=== PATIENT | female | born 1990 | race Caucasian/White ===

== ENCOUNTER 2020-05-31 10:39 | Emergency (ER) | payer MEDICAID, SELFPAY ==
[2020-05-31 11:11] VITALS: BP 113/67; PULSE 70; RESP 16; TEMP 36.9; O2SAT 100; BMI 20.5
--- NOTE | 2020-05-31 11:26 | ED.ABDPAIN ---
HPI - Abdominal Pain General Chief Complaint: Abdominal Pain Stated Complaint: upper abd pain Time Seen by Provider: 05/31/20 11:26 Source: patient Mode of arrival: ambulatory Limitations: no limitations History of Present Illness HPI narrative: one day of upper abdominal pain. Patient thought that she has a history of PE. She was admitted for psychiatric reasons at the time. patient complaining of diarrhea and shortness of breath MD elicited complaint: abdominal pain Onset (ago): day(s) Pain Consistency: constant Related Data Previous Rx's Medication Instructions Recorded pantoprazole [Protonix] 40 mg PO DAILY #20 tab 05/31/20 Allergies Allergy/AdvReac Type Severity Reaction Status Date / Time amoxicillin [Amoxicillin] Allergy Unknown HIVES Unverified 03/03/20 18:12 From Augmentin Allergy Unknown HIVES Uncoded 03/03/20 18:12 Review of Systems Constitutional: Reports no additional constitutional complaints Eyes: Reports no additional eye complaints Denies dizziness Cardiovascular: Reports no additional cardiovascular complaints Respiratory: Reports as per HPI Gastrointestinal: Reports no additional gastrointestinal complaints Genitourinary: Reports no additional female genitourinary complaints Musculoskeletal: Reports no additional musculoskeletal complaints Skin/Breast: Denies rash Reports system reviewed and no additional complaints, except as documented, Denies dizziness and Denies Sensory deficit (Neuro) Psychiatric: Denies anxiety Physical Exam Vital Signs: Vital Signs: Last Vital Signs Temp 98 F 05/31/20 11:38 Pulse 59 05/31/20 13:52 Resp 16 05/31/20 13:52 BP 103/52 L 05/31/20 13:52 Pulse Ox 99 05/31/20 13:52 Body Mass Index 20.5 Const: Other: very anxious General: healthy appearing Nutritional Appearance: average body habitus Orientation/consciousness: oriented to person and patient oriented x3 Limitations: no limitations HENMT: Head: Yes normal to inspection Ears: external ears normal General nose exam: Normal external nose present Mouth: Normal oral and palatal mucosa present and oropharynx normal Throat: Yes posterior oropharynx normal Eyes: General: appearance normal, both eyes and all related structures Neck: Other: supple Neck: Yes normal visual inspection Chest: Chest palpation & inspection: normal inspection of the chest Resp: Auscultation: clear to auscultation bilaterally Cardio: Other: 2/6 TITA Jugular venous distension: no JVD Rate: regular rate Rhythm: regular rhythm Heart sounds: S1 normal heart sound present and S2 normal heart sound present GI: Inspection: Yes normal to inspection Palpation (GI): Soft to palpation, nontender and No hepatosplenomegaly present Auscultation: normal bowel sounds : General: Yes no CVA tenderness Back/Spine/Pelvis: Back: no CVA tenderness Skin: General skin exam: no rashes or lesions noted Neuro: General: oriented to person and patient oriented x3 Cranial nerves: Yes CN's II-XII intact bilaterally Motor exam (neuro): 5/5 motor strength present throughout Sensory Exam: No Sensory deficit (Neuro) Extrem: General: Yes normal to inspection Psych: Appearance: grossly normal MDM - Abdominal Pain MDM Narrative Medical decision making narrative: patient resting comfortably no evidence of acute abdominal pathology Differential Diagnosis Differential diagnosis: Likely abdominal pain, gastroenteritis and gastritis Lab Data Result diagrams: 05/31/20 12:05/31/20 12: Labs: Lab Results 05/31/20 05/31/20 05/31/20 Range/Units 12:28 12: 12:28 WBC 5.4 (4.8-10.8) X10*3/uL RBC 4.89 (4.20-5.50) X10*6/uL Hgb 12.6 (12.0-16.0) g/dl Hct 39.8 (37-47) % MCV 81.4 (80-98) fL MCH 25.8 L (27.0-33.0) pg MCHC 31.7 (31.0-35.0) g/dl RDW 16.6 H (11.0-16.0) % Plt Count 295 (160-400) X10*3/uL MPV 11.8 (9.4-12.3) fL Immature Gran % (Auto) 0.2 (0.0-0.4) % Neut % (Auto) 54.2 (45-73) % Lymph % (Auto) 39.1 (20-40) % [place] % (Auto) 6.1 (2-11) % Eos % (Auto) 0.2 (0-4) % Baso % (Auto) 0.2 (0-2) % Lymph # (Auto) 2.1 (1.2-4.9) X10*3/uL [place] # (Auto) 0.3 (0.1-1.2) X10*3/uL Eos # (Auto) 0.0 (0.0-0.4) X10*3/uL Baso # (Auto) 0.0 (0.0-0.2) X10*3/uL Abs Immat Gran (auto) 0.01 (0.00-0.03) X10*3/uL Absolute Neuts (auto) 2.9 (2.0-8.3) X10*3/uL Absolute Nucleated RBC 0.000 (0.0-0.012) X10*3/uL Nucleated RBC % (auto) 0.0 (0.0-0.2) /100WBC D-Dimer < 200 NG/ML Sodium 140 (135-145) mmol/L Potassium 4.1 (3.3-5.1) mmol/l Chloride 106 (96-108) mmol/L Carbon Dioxide 26 (22-29) mmol/L Anion Gap 12 (12-20) BUN 8 L (9-16) mg/dL Creatinine 0.86 (0.5-1.4) mg/dL Estim Creat Clear Calc 82.1 Estimated GFR > 60 Random Glucose 86 (60-115) mg/dL Calcium 9.8 (8.4-10.2) mg/dL Total Bilirubin 0.5 (0.0-1.0) mg/dL Direct Bilirubin 0.2 (0.0-0.5) mg/dL AST 19 (5-31) U/L ALT 44 H (0-31) U/L Alkaline Phosphatase 59 (39-117) U/L Total Protein 8.5 H (6.5-8.0) g/dL Albumin 5.3 H (3.5-5.0) g/dL Lipase 18 (8-78) U/L Urine Color Urine Appearance Urine pH (5.0-8.0) Ur Specific [place] (1.005-1.025) Urine Protein (NEG-TRACE) MG/DL Urine Glucose (UA) (NEG) MG/DL Urine Ketones (NEG) MG/DL Urine Blood (NEG) Urine Nitrite (NEG) Ur Leukocyte Esterase (NEG) Urine RBC (0) /HPF Urine WBC (0-4) /HPF Ur Squamous Epith Cells /LPF Urine Bacteria /LPF Urine Mucus /LPF Urine Test (NEGATIVE) Coronavirus (PCR) (Negative) SARS-CoV-2 (PCR) Influenza Type A (PCR) (Negative) Influenza Type B (PCR) (Negative) RSV RNA Qual (PCR) (Negative) 05/31/20 05/31/20 05/31/20 Range/Units 12:28 12:28 12:29 WBC (4.8-10.8) X10*3/uL RBC (4.20-5.50) X10*6/uL Hgb (12.0-16.0) g/dl Hct (37-47) % MCV (80-98) fL MCH (27.0-33.0) pg MCHC (31.0-35.0) g/dl RDW (11.0-16.0) % Plt Count (160-400) X10*3/uL MPV (9.4-12.3) fL Immature Gran % (Auto) (0.0-0.4) % Neut % (Auto) (45-73) % Lymph % (Auto) (20-40) % [place] % (Auto) (2-11) % Eos % (Auto) (0-4) % Baso % (Auto) (0-2) % Lymph # (Auto) (1.2-4.9) X10*3/uL [place] # (Auto) (0.1-1.2) X10*3/uL Eos # (Auto) (0.0-0.4) X10*3/uL Baso # (Auto) (0.0-0.2) X10*3/uL Abs Immat Gran (auto) (0.00-0.03) X10*3/uL Absolute Neuts (auto) (2.0-8.3) X10*3/uL Absolute Nucleated RBC (0.0-0.012) X10*3/uL Nucleated RBC % (auto) (0.0-0.2) /100WBC D-Dimer NG/ML Sodium (135-145) mmol/L Potassium (3.3-5.1) mmol/l Chloride (96-108) mmol/L Carbon Dioxide (22-29) mmol/L Anion Gap (12-20) BUN (9-16) mg/dL Creatinine (0.5-1.4) mg/dL Estim Creat Clear Calc Estimated GFR Random Glucose (60-115) mg/dL Calcium (8.4-10.2) mg/dL Total Bilirubin (0.0-1.0) mg/dL Direct Bilirubin (0.0-0.5) mg/dL AST (5-31) U/L ALT (0-31) U/L Alkaline Phosphatase (39-117) U/L Total Protein (6.5-8.0) g/dL Albumin (3.5-5.0) g/dL Lipase (8-78) U/L Urine Color YELLOW Urine Appearance CLEAR Urine pH 6.0 (5.0-8.0) Ur Specific [place] 1.020 (1.005-1.025) Urine Protein NEG (NEG-TRACE) MG/DL Urine Glucose (UA) NEG (NEG) MG/DL Urine Ketones 5 (NEG) MG/DL Urine Blood NEG (NEG) Urine Nitrite NEG (NEG) Ur Leukocyte Esterase TRACE H (NEG) Urine RBC 0 (0) /HPF Urine WBC 1-4 (0-4) /HPF Ur Squamous Epith Cells 2+ /LPF Urine Bacteria NONE /LPF Urine Mucus 1+ /LPF Urine Test NEGATIVE (NEGATIVE) Coronavirus (PCR) NEGATIVE (Negative) SARS-CoV-2 (PCR) Cancelled Influenza Type A (PCR) NEGATIVE (Negative) Influenza Type B (PCR) NEGATIVE (Negative) RSV RNA Qual (PCR) NEGATIVE (Negative) Discharge Plan Discharge Clinical Impression: Gastritis and duodenitis Patient Disposition: Home, Self-Care Instructions: Gastritis (ED) Prescriptions: New pantoprazole [Protonix] 40 mg tablet,delayed release (DR/EC) 40 mg PO DAILY Qty: 20 RF: 0 PMFSH Past Medical History Medical History Interstitial cystitis Pulmonary embolism Social History Social History Advance Directives: No Advance Directives Information Provided: No
--- NOTE | 2020-05-31 11:34 | XR_ITS ---
EXAMINATION: XR CHEST CLINICAL INFORMATION: Chest pain, shortness of breath COMPARISON: None TECHNIQUE: 2 views of the chest were obtained. FINDINGS: There is no pneumothorax, pleural reaction, airspace consolidation, or groundglass opacity. The costophrenic sulci are clear. There is no effusion. The heart is normal in size and the hilar and mediastinal contours are normal. There is mild dextrocurvature thoracolumbar region. There is a fine 6 mm needle or wire overlying right base of neck, presumably outside of the patient. Clinically correlate. XR/XR chest 2V IMPRESSION: 1. Lungs clear. 2. 6 mm needle or wire overlying right base of neck, presumably outside of the patient.
[2020-05-31 11:38] VITALS: BP 127/54; PULSE 90; RESP 15; TEMP 36.6; O2SAT 97; BMI 20.5
[2020-05-31 12:36] LABS: MANUAL DIFF FLAG NO
[2020-05-31 12:42] LABS: Basophils Percent Auto 0.2 % (0-2); Eosinophils Percent Auto 0.2 % (0-4); Hematocrit 39.8 % (37-47); Hemoglobin 12.6 g/dl (12.0-16.0); Imm Gran Abs Auto 0.01 X10*3/uL (0.00-0.03); Imm Gran Pct Auto 0.2 % (0.0-0.4); Lymphocytes Absolute Auto 2.1 X10*3/uL (1.2-4.9); Lymphocytes Percent Auto 39.1 % (20-40); Mean Corpuscular HGB Conc 31.7 g/dl (31.0-35.0); Mean Corpuscular Hemoglobin 25.8 pg (27.0-33.0); Mean Corpuscular Volume 81.4 fL (80-98); Mean Platelet Volume 11.8 fL (9.4-12.3); Monocytes Absolute Auto 0.3 X10*3/uL (0.1-1.2); Monocytes Percent Auto 6.1 % (2-11); Neutrophils Absolute Auto 2.9 X10*3/uL (2.0-8.3); Neutrophils Percent Auto 54.2 % (45-73); Platelet Count 295 X10*3/uL (160-400); Red Blood Count 4.89 X10*6/uL (4.20-5.50); Red Cell Distribution Width 16.6 % (11.0-16.0); White Blood Count 5.4 X10*3/uL (4.8-10.8)
[2020-05-31 12:46] LABS: Glucose Urine UA NEG (NEG); Leukocyte Esterase Urine TRACE (NEG); Nitrite Urine NEG (NEG); Urine Blood NEG (NEG); Urine Ketones 5 MG/DL (NEG); Urine Protein NEG (NEG-TRACE)
[2020-05-31] MEDS: LORazepam 2 MG/ML VIAL 1 MG IVPUSH (12:48)
[2020-05-31 12:49] LABS: UPreg QC Valid YES; Urine Pregnancy NEGATIVE (NEGATIVE)
[2020-05-31 12:50] LABS: Appearance Urine CLEAR; Color Urine YELLOW
[2020-05-31 12:52] LABS: D Dimer < 200 NG/ML
[2020-05-31 13:04] LABS: Mucus Urine 1+ /LPF; RBC Urine 0 /HPF (0); Squamous Epithelial Cell Urine 2+ /LPF
[2020-05-31 13:09] LABS: Alanine Aminotransferase 44 U/L (0-31); Albumin Level 5.3 g/dL (3.5-5.0); Alkaline Phosphatase 59 U/L (39-117); Anion Gap 12 (12-20); Aspartate Amino Transferase 19 U/L (5-31); Bilirubin Direct 0.2 mg/dL (0.0-0.5); Bilirubin Total 0.5 mg/dL (0.0-1.0); Blood Urea Nitrogen 8 mg/dL (9-16); Calcium 9.8 mg/dL (8.4-10.2); Carbon Dioxide 26 mmol/L (22-29); Chloride 106 mmol/L (96-108); Creatinine Clr Calc Pharmacy 82.1; Estimated Glomerular Filt Rate > 60; Glucose Random 86 mg/dL (60-115); Lipase 18 U/L (8-78); Potassium 4.1 mmol/l (3.3-5.1); Sodium 140 mmol/L (135-145); Total Protein 8.5 g/dL (6.5-8.0)
[2020-05-31 13:18] LABS: Influenza A PCR NEGATIVE (Negative); Influenza B PCR NEGATIVE (Negative); Resp Syncy Virus RNA Qual PCR NEGATIVE (Negative); SARS COV2 PCR INHOUSE NEGATIVE (Negative)
[2020-05-31 13:52] VITALS: BP 103/52; PULSE 59; RESP 16; O2SAT 99
== END 2020-05-31 14:22 | disposition home or self-care (01) ==
PROVIDERS: Emergency Provider Emergency Medicine
DX: K29.00 Acute gastritis without bleeding (principal); K29.80 Duodenitis without bleeding; R10.10 Upper abdominal pain, unspecified; Z20.828 Contact with and (suspected) exposure to other viral communicable diseases; Z79.899 Other long term (current) drug therapy
CPT/HCPCS: 0241U; 36415; 71046; 80048; 80076; 81001; 81025; 83690; 85025; 85379; 87086; 96374; 99283; 99284; J2060; U0003

== ENCOUNTER 2020-06-22 18:31 | Inpatient (IN) | payer MEDICAID, OTHER, SELFPAY ==
[2020-06-22 20:00] VITALS: BP 119/73; PULSE 79; RESP 18; TEMP 37.2; O2SAT 99
[2020-06-22 20:19] VITALS: BP 124/58; PULSE 78; RESP 16; TEMP 36.7; O2SAT 99; BMI 19.7
--- NOTE | 2020-06-22 21:12 | MHC.RECOVSUP ---
? Reason for consult seeking detox o Current location: [facility] o Identified substance use concern: Herion Withdrawal - Seeking ATS (detox) - Support ? Intervention: o ATS bed search started 9:15PM/compleated 9:30PM Patient wants to go start MAT. But Doctor Deem patient not eligible o Community resources provided o Harm reduction discussion ? Plan: Follow up tomorrow o Patient awaiting crisis evaluation ? Additional information:
--- NOTE | 2020-06-22 21:33 | ED_ITS ---
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 She states that she has been suicidal for the last week and has a plan to use medications such as her prior overdose with Zyprexa that she states occurred approximately 2 years ago. On review of documentation she was last admitted on [facility] in 2015 and at that time it was for alcohol as well as bipolar disorder. Currently, patient denies any fever, chills, shortness of breath, chest pain/palpitations, nausea/vomiting, abdominal pain, but is having some loose stools but otherwise denies urinary pain/burning/frequency and her LMP was approximately 2 weeks ago. Related Data Home Medications Medication Instructions Recorded Confirmed No Known Home Meds 06/22/20 06/22/20 Allergies Allergy/AdvReac Type Severity Reaction Status Date / Time amoxicillin [Amoxicillin] Allergy Unknown HIVES Verified 06/22/20 20:19 From Augmentin Allergy Unknown HIVES Uncoded 03/03/20 18:12 Review of Systems Review of Systems: Pertinent positives and negatives as stated in HPI 10 point review systems is otherwise negative. PMFSH Past Medical History Medical History (Updated 06/22/20 @ 21:35 by Lela Jeffers MD) Bipolar 1 disorder Interstitial cystitis Pulmonary embolism Social History Social History Advance Directives: No Advance Directives Information Provided: No Physical Exam Vital Signs: Vital Signs: Last Vital Signs Temp 97.9 F 06/22/20 22:00 Pulse 71 06/22/20 22:00 Resp 17 06/22/20 22:00 BP 126/58 L 06/22/20 22:00 Pulse Ox 99 06/22/20 22:00 Body Mass Index 19.7 VITAL SIGNS: Reviewed. GENERAL: Well developed, well nourished, in no acute distress. EARS: Ext canals without abnormality, TMs non-bulging and non-erythematous NOSE: Nares patent bilateral OROPHARYNX: no oral lesions noted, posterior pharynx clear and non-erythematous without noted tonsillar enlargement/erythema/exudates NECK: Supple, no adenopathy LUNGS: Normal breath sounds. No adventitious sounds or accessory muscle use. SpO2<99> CARDIOVASCULAR: Regular rate and rhythm without noted murmurs, no JVD or lower extremity edema. ABDOMEN: Soft, non-tender, non-distended with bowel sounds. No rigidity. No guarding. No palpable masses or hernias noted SKIN: Inspection of the skin reveals no rashes, but areas of ?skin picking? NEUROLOGIC: Alert and oriented x 4. Course Course Course Narrative: This is a 30-year-old female with history and clinical presentation consistent with request for detox from poly substances as well as stated suicidal ideation and vague plan. Will obtain labs, UA, COVID-19 swab and then clear for further evaluation by crisis. Review of all investigations is negative for any acute findings and patient is medically cleared for further evaluation by the crisis team. MDM - Psych Restraints Face to Face Assessment: Face to Face Assessment: Current Situation: After assessment of the patient, a review of the pertinent medical record and a discussion with nursing staff, I feel the patient requires a restrain interven tion. Reaction To: [] Medical Condition: [] Behavioral State: [] Continued Need: [] Lab Data Result diagrams: 06/23/20 05:31 06/23/20 05:31 Labs: Lab Results 06/22/20 06/22/20 06/23/20 Range/Units 22:15 22:15 03:41 WBC (4.8-10.8) X10*3/uL RBC (4.20-5.50) X10*6/uL Hgb (12.0-16.0) g/dl Hct (37-47) % MCV (80-98) fL MCH (27.0-33.0) pg MCHC (31.0-35.0) g/dl RDW (11.0-16.0) % Plt Count (160-400) X10*3/uL MPV (9.4-12.3) fL Immature Gran % (Auto) (0.0-0.4) % Neut % (Auto) (45-73) % Lymph % (Auto) (20-40) % [place] % (Auto) (2-11) % Eos % (Auto) (0-4) % Baso % (Auto) (0-2) % Lymph # (Auto) (1.2-4.9) X10*3/uL [place] # (Auto) (0.1-1.2) X10*3/uL Eos # (Auto) (0.0-0.4) X10*3/uL Baso # (Auto) (0.0-0.2) X10*3/uL Abs Immat Gran (auto) (0.00-0.03) X10*3/uL Absolute Neuts (auto) (2.0-8.3) X10*3/uL Absolute Nucleated RBC (0.0-0.012) X10*3/uL Nucleated RBC % (auto) (0.0-0.2) /100WBC Sodium (135-145) mmol/L Potassium (3.3-5.1) mmol/l Chloride (96-108) mmol/L Carbon Dioxide (22-29) mmol/L Anion Gap (12-20) BUN (9-16) mg/dL Creatinine (0.5-1.4) mg/dL Estim Creat Clear Calc Estimated GFR Random Glucose (60-115) mg/dL Calcium (8.4-10.2) mg/dL Magnesium (1.6-2.6) mg/dL Total Bilirubin (0.0-1.0) mg/dL AST (5-31) U/L ALT (0-31) U/L Alkaline Phosphatase (39-117) U/L Total Protein (6.5-8.0) g/dL Albumin (3.5-5.0) g/dL Urine Color YELLOW Urine Appearance CLEAR Urine pH 7.5 (5.0-8.0) Ur Specific [place] 1.020 (1.005-1.025) Urine Protein NEG (NEG-TRACE) MG/DL Urine Glucose (UA) NEG (NEG) MG/DL Urine Ketones NEG (NEG) MG/DL Urine Blood NEG (NEG) Urine Nitrite NEG (NEG) Ur Leukocyte Esterase NEG (NEG) Urine Test NEGATIVE (NEGATIVE) Urine Opiates Screen POSITIVE H (Not Detect) Ur Barbiturates Screen Not Detected (Not Detect) Ur Phencyclidine Scrn Not Detected (Not Detect) Ur Amphetamines Screen Not Detected (Not Detect) U Benzodiazepines Scrn Not Detected (Not Detect) Urine Cocaine Screen POSITIVE H (Not Detect) U Marijuana (THC) Screen Not Detected (Not Detect) Ethyl Alcohol mg/dL COVID-19 (EFREN) Negative (Negative) COVID-19 Clin Com See Note 06/23/20 06/23/20 06/23/20 Range/Units 05:31 05:31 05:31 WBC 7.8 (4.8-10.8) X10*3/uL RBC 4.56 (4.20-5.50) X10*6/uL Hgb 11.5 L (12.0-16.0) g/dl Hct 36.7 L (37-47) % MCV 80.5 (80-98) fL MCH 25.2 L (27.0-33.0) pg MCHC 31.3 (31.0-35.0) g/dl RDW 15.1 (11.0-16.0) % Plt Count 338 (160-400) X10*3/uL MPV 11.2 (9.4-12.3) fL Immature Gran % (Auto) 0.1 (0.0-0.4) % Neut % (Auto) 57.1 (45-73) % Lymph % (Auto) 31.0 (20-40) % [place] % (Auto) 8.8 (2-11) % Eos % (Auto) 2.7 (0-4) % Baso % (Auto) 0.3 (0-2) % Lymph # (Auto) 2.4 (1.2-4.9) X10*3/uL [place] # (Auto) 0.7 (0.1-1.2) X10*3/uL Eos # (Auto) 0.2 (0.0-0.4) X10*3/uL Baso # (Auto) 0.0 (0.0-0.2) X10*3/uL Abs Immat Gran (auto) 0.01 (0.00-0.03) X10*3/uL Absolute Neuts (auto) 4.5 (2.0-8.3) X10*3/uL Absolute Nucleated RBC 0.000 (0.0-0.012) X10*3/uL Nucleated RBC % (auto) 0.0 (0.0-0.2) /100WBC Sodium 139 (135-145) mmol/L Potassium 4.5 (3.3-5.1) mmol/l Chloride 105 (96-108) mmol/L Carbon Dioxide 26 (22-29) mmol/L Anion Gap 13 (12-20) BUN 10 (9-16) mg/dL Creatinine 0.74 (0.5-1.4) mg/dL Estim Creat Clear Calc 91.5 Estimated GFR > 60 Random Glucose 95 (60-115) mg/dL Calcium 9.2 D (8.4-10.2) mg/dL Magnesium 2.1 (1.6-2.6) mg/dL Total Bilirubin 0.4 (0.0-1.0) mg/dL AST 23 (5-31) U/L ALT 32 H (0-31) U/L Alkaline Phosphatase 54 (39-117) U/L Total Protein 7.1 (6.5-8.0) g/dL Albumin 3.9 D (3.5-5.0) g/dL Urine Color Urine Appearance Urine pH (5.0-8.0) Ur Specific [place] (1.005-1.025) Urine Protein (NEG-TRACE) MG/DL Urine Glucose (UA) (NEG) MG/DL Urine Ketones (NEG) MG/DL Urine Blood (NEG) Urine Nitrite (NEG) Ur Leukocyte Esterase (NEG) Urine Test (NEGATIVE) Urine Opiates Screen (Not Detect) Ur Barbiturates Screen (Not Detect) Ur Phencyclidine Scrn (Not Detect) Ur Amphetamines Screen (Not Detect) U Benzodiazepines Scrn (Not Detect) Urine Cocaine Screen (Not Detect) U Marijuana (THC) Screen (Not Detect) Ethyl Alcohol < 10 mg/dL COVID-19 (EFREN) (Negative) COVID-19 Clin Com Discharge Plan Discharge Prescriptions: No Action No Known Home Meds RF: 0
[2020-06-22 22:00] VITALS: BP 126/58; PULSE 71; RESP 17; TEMP 36.6; O2SAT 99
[2020-06-22 22:31] LABS: Appearance Urine CLEAR; Color Urine YELLOW; Glucose Urine UA NEG (NEG); Leukocyte Esterase Urine NEG (NEG); Nitrite Urine NEG (NEG); PH 7.5 (5.0-8.0); Urine Blood NEG (NEG); Urine Ketones NEG (NEG); Urine Protein NEG (NEG-TRACE)
[2020-06-22 22:32] LABS: UPreg QC Valid YES; Urine Pregnancy NEGATIVE (NEGATIVE)
--- NOTE | 2020-06-22 22:32 | PC.NURSE ---
AWAITING PHELBOTOMY AT THIS TIME FOR BLOOD DRAW.
--- NOTE | 2020-06-22 23:04 | PC.NURSE ---
PER SECURITY, DRUGS TAKEN OFF PATIENT. CRACK PIPE X 2 AND NEEDLES. SECURITY DISPOSED.
--- NOTE | 2020-06-22 23:43 | PC.NURSE ---
Patient in bed appears sleeping, no distress observed/reported, [facility] faxed/called/spoke with Carly/initially told us to refer the patient to care team because is not a crises patient, on further request, agreed to put patient in queue for the morning if not seen in the morning refer to care team, care team notified, will continue to monitor.
[2020-06-22 23:59] LABS: Amphetamine Screen Urine Not Detected (Not Detect); Barbiturates, Urine Not Detected (Not Detect); Benzodiazepines Screen Urine Not Detected (Not Detect); Cannabinoid Screen Urine Not Detected (Not Detect); Cocaine Screen Urine POSITIVE (Not Detect); Opiate Screen Urine POSITIVE (Not Detect); Phencyclidine Screen Urine Not Detected (Not Detect)
[2020-06-23] VITALS (8 sets, daily range): BP systolic 120–138; BP diastolic 70–81; PULSE 71–93; RESP 16–24; TEMP 36.1–36.4; O2SAT 100
[2020-06-23] MEDS: hydrOXYzine HCL 50 MG TABLET PO ×2 (02:07→10:50)
[2020-06-23 04:06] LABS: COVID-19 Test Negative (Negative); IDNOW Serial# 9DD0AD1C
[2020-06-23 05:37] LABS: Basophils Percent Auto 0.3 % (0-2); Eosinophils Absolute Auto 0.2 X10*3/uL (0.0-0.4); Eosinophils Percent Auto 2.7 % (0-4); Hematocrit 36.7 % (37-47); Hemoglobin 11.5 g/dl (12.0-16.0); Imm Gran Abs Auto 0.01 X10*3/uL (0.00-0.03); Imm Gran Pct Auto 0.1 % (0.0-0.4); Lymphocytes Absolute Auto 2.4 X10*3/uL (1.2-4.9); MANUAL DIFF FLAG NO; Mean Corpuscular HGB Conc 31.3 g/dl (31.0-35.0); Mean Corpuscular Hemoglobin 25.2 pg (27.0-33.0); Mean Corpuscular Volume 80.5 fL (80-98); Mean Platelet Volume 11.2 fL (9.4-12.3); Monocytes Absolute Auto 0.7 X10*3/uL (0.1-1.2); Monocytes Percent Auto 8.8 % (2-11); Neutrophils Absolute Auto 4.5 X10*3/uL (2.0-8.3); Neutrophils Percent Auto 57.1 % (45-73); Platelet Count 338 X10*3/uL (160-400); Red Blood Count 4.56 X10*6/uL (4.20-5.50); Red Cell Distribution Width 15.1 % (11.0-16.0); White Blood Count 7.8 X10*3/uL (4.8-10.8)
[2020-06-23 06:06] LABS: Ethanol < 10 mg/dL
[2020-06-23 06:10] LABS: Alanine Aminotransferase 32 U/L (0-31); Albumin Level 3.9 g/dL (3.5-5.0); Alkaline Phosphatase 54 U/L (39-117); Anion Gap 13 (12-20); Aspartate Amino Transferase 23 U/L (5-31); Bilirubin Total 0.4 mg/dL (0.0-1.0); Blood Urea Nitrogen 10 mg/dL (9-16); Calcium 9.2 mg/dL (8.4-10.2); Carbon Dioxide 26 mmol/L (22-29); Chloride 105 mmol/L (96-108); Creatinine Clr Calc Pharmacy 91.5; Estimated Glomerular Filt Rate > 60; Glucose Random 95 mg/dL (60-115); Magnesium 2.1 mg/dL (1.6-2.6); Potassium 4.5 mmol/l (3.3-5.1); Sodium 139 mmol/L (135-145); Total Protein 7.1 g/dL (6.5-8.0)
--- NOTE | 2020-06-23 07:25 | PC.NURSE ---
Report received from SURESH Pham. Pt resting, resp unlabored.
--- NOTE | 2020-06-23 09:02 | ECG_ITS ---
Test Reason : MED CLEAR Blood Pressure : / mmHG Vent. Rate : 076 BPM Atrial Rate : 076 BPM P-R Int : 128 ms QRS Dur : 082 ms QT Int : 402 ms P-R-T Axes : 005 060 037 degrees QTc Int : 452 ms Normal sinus rhythm Minimal voltage criteria for LVH, may be normal variant Septal infarct , age undetermined Abnormal ECG No previous ECGs available Referred By: Generic ED Physician Electronically Signed By:Mario Castellanos
--- NOTE | 2020-06-23 09:22 | PC.NURSE ---
Pt awake, denies any concerns at this time. Pt aware that she has been accepted to [facility]- inpatient process explained though pt reports she has been hospitalized in the past and is familiar w/ inpatient care.
--- NOTE | 2020-06-23 10:17 | MHC.RECOVSUP ---
Recovery Support note: Patient is a 30 year old Palestinian speaking female who [place] [facility] [place]. Patient reported SI and was determined to be in need of an inpatient psychiatric admission. Patient expressed to a Steaming Cabinet Tender that she may be interested in getting restarted on Suboxone. This development writer and the Recovery Support nurse met with patient to discuss MAT. Patient reports she is starting to feel withdrawal symptoms but she would rather wait until she gets on the psychiatric unit to start MAT. Discussed case with patient's RN.
[2020-06-23] MEDS: Buprenorphine/Naloxone 4/1 mg FILM 1 FILM SUBLINGUAL ×2 (10:50→11:47)
--- NOTE | 2020-06-23 10:54 | PC.NURSE ---
Pt requesting suboxone- reviewed cows score w/ prtovider. pt medicated as ordered.
--- NOTE | 2020-06-23 11:44 | PC.NURSE ---
reviewed COWS score w/ provider- pt reporting significant anxiety.
[2020-06-23] MEDS: LORazepam 1 MG TABLET PO (11:46)
--- NOTE | 2020-06-23 12:42 | PC.NURSE ---
Report given to tanya Alexander on [facility].
--- NOTE | 2020-06-23 12:52 | PC.NURSE ---
pt reports she is feeling better, currently eating lunch.
--- NOTE | 2020-06-23 14:22 | PC.NURSE ---
Pt resting, resp unlabored
--- NOTE | 2020-06-23 15:23 | PC.NURSE ---
Care team in- pt transferred to [facility]. No Concerns reported.
--- NOTE | 2020-06-23 16:52 | PC.ADMIT ---
Pt arrived on the unit at 1510. Pt is a 30 year ol single Bulgarian speaking ( White) female who self-presented to [facility] ED seeking detox and expressed suicidal ideation with a plan to overdose on Fentanyl. She said the feeling of wanting to is stronger than ever, is homeless, without resources and stated she is self medicating with cocaine. Evaluation indicated that patient was inpatient at [facility] in [place] in May 2020, she has not taken medications in weeks. Pt states that she is not a smoker or drinkalcohol. Pt reports that she is currently withdrawing. Pt skin a little warm. Pt tired just wants to go back and lay down after completing intake.
[2020-06-23] MEDS: LORazepam 0.5 MG TABLET PO (18:33)
[2020-06-23] MEDS: cloNIDine HCL 0.1 MG TABLET PO (18:34)
[2020-06-23 20:04] LABS: TSH reflex Free T4 0.27 mIU/mL (0.32-4.0)
[2020-06-23 20:11] LABS: Vitamin D 25-OH Total 27.5 ng/mL (>30)
[2020-06-23 20:14] LABS: Folate 10.8 ng/mL (> or = 4.0); Vitamin B12 467 pg/mL (200-900)
[2020-06-23 20:36] LABS: Free T4 (Free Thyroxine) 1.04 ng/dL (0.71-1.85)
[2020-06-24 09:11] VITALS: BP 138/62; PULSE 96
[2020-06-24] MEDS: LORazepam 0.5 MG TABLET PO ×2 (09:11→13:50)
[2020-06-24] MEDS: cloNIDine HCL 0.1 MG TABLET PO (09:11)
[2020-06-24] MEDS: Buprenorphine/Naloxone 8/2 mg FILM 1 FILM SUBLINGUAL (13:50)
--- NOTE | 2020-06-24 14:43 | HO.PSYADMNOT ---
HPI Chief Complaint: SI, Bipolar I, heroin,cocaine ,etoh dep Sources of Information: patient interviewed, chart reviewed and crisis/core team assessment reviewed HPI Narrative: 30 yo female, history of Bipolar I, presents with SI, plan to OD on Fentanyl and sx of depression, anxiety in the context of opiate (heroin IV) and coaine/crack (IV) abuse. Reports last use was ~2 days [employer] and she uses a lot . Reports homelessness, no current supports. SI is the strongest it has ever been. She has stopped Abilify, Gabapentin, Lamictal, Trazodone which she believes were helpful in sx mgt. States she was recently released from [facility] in May. Past Psychiatric History: No current out patient providers Hx of [facility] [place] [facility] [place]: Risperdal-effective, Lamictal-effective, [place]-effective, Olanzapine-hx of OD Medical Evaluation Reviewed: Yes [facility] Medical History (Updated 06/24/20 @ 19:44 by Leny Guardado APRN) Bipolar 1 disorder Cocaine dependence Interstitial cystitis Opioid dependence Pulmonary embolism Narrative: Denies hx of Seizure, TBI Surgical History (Updated 06/24/20 @ 19:39 by Leny Guardado APRN) H/O adenoidectomy Hx of tonsillectomy Family History: Bipolar Disorder Social History: Pt reports she is homeless and unemployed. Substance History: Alcohol, Cocaine-IV, Heroin-IV Hx of [place] [address] Trauma History: acknowledges without specific details. Diagnostics Vital Signs (24Hr): Vital Signs - 24 hr 06/23/20 18:00 06/23/20 18:34 06/24/20 09:11 Temperature 97 F Pulse Rate 71 71 96 Respiratory Rate 16 Blood Pressure 120/70 120/70 138/62 Body Mass Index 19.7 Labs Results: 06/23/20 05:31 06/23/20 05:31 Labs: Laboratory Results - last 48 hr 06/22/20 06/22/20 06/23/20 22:15 22:15 03:41 WBC RBC Hgb Hct MCV MCH MCHC RDW Plt Count MPV Immature Gran % (Auto) Neut % (Auto) Lymph % (Auto) Weber % (Auto) Eos % (Auto) Baso % (Auto) Lymph # (Auto) Weber # (Auto) Eos # (Auto) Baso # (Auto) Abs Immat Gran (auto) Absolute Neuts (auto) Absolute Nucleated RBC Nucleated RBC % (auto) Sodium Potassium Chloride Carbon Dioxide Anion Gap BUN Creatinine Estim Creat Clear Calc Estimated GFR Random Glucose Calcium Magnesium Total Bilirubin AST ALT Alkaline Phosphatase Total Protein Albumin Vitamin B12 25-OH Vitamin D Total Folate TSH Free T4 Urine Color YELLOW Urine Appearance CLEAR Urine pH 7.5 Ur Specific Kill[place] 1.020 Urine Protein NEG Urine Glucose (UA) NEG Urine Ketones NEG Urine Blood NEG Urine Nitrite NEG Ur Leukocyte Esterase NEG Urine Test NEGATIVE Urine Opiates Screen POSITIVE H Ur Barbiturates Screen Not Detected Ur Phencyclidine Scrn Not Detected Ur Amphetamines Screen Not Detected U Benzodiazepines Scrn Not Detected Urine Cocaine Screen POSITIVE H U Marijuana (THC) Screen Not Detected Ethyl Alcohol COVID-19 (EFREN) Negative COVID-19 Clin Com See Note 06/23/20 06/23/20 06/23/20 05:31 05:31 05:31 WBC 7.8 RBC 4.56 Hgb 11.5 L Hct 36.7 L MCV 80.5 MCH 25.2 L MCHC 31.3 RDW 15.1 Plt Count 338 MPV 11.2 Immature Gran % (Auto) 0.1 Neut % (Auto) 57.1 Lymph % (Auto) 31.0 Weber % (Auto) 8.8 Eos % (Auto) 2.7 Baso % (Auto) 0.3 Lymph # (Auto) 2.4 Weber # (Auto) 0.7 Eos # (Auto) 0.2 Baso # (Auto) 0.0 Abs Immat Gran (auto) 0.01 Absolute Neuts (auto) 4.5 Absolute Nucleated RBC 0.000 Nucleated RBC % (auto) 0.0 Sodium 139 Potassium 4.5 Chloride 105 Carbon Dioxide 26 Anion Gap 13 BUN 10 Creatinine 0.74 Estim Creat Clear Calc 91.5 Estimated GFR > 60 Random Glucose 95 Calcium 9.2 D Magnesium 2.1 Total Bilirubin 0.4 AST 23 ALT 32 H Alkaline Phosphatase 54 Total Protein 7.1 Albumin 3.9 D Vitamin B12 25-OH Vitamin D Total Folate TSH Free T4 Urine Color Urine Appearance Urine pH Ur Specific Killen Urine Protein Urine Glucose (UA) Urine Ketones Urine Blood Urine Nitrite Ur Leukocyte Esterase Urine Test Urine Opiates Screen Ur Barbiturates Screen Ur Phencyclidine Scrn Ur Amphetamines Screen U Benzodiazepines Scrn Urine Cocaine Screen U Marijuana (THC) Screen Ethyl Alcohol < 10 COVID-19 (EFREN) COVID-19 Lamsa 06/23/20 06/23/20 18:50 18:50 WBC RBC Hgb Hct MCV MCH MCHC RDW Plt Count MPV Immature Gran % (Auto) Neut % (Auto) Lymph % (Auto) Weber % (Auto) Eos % (Auto) Baso % (Auto) Lymph # (Auto) Weber # (Auto) Eos # (Auto) Baso # (Auto) Abs Immat Gran (auto) Absolute Neuts (auto) Absolute Nucleated RBC Nucleated RBC % (auto) Sodium Potassium Chloride Carbon Dioxide Anion Gap BUN Creatinine Estim Creat Clear Calc Estimated GFR Random Glucose Calcium Magnesium Total Bilirubin AST ALT Alkaline Phosphatase Total Protein Albumin Vitamin B12 467 25-OH Vitamin D Total 27.5 Folate 10.8 TSH 0.27 L Free T4 1.04 Urine Color Urine Appearance Urine pH Ur Specific Killen Urine Protein Urine Glucose (UA) Urine Ketones Urine Blood Urine Nitrite Ur Leukocyte Esterase Urine Test Urine Opiates Screen Ur Barbiturates Screen Ur Phencyclidine Scrn Ur Amphetamines Screen U Benzodiazepines Scrn Urine Cocaine Screen U Marijuana (THC) Screen Ethyl Alcohol COVID-19 (EFREN) COVID-19 [facility] Com Meds/Allergies Meds Home Medications Acetaminophen (Acetaminophen 325 Mg Tablet) 650 mg PO Q6H PRN PRN Reason: Headache/Pain Mild Scale (1-3) Al Hydroxide/Mg Hydroxide (Magnesium Hydrox/Alum Hydrox 30 Ml Oral.Susp) 30 ml PO Q6H PRN PRN Reason: Heartburn/Nausea Aripiprazole (Aripiprazole 10 Mg Tablet) 10 mg PO BEDTIME [facility] Buprenorphine/Naloxone (Buprenorphine/Naloxone 8/2 Mg Film) 1 film SUBLINGUAL DAILY [facility] Last Admin: 06/24/20 13:50 Dose: 1 film Documented by: Clonidine HCl (Clonidine Hcl 0.1 Mg Tablet) 0.1 mg PO BID PRN; Protocol PRN Reason: withdrawal Last Admin: 06/24/20 09:11 Dose: 0.1 mg Documented by: Gabapentin (Gabapentin 100 Mg Capsule) 200 mg PO TID [facility] Last Admin: 06/24/20 14:59 Dose: 200 mg Documented by: Hydroxyzine HCl (Hydroxyzine Hcl 25 Mg Tablet) 25 mg PO BEDTIME PRN PRN Reason: Anxiety Lamotrigine (Lamotrigine 25 Mg Tablet) 25 mg PO BID [facility] Lorazepam (Lorazepam 0.5 Mg Tablet) 0.5 mg PO Q4H PRN PRN Reason: anxiety, Last Admin: 06/24/20 13:50 Dose: 0.5 mg Documented by: Magnesium Hydroxide (Milk Of Magnesia 30 Ml Oral.Susp) 30 ml PO DAILY PRN PRN Reason: Constipation Multivitamins/Minerals (Multivitamin With Minerals Tablet) 1 tab PO DAILY [facility] Last Admin: 06/24/20 09:09 Dose: 1 tab Documented by: Trazodone HCl (Trazodone Hcl 50 Mg Tablet) 50 mg PO BEDTIME PRN PRN Reason: Insomnia Vitamin D (Cholecalciferol (Vitamin D3) 25 Mcg Tablet) 25 mcg PO DAILY [facility] Allergies Allergies Allergy/AdvReac Type Severity Reaction Status Date / Time amoxicillin [Amoxicillin] Allergy Unknown HIVES Verified 06/22/20 20:19 From Augmentin Allergy Unknown HIVES Uncoded 03/03/20 18:12 Mental Status Exam Mental Status Exam Patient Appearance: Fatigued and Disheveled Patient Orientation: Person, Place, Time and Situation Level of Consciousness: Alert Patient Behavior: Guarded, Anxious and Avoidant Mood Description: Constricted, Labile and Angry Affect Description: Constricted, Labile and Angry Patient Cognition Impaired: No Ability to Follow Directions: Fair Speech Pattern: Spontaneous Speech Memory Description: Episodic Impaired Hallucinations: None Delusions: Not Present Thought Process: Distracted Thought Content: positive for [place] and positive for Circumstantial Depressive Symptoms: Increased Anxiety and Increased Irritability Judgement: Fair Assessment & Plan Assessment & Plan (1) Opioid dependence: Status: Acute Code(s): F11.20 - Opioid dependence, uncomplicated Assessment and Plan: -Continue Suboxone -Pt's LTG is Methadone Maintenance (2) Cocaine dependence: Status: Acute Code(s): F14.20 - Cocaine dependence, uncomplicated (3) Bipolar 1 disorder: Status: Acute Code(s): F31.9 - Bipolar disorder, unspecified Assessment and Plan: Re-Start medications Abilify 10 mg HS (hx of 20 mg daily) Lamictal 25 mg bid (hx of 200 mg daily) Gabapentin 200 mg tid (hx of 800 mg tid) Trazodone 50 mg hs prn Patient educated on: diagnosis, medication risk/benefits, substance abuse and therapeutic strategies Informed Consent: further education needed Reason for continued inpatient stay Substantial Risk for: harm to self, inability to function and rapid decompensation
[2020-06-24] MEDS: Gabapentin 100 MG CAPSULE 200 MG PO ×2 (14:59→22:16)
[2020-06-24 19:15] VITALS: BP 120/60; PULSE 73; TEMP 37.1
[2020-06-24] MEDS: traZODone HCL 50 MG TABLET PO (22:20)
[2020-06-25] MEDS: LORazepam 0.5 MG TABLET PO ×3 (05:20→21:26)
[2020-06-25 06:00] VITALS: BP 106/66; PULSE 91; TEMP 36.7
[2020-06-25] MEDS: lamoTRIgine 25 MG TABLET PO (09:19)
[2020-06-25] MEDS: Gabapentin 100 MG CAPSULE 200 MG PO ×3 (09:19→21:18)
[2020-06-25] MEDS: Cholecalciferol (Vitamin D3) 25 MCG TABLET PO (09:19)
[2020-06-25] MEDS: Buprenorphine/Naloxone 8/2 mg FILM 1 FILM SUBLINGUAL (09:48)
[2020-06-25] MEDS: Acetaminophen 325 MG TABLET 650 MG PO (14:33)
--- NOTE | 2020-06-25 15:44 | P.PNPSI_ITS ---
Subjective Subjective Date of Service: 06/25/20 Reason For Visit: SI, Bipolar I, heroin,cocaine ,etoh dep Interim History: Pt Seen; chart reviewed and case discussed with nursing Vitals reviewed: wnl Lab reviewed Pt reports her mood is better since coming to the unit and denies any SI; she remains anxious and uncomfortable due to withdrawal. She is intermittently tearful. Pt is glad to be back on Suboxone saying it's helped in the past, however she thinks she'll likely do better on higher dose, to which customs entry writer agreed. Patient says she only wants her Abilify and Lamictal in the AM; she's not sure why she's on Lamictal BID and only wants it once daily. Medication Compliance: Yes Mental Status Exam Mental Status Exam Patient Appearance: Well Grooomed and Appropriate Patient Orientation: Person, Place, Time and Situation Level of Consciousness: Awake Patient Behavior: Anxious Mood Description: Anxious Affect Description: Labile Ability to Follow Directions: Fair Speech Pattern: Clear Hallucinations: None Delusions: Not Present Thought Content: positive for Intact Judgement: Fair Diagnostics Vital Signs (24Hr): Vital Signs - 24 hr 06/24/20 19:15 06/25/20 06:00 Temperature 98.8 F 98.0 F Pulse Rate 73 91 Blood Pressure 120/60 106/66 Body Mass Index 19.7 Labs Results: 06/23/20 05:31 06/23/20 05:31 Labs: Laboratory Results - last 48 hr 06/23/20 06/23/20 18:50 18:50 Vitamin B12 467 25-OH Vitamin D Total 27.5 Folate 10.8 TSH 0.27 L Free T4 1.04 Medications Medications Current Medications Generic Name Dose Route Start Last Admin Trade Name Freq PRN Reason Stop Dose Admin Acetaminophen 650 mg 06/23/20 15:00 06/25/20 14:33 Acetaminophen 325 Mg Tablet PO 650 mg Q6H PRN Administration Headache/Pain Mild Scale (1-3) Al Hydroxide/Mg Hydroxide 30 ml 06/23/20 15:00 Magnesium Hydrox/Alum Hydrox 30 Ml Oral.Susp PO Q6H PRN Heartburn/Nausea Aripiprazole 10 mg 06/24/20 21:00 06/24/20 22:15 Aripiprazole 10 Mg Tablet PO Not Given BEDTIME [facility] Buprenorphine/Naloxone 1 film 06/24/20 10:30 06/25/20 09:48 Buprenorphine/Naloxone 8/2 Mg Film SUBLINGUAL 1 film DAILY [facility] Administration Clonidine HCl 0.1 mg 06/23/20 16:46 06/24/20 09:11 Clonidine Hcl 0.1 Mg Tablet PO 0.1 mg BID PRN Administration withdrawal Protocol Gabapentin 200 mg 06/24/20 15:00 06/25/20 14:14 Gabapentin 100 Mg Capsule PO 200 mg TID LUCAS Administration Hydroxyzine HCl 25 mg 06/23/20 15:00 Hydroxyzine Hcl 25 Mg Tablet PO BEDTIME PRN Anxiety Lamotrigine 25 mg 06/24/20 21:00 06/25/20 09:19 Lamotrigine 25 Mg Tablet PO 25 mg BID LUCAS Administration Lorazepam 0.5 mg 06/23/20 16:46 06/25/20 13:38 Lorazepam 0.5 Mg Tablet PO 0.5 mg Q4H PRN Administration anxiety, Magnesium Hydroxide 30 ml 06/23/20 15:00 Milk Of Magnesia 30 Ml Oral.Susp PO DAILY PRN Constipation Multivitamins/Minerals 1 tab 06/24/20 09:00 06/25/20 09:19 Multivitamin With Minerals Tablet PO 1 tab DAILY [facility]AS Administration Trazodone HCl 50 mg 06/23/20 15:00 06/24/20 22:20 Trazodone Hcl 50 Mg Tablet PO 50 mg BEDTIME PRN Administration Insomnia Vitamin D 25 mcg 06/25/20 09:00 06/25/20 09:19 Cholecalciferol (Vitamin D3) 25 Mcg Tablet PO 25 mcg DAILY [facility] Administration Allergies Allergies Allergy/AdvReac Type Severity Reaction Status Date / Time amoxicillin [Amoxicillin] Allergy Unknown HIVES Verified 06/22/20 20:19 From Augmentin Allergy Unknown HIVES Uncoded 03/03/20 18:12 Assessment & Plan Impression: Plan: change Abilify to daily' Change Lamitcal to once daily recommended titration for lamictal: Lamictal 25mg for 2 weeks, then 50mg for 2 weeks, then 75mg daily Consider increasing suboxone to 16/4 mg daily (or 8/2mg /bID) Greater than 50% of the session was spent on counseling and/or coordination of care
[2020-06-25 16:20] VITALS: BP 129/68; PULSE 85; TEMP 37.2
[2020-06-25 16:36] VITALS: BP 129/68; PULSE 85
[2020-06-25] MEDS: ARIPiprazole 10 MG TABLET PO (16:36)
[2020-06-25] MEDS: cloNIDine HCL 0.1 MG TABLET PO (16:36)
[2020-06-25] MEDS: Magnesium Hydrox/Alum Hydrox 30 ML ORAL.SUSP PO (17:16)
[2020-06-25] MEDS: traZODone HCL 50 MG TABLET PO (21:19)
[2020-06-26 06:35] VITALS: BP 126/63; PULSE 82; RESP 16; TEMP 36.6; O2SAT 98
[2020-06-26] MEDS: lamoTRIgine 25 MG TABLET PO (08:24)
[2020-06-26] MEDS: ARIPiprazole 10 MG TABLET PO (08:24)
[2020-06-26] MEDS: Gabapentin 100 MG CAPSULE 200 MG PO ×3 (08:24→21:20)
[2020-06-26] MEDS: Cholecalciferol (Vitamin D3) 25 MCG TABLET PO (08:24)
[2020-06-26] MEDS: Buprenorphine/Naloxone 8/2 mg FILM 1 FILM SUBLINGUAL (08:24)
[2020-06-26] MEDS: LORazepam 0.5 MG TABLET PO ×2 (12:15→17:38)
--- NOTE | 2020-06-26 14:32 | HO.PSYCHPN ---
Subjective Subjective Date of Service: 06/26/20 Reason For Visit: SI, Bipolar I, heroin,cocaine ,etoh dep Interim History: Pt Seen; chart reviewed and case discussed with nursing Vitals reviewed: wnl Lab reviewed: no new labs Pt reports her mood is not the best but overall better and that she's not as despondent. She says she's having trouble sleeping and asks for increase in Trazodone to 100mg. Pt denies any SI. Of note, affect noticeable brighter, no lability. Medication Compliance: Yes Mental Status Exam Mental Status Exam Narrative: Patient Appearance: Well Grooomed and Appropriate Patient Orientation: Person, Place, Time and Situation Level of Consciousness: Awake Patient Behavior: cooperative, calm, friendly Mood Description: not as despondent Affect Description: warm, smiled Ability to Follow Directions: Fair Speech Pattern: Clear Hallucinations: None Delusions: Not Present Thought Content: no SI Judgement: Fair Diagnostics Vital Signs (24Hr): Vital Signs - 24 hr 06/25/20 16:20 06/25/20 16:36 06/26/20 06:35 Temperature 98.9 F 98 F Pulse Rate 85 85 82 Respiratory Rate 16 Blood Pressure 129/68 129/68 126/63 Pulse Oximetry 98 Body Mass Index 19.7 Labs Results: 06/23/20 05:31 06/23/20 05:31 Medications Medications Current Medications Generic Name Dose Route Start Last Admin Trade Name Freq PRN Reason Stop Dose Admin Acetaminophen 650 mg 06/23/20 15:00 06/25/20 14:33 Acetaminophen 325 Mg Tablet PO 650 mg Q6H PRN Administration Headache/Pain Mild Scale (1-3) Al Hydroxide/Mg Hydroxide 30 ml 06/23/20 15:00 06/25/20 17:16 Magnesium Hydrox/Alum Hydrox 30 Ml Oral.Susp PO 30 ml Q6H PRN Administration Heartburn/Nausea Aripiprazole 10 mg 06/25/20 15:45 06/26/20 08:24 Aripiprazole 10 Mg Tablet PO 10 mg DAILY [facility] Administration Buprenorphine/Naloxone 1 film 06/24/20 10:30 06/26/20 08:24 Buprenorphine/Naloxone 8/2 Mg Film SUBLINGUAL 1 film DAILY [facility] Administration Clonidine HCl 0.1 mg 06/23/20 16:46 06/25/20 16:36 Clonidine Hcl 0.1 Mg Tablet PO 0.1 mg BID PRN Administration withdrawal Protocol Gabapentin 200 mg 06/24/20 15:00 06/26/20 08:24 Gabapentin 100 Mg Capsule PO 200 mg TID [facility]UCAS Administration Hydroxyzine HCl 25 mg 06/23/20 15:00 Hydroxyzine Hcl 25 Mg Tablet PO BEDTIME PRN Anxiety Lamotrigine 25 mg 06/25/20 15:45 06/26/20 08:24 Lamotrigine 25 Mg Tablet PO 25 mg DAILY [facility] Administration Lorazepam 0.5 mg 06/23/20 16:46 06/26/20 12:15 Lorazepam 0.5 Mg Tablet PO 0.5 mg Q4H PRN Administration anxiety, Magnesium Hydroxide 30 ml 06/23/20 15:00 Milk Of Magnesia 30 Ml Oral.Susp PO DAILY PRN Constipation Multivitamins/Minerals 1 tab 06/24/20 09:00 06/26/20 08:24 Multivitamin With Minerals Tablet PO 1 tab DAILY [facility] Administration Trazodone HCl 50 mg 06/23/20 15:00 06/25/20 21:19 Trazodone Hcl 50 Mg Tablet PO 50 mg BEDTIME PRN Administration Insomnia Vitamin D 25 mcg 06/25/20 09:00 06/26/20 08:24 Cholecalciferol (Vitamin D3) 25 Mcg Tablet PO 25 mcg DAILY [facility] Administration Allergies Allergies Allergy/AdvReac Type Severity Reaction Status Date / Time amoxicillin [Amoxicillin] Allergy Unknown HIVES Verified 06/22/20 20:19 From Augmentin Allergy Unknown HIVES Uncoded 03/03/20 18:12 Assessment & Plan Impression: bipoar disorder, substance abuse pt's mood improving; denies any SI; stable Plan: Increase trazodone to 100mg continue Abilify daily' continue Lamitcal 25mg daily for 2 weeks recommended titration for lamictal: Lamictal 25mg for 2 weeks, then 50mg for 2 weeks, then 75mg daily Consider increasing suboxone to 16/4 mg daily (or 8/2mg /bID) Greater than 50% of the session was spent on counseling and/or coordination of care
[2020-06-26 18:00] VITALS: BP 122/66; PULSE 85; TEMP 36.3
[2020-06-26] MEDS: traZODone HCL 50 MG TABLET 100 MG PO (21:29)
[2020-06-27 06:35] VITALS: BP 126/57; PULSE 80; RESP 18; TEMP 37; O2SAT 99
[2020-06-27] MEDS: Cholecalciferol (Vitamin D3) 25 MCG TABLET PO (09:09)
[2020-06-27] MEDS: Gabapentin 100 MG CAPSULE 200 MG PO ×2 (09:09→14:40)
[2020-06-27] MEDS: lamoTRIgine 25 MG TABLET PO (09:09)
[2020-06-27] MEDS: ARIPiprazole 10 MG TABLET PO (09:09)
[2020-06-27] MEDS: Buprenorphine/Naloxone 8/2 mg FILM 1 FILM SUBLINGUAL (09:10)
[2020-06-27] MEDS: LORazepam 0.5 MG TABLET PO (15:53)
[2020-06-27 15:55] VITALS: BP 122/59; PULSE 81; TEMP 36.4
[2020-06-27] MEDS: Acetaminophen 325 MG TABLET 650 MG PO (16:36)
--- NOTE | 2020-06-27 21:27 | HO.PSYCHPN ---
Subjective Subjective Date of Service: 06/27/20 Reason For Visit: SI, Bipolar I, heroin,cocaine ,etoh dep Subjective Notes: Conditional Voluntary Interim History: I am feeling better. I want to talk with you about getting tested. Reports tolerating re-titration of medications as well as withdrawal regime. Suboxone is helpful. Ready to titrate some of her regime. Medication Compliance: Yes Side effects from medications: No Attending Groups: Intermittent Review of Systems Genitourinary: Reports genital pruritis and Reports vaginal discharge Psychiatric: Reports anxiety, Reports depression, Reports hopelessness and Reports irritability Mental Status Exam Mental Status Exam Patient Appearance: Appropriate Patient Orientation: Person, Place, Time and Situation Level of Consciousness: Appropriate Patient Behavior: Appropriate Mood Description: Depressed Affect Description: Blunted Patient Cognition Impaired: No Ability to Follow Directions: Good Speech Pattern: Spontaneous Speech Memory Description: Intact Hallucinations: None Delusions: Not Present Thought Process: Intact Thought Content: positive for Intact Depressive Symptoms: Increased Anxiety, Increased Irritability, Feelings of Worthlessness, Hopelessness, Unhappiness, Increased Fatigue, Low Self Esteem, Loss of Energy and Difficulty Concentrating Judgement: Fair Diagnostics Vital Signs (24Hr): Vital Signs - 24 hr 06/27/20 06:35 06/27/20 15:55 Temperature 98.6 F 97.6 F Pulse Rate 80 81 Respiratory Rate 18 Blood Pressure 126/57 L 122/59 L Pulse Oximetry 99 Body Mass Index 19.7 Labs Results: 06/23/20 05:31 06/23/20 05:31 Medications Medications Current Medications Generic Name Dose Route Start Last Admin Trade Name Freq PRN Reason Stop Dose Admin Acetaminophen 650 mg 06/23/20 15:00 06/27/20 16:36 Acetaminophen 325 Mg Tablet PO 650 mg Q6H PRN Administration Headache/Pain Mild Scale (1-3) Al Hydroxide/Mg Hydroxide 30 ml 06/23/20 15:00 06/25/20 17:16 Magnesium Hydrox/Alum Hydrox 30 Ml Oral.Susp PO 30 ml Q6H PRN Administration Heartburn/Nausea Aripiprazole 10 mg 06/25/20 15:45 06/27/20 09:09 Aripiprazole 10 Mg Tablet PO 10 mg DAILY [facility] Administration Buprenorphine/Naloxone 1 film 06/24/20 10:30 06/27/20 09:10 Buprenorphine/Naloxone 8/2 Mg Film SUBLINGUAL 1 film DAILY [facility] Administration Clonidine HCl 0.1 mg 06/23/20 16:46 06/25/20 16:36 Clonidine Hcl 0.1 Mg Tablet PO 0.1 mg BID PRN Administration withdrawal Protocol Gabapentin 400 mg 06/27/20 21:00 Gabapentin 400 Mg Capsule PO TID LUCAS Hydroxyzine HCl 25 mg 06/23/20 15:00 Hydroxyzine Hcl 25 Mg Tablet PO BEDTIME PRN Anxiety Ibuprofen 400 mg 06/27/20 19:34 Ibuprofen 400 Mg Tablet PO Q6H PRN Pain, Mild (Pain Scale 1-3) Lamotrigine 25 mg 06/25/20 15:45 06/27/20 09:09 Lamotrigine 25 Mg Tablet PO 25 mg DAILY [facility] Administration Lorazepam 0.5 mg 06/23/20 16:46 06/27/20 15:53 Lorazepam 0.5 Mg Tablet PO 0.5 mg Q4H PRN Administration anxiety, Magnesium Hydroxide 30 ml 06/23/20 15:00 Milk Of Magnesia 30 Ml Oral.Susp PO DAILY PRN Constipation Multivitamins/Minerals 1 tab 06/24/20 09:00 06/27/20 09:09 Multivitamin With Minerals Tablet PO 1 tab DAILY [facility] Administration Trazodone HCl 100 mg 06/26/20 14:39 06/26/20 21:29 Trazodone Hcl 50 Mg Tablet PO 100 mg BEDTIME PRN Administration Insomnia Vitamin D 25 mcg 06/25/20 09:00 06/27/20 09:09 Cholecalciferol (Vitamin D3) 25 Mcg Tablet PO 25 mcg DAILY [facility] Administration Allergies Allergies Allergy/AdvReac Type Severity Reaction Status Date / Time amoxicillin [Amoxicillin] Allergy Unknown HIVES Verified 06/22/20 20:19 From Augmentin Allergy Unknown HIVES Uncoded 03/03/20 18:12 Assessment & Plan Assessment & Plan (1) Bipolar 1 disorder: Status: Acute Code(s): F31.9 - Bipolar disorder, unspecified Assessment and Plan: -Increase Gabapentin to 400 mg tid. -Continue Lamictal, Abilify, Trazodone (2) Opioid dependence: Status: Acute Code(s): F11.20 - Opioid dependence, uncomplicated Assessment and Plan: -Continue Suboxone (3) Cocaine dependence: Status: Acute Code(s): F14.20 - Cocaine dependence, uncomplicated (4) Vaginal discharge: Status: Acute Code(s): N89.8 - Other specified noninflammatory disorders of vagina Assessment and Plan: -HIV, RPR, STD panel via blood, urine, self-culture Greater than 50% of the session was spent on counseling and/or coordination of care Patient educated on: diagnosis, medication risk/benefits, substance abuse and therapeutic strategies Informed Consent: further education needed Reason for contiued inpatient stay Substantial Risk for: harm to self, inability to function and rapid decompensation
[2020-06-27] MEDS: traZODone HCL 50 MG TABLET 100 MG PO (21:55)
[2020-06-27] MEDS: Gabapentin 400 MG CAPSULE PO (21:56)
[2020-06-28 06:25] VITALS: BP 110/57; PULSE 81; RESP 18; TEMP 36.6; O2SAT 98
[2020-06-28] MEDS: ARIPiprazole 10 MG TABLET PO (09:18)
[2020-06-28] MEDS: Gabapentin 400 MG CAPSULE PO ×3 (09:18→20:30)
[2020-06-28] MEDS: lamoTRIgine 25 MG TABLET PO (09:18)
[2020-06-28] MEDS: Cholecalciferol (Vitamin D3) 25 MCG TABLET PO (09:19)
[2020-06-28] MEDS: Buprenorphine/Naloxone 8/2 mg FILM 1 FILM SUBLINGUAL (09:19)
--- NOTE | 2020-06-28 16:02 | P.PNPSI_ITS ---
Subjective Subjective Date of Service: 06/29/20 Reason For Visit: SI, Bipolar I, heroin,cocaine ,etoh dep Subjective Notes: Conditional Voluntary Interim History: Labs pending. Reports feeling improved. Tolerating medication re-titration. Hoping for residential level of care. Reports [facility]. Medication Compliance: Yes Side effects from medications: No Attending Groups: Intermittent Review of Systems Genitourinary: Reports vaginal discharge (cultures pending) Psychiatric: Reports anxiety, Reports depression, Reports hopelessness, Reports irritability and Reports mood swings Mental Status Exam Mental Status Exam Patient Appearance: Appropriate Patient Orientation: Person, Place, Time and Situation Level of Consciousness: Alert Patient Behavior: Appropriate Mood Description: Calm Affect Description: Flat Patient Cognition Impaired: No Ability to Follow Directions: Good Speech Pattern: Spontaneous Speech Memory Description: Intact Hallucinations: None Delusions: Not Present Thought Process: Intact Thought Content: positive for Intact Depressive Symptoms: Increased Anxiety and Increased Irritability Diagnostics Vital Signs (24Hr): Vital Signs - 24 hr 06/28/20 06:25 Temperature 97.9 F Pulse Rate 81 Respiratory Rate 18 Blood Pressure 110/57 L Pulse Oximetry 98 Body Mass Index 19.7 Labs Results: 06/23/20 05:31 06/23/20 05:31 Medications Medications Current Medications Generic Name Dose Route Start Last Admin Trade Name Johnsonq PRN Reason Stop Dose Admin Acetaminophen 650 mg 06/23/20 15:00 06/27/20 16:36 Acetaminophen 325 Mg Tablet PO 650 mg Q6H PRN Administration Headache/Pain Mild Scale (1-3) Al Hydroxide/Mg Hydroxide 30 ml 06/23/20 15:00 06/25/20 17:16 Magnesium Hydrox/Alum Hydrox 30 Ml Oral.Susp PO 30 ml Q6H PRN Administration Heartburn/Nausea Aripiprazole 10 mg 06/25/20 15:45 06/28/20 09:18 Aripiprazole 10 Mg Tablet PO 10 mg DAILY LUCAS Administration Buprenorphine/Naloxone 1 film 06/24/20 10:30 06/28/20 09:19 Buprenorphine/Naloxone 8/2 Mg Film SUBLINGUAL 1 film DAILY LUCAS Administration Clonidine HCl 0.1 mg 06/23/20 16:46 06/25/20 16:36 Clonidine Hcl 0.1 Mg Tablet PO 0.1 mg BID PRN Administration withdrawal Protocol Gabapentin 400 mg 06/27/20 21:00 06/28/20 14:58 Gabapentin 400 Mg Capsule PO 400 mg TID LUCAS Administration Hydroxyzine HCl 25 mg 06/23/20 15:00 Hydroxyzine Hcl 25 Mg Tablet PO BEDTIME PRN Anxiety Ibuprofen 400 mg 06/27/20 19:34 Ibuprofen 400 Mg Tablet PO Q6H PRN Pain, Mild (Pain Scale 1-3) Lamotrigine 25 mg 06/25/20 15:45 06/28/20 09:18 Lamotrigine 25 Mg Tablet PO 25 mg DAILY LUCAS Administration Lorazepam 0.5 mg 06/23/20 16:46 06/27/20 15:53 Lorazepam 0.5 Mg Tablet PO 0.5 mg Q4H PRN Administration anxiety, Magnesium Hydroxide 30 ml 06/23/20 15:00 Milk Of Magnesia 30 Ml Oral.Susp PO DAILY PRN Constipation Multivitamins/Minerals 1 tab 06/24/20 09:00 06/28/20 09:18 Multivitamin With Minerals Tablet PO 1 tab DAILY LUCAS Administration Trazodone HCl 100 mg 06/26/20 14:39 06/27/20 21:55 Trazodone Hcl 50 Mg Tablet PO 100 mg BEDTIME PRN Administration Insomnia Vitamin D 25 mcg 06/25/20 09:00 06/28/20 09:19 Cholecalciferol (Vitamin D3) 25 Mcg Tablet PO 25 mcg DAILY LUCAS Administration Allergies Allergies Allergy/AdvReac Type Severity Reaction Status Date / Time amoxicillin [Amoxicillin] Allergy Unknown HIVES Verified 06/22/20 20:19 From Augmentin Allergy Unknown HIVES Uncoded 03/03/20 18:12 Assessment & Plan Assessment & Plan (1) Bipolar 1 disorder: Status: Acute Code(s): F31.9 - Bipolar disorder, unspecified Assessment and Plan: Tolerating titration. Continue current regime (2) Opioid dependence: Status: Acute Code(s): F11.20 - Opioid dependence, uncomplicated Assessment and Plan: Pt hopes to be admitted to [facility] then to a longer term program (she reports Erin has been helpful in the past.) (3) Cocaine dependence: Status: Acute Code(s): F14.20 - Cocaine dependence, uncomplicated Greater than 50% of the session was spent on counseling and/or coordination of care
[2020-06-28] MEDS: Ibuprofen 400 MG TABLET PO (16:22)
[2020-06-28 16:42] VITALS: BP 130/61; PULSE 76; TEMP 35.7; O2SAT 96
[2020-06-28] MEDS: LORazepam 0.5 MG TABLET PO (17:45)
[2020-06-28 18:00] VITALS: BP 130/61; PULSE 76; TEMP 35.7
[2020-06-28 19:45] VITALS: BP 117/60; PULSE 77
[2020-06-28] MEDS: cloNIDine HCL 0.1 MG TABLET PO (19:45)
[2020-06-28] MEDS: traZODone HCL 50 MG TABLET 100 MG PO (20:42)
[2020-06-29 06:15] VITALS: BP 104/54; PULSE 74; RESP 18; TEMP 36.8; O2SAT 99
[2020-06-29] MEDS: lamoTRIgine 25 MG TABLET PO (09:16)
[2020-06-29] MEDS: Gabapentin 400 MG CAPSULE PO (09:16)
[2020-06-29] MEDS: ARIPiprazole 10 MG TABLET PO (09:17)
[2020-06-29] MEDS: Cholecalciferol (Vitamin D3) 25 MCG TABLET PO (09:17)
[2020-06-29] MEDS: Buprenorphine/Naloxone 8/2 mg FILM 1 FILM SUBLINGUAL (09:17)
[2020-06-29] MEDS: Ibuprofen 400 MG TABLET PO ×2 (10:06→18:00)
[2020-06-29] MEDS: Gabapentin 300 MG CAPSULE 600 MG PO ×2 (14:06→21:01)
--- NOTE | 2020-06-29 15:57 | P.PNPSI_ITS ---
Subjective Subjective Date of Service: 06/29/20 Reason For Visit: SI, Bipolar I, heroin,cocaine ,etoh dep Subjective Notes: Conditional Voluntary Interim History: Pt reports that she feels some harleen today. Review of regime and titration. Discussed adding a conservative dose of [place]if[place]ius to assist in mood stabilization during Lamictal titration. Medication Compliance: Yes Side effects from medications: No Attending Groups: Intermittent Review of Systems Genitourinary: Reports vaginal discharge Psychiatric: Reports irritability and Reports mood swings Mental Status Exam Mental Status Exam Patient Appearance: Appropriate Patient Orientation: Person, Place, Time and Situation Level of Consciousness: Alert Patient Behavior: Appropriate and Anxious Mood Description: Euphoric (mild) Affect Description: Constricted Patient Cognition Impaired: No Ability to Follow Directions: Good Speech Pattern: Spontaneous Speech Memory Description: Intact Hallucinations: None Delusions: Not Present Thought Process: Intact Thought Content: positive for Intact Depressive Symptoms: Increased Anxiety Abnormal Motor Activity Signs and Symptoms: Restlessness Judgement: Fair Diagnostics Vital Signs (24Hr): Vital Signs - 24 hr 06/28/20 16:42 06/28/20 18:00 06/28/20 19:45 Temperature 96.3 F L 96.3 F L Pulse Rate 76 76 77 Respiratory Rate Blood Pressure 130/61 130/61 117/60 Pulse Oximetry 96 06/29/20 06:15 Temperature 98.2 F Pulse Rate 74 Respiratory Rate 18 Blood Pressure 104/54 L Pulse Oximetry 99 Body Mass Index 19.7 Labs Results: 06/23/20 05:31 06/23/20 05:31 Medications Medications Current Medications Generic Name Dose Route Start Last Admin Trade Name Freq PRN Reason Stop Dose Admin Acetaminophen 650 mg 06/23/20 15:00 06/27/20 16:36 Acetaminophen 325 Mg Tablet PO 650 mg Q6H PRN Administration Headache/Pain Mild Scale (1-3) Al Hydroxide/Mg Hydroxide 30 ml 06/23/20 15:00 06/25/20 17:16 Magnesium Hydrox/Alum Hydrox 30 Ml Oral.Susp PO 30 ml Q6H PRN Administration Heartburn/Nausea Aripiprazole 20 mg 06/30/20 09:00 Aripiprazole 20 Mg Tablet PO DAILY LUCAS Buprenorphine/Naloxone 1 film 06/24/20 10:30 06/29/20 09:17 Buprenorphine/Naloxone 8/2 Mg Film SUBLINGUAL 1 film DAILY LUCAS Administration Clonidine HCl 0.1 mg 06/23/20 16:46 06/28/20 19:45 Clonidine Hcl 0.1 Mg Tablet PO 0.1 mg BID PRN Administration withdrawal Protocol Gabapentin 600 mg 06/29/20 15:00 06/29/20 14:06 Gabapentin 300 Mg Capsule PO 600 mg TID LUCAS Administration Hydroxyzine HCl 25 mg 06/23/20 15:00 Hydroxyzine Hcl 25 Mg Tablet PO BEDTIME PRN Anxiety Ibuprofen 400 mg 06/27/20 19:34 06/29/20 10:06 Ibuprofen 400 Mg Tablet PO 400 mg Q6H PRN Administration Pain, Mild (Pain Scale 1-3) Lamotrigine 25 mg 06/25/20 15:45 06/29/20 09:16 Lamotrigine 25 Mg Tablet PO 25 mg DAILY LUCAS Administration [facility] Bonifacius Carbonate 450 mg 06/29/20 21:00 [facility] Bonif[place]ius Carbonate Er 450 Mg Tablet.Er PO BEDTIME LUCAS Lorazepam 0.5 mg 06/28/20 17:07 06/28/20 17:45 Lorazepam 0.5 Mg Tablet PO 0.5 mg BID PRN Administration anxiety Magnesium Hydroxide 30 ml 06/23/20 15:00 Milk Of Magnesia 30 Ml Oral.Susp PO DAILY PRN Constipation Multivitamins/Minerals 1 tab 06/24/20 09:00 06/29/20 09:17 Multivitamin With Minerals Tablet PO 1 tab DAILY LUCAS Administration Trazodone HCl 100 mg 06/26/20 14:39 06/28/20 20:42 Trazodone Hcl 50 Mg Tablet PO 100 mg BEDTIME PRN Administration Insomnia Vitamin D 25 mcg 06/25/20 09:00 06/29/20 09:17 Cholecalciferol (Vitamin D3) 25 Mcg Tablet PO 25 mcg DAILY LUCAS Administration Allergies Allergies Allergy/AdvReac Type Severity Reaction Status Date / Time amoxicillin [Amoxicillin] Allergy Unknown HIVES Verified 06/22/20 20:19 From Augmentin Allergy Unknown HIVES Uncoded 03/03/20 18:12 Assessment & Plan Assessment & Plan (1) Cocaine dependence: Status: Acute Code(s): F14.20 - Cocaine dependence, uncomplicated (2) Opioid dependence: Status: Acute Code(s): F11.20 - Opioid dependence, uncomplicated Assessment and Plan: -Pt looking for CSS and longer term addiction treatment post discharge (3) Bipolar 1 disorder: Status: Acute Code(s): F31.9 - Bipolar disorder, unspecified Assessment and Plan: Reports breakthrough symptoms-will increase Abilify to 20 mg daily, begin [facility] Bonifacius ER 450 mg hs and increase Gabapentin to 600 tid Greater than 50% of the session was spent on counseling and/or coordination of care Patient educated on: medication risk/benefits and therapeutic strategies Informed Consent: understands and further education needed
[2020-06-29 16:59] VITALS: BP 104/53; PULSE 75; TEMP 35.9
[2020-06-29 18:00] VITALS: BP 102/60; PULSE 88
[2020-06-29] MEDS: cloNIDine HCL 0.1 MG TABLET PO (18:00)
[2020-06-29] MEDS: Lithium Carbonate ER 450 MG TABLET.ER PO (21:02)
[2020-06-29] MEDS: traZODone HCL 50 MG TABLET 100 MG PO (21:02)
[2020-06-30 06:35] VITALS: BP 98/53; PULSE 68; RESP 16; TEMP 36.8; O2SAT 98
[2020-06-30] MEDS: Buprenorphine/Naloxone 8/2 mg FILM 1 FILM SUBLINGUAL (09:44)
[2020-06-30] MEDS: Gabapentin 300 MG CAPSULE 600 MG PO (09:44)
[2020-06-30] MEDS: Cholecalciferol (Vitamin D3) 25 MCG TABLET PO (09:44)
[2020-06-30] MEDS: ARIPiprazole 20 MG TABLET PO (09:44)
[2020-06-30] MEDS: Ibuprofen 400 MG TABLET PO (09:44)
[2020-06-30] MEDS: lamoTRIgine 25 MG TABLET PO (09:44)
--- NOTE | 2020-06-30 11:11 | PC.NURSE ---
Pt is being discharged on 06/30/20 at noon. Pt reports no SI/HI. She denies auditory and/or visual hallucinations. Pt is less labile and anxious than when she arrived on the unit. Pt is aware and ready for discharge to her program. She does not currently have a PCP and will need to set one up. Pt denies depression. She says she has not had the urge to use opioids, however, she does have dreams about them.
--- NOTE | 2020-06-30 17:56 | PM.PSYDC ---
DS: Providers Provider Date of Service: 06/30/20 Date of admission: 06/23/20 14:56 Date of discharge: 06/30/20 Primary care physician: Unknown Physician Admitting clinician: Leny Guardado Attending physician on admission: Daniel Medley Consults: 06/27/20 10:26 Addiction Medicine Routine Consulting Provider: Rufina Bernard Reason for consultation: opiate use Has provider been notified: No Attending physician on discharge: Daniel Medley Discharging clinician: Leny Guardado DS: Diagnosis Discharge Diagnosis (1) Cocaine dependence: Status: Acute (2) Opioid dependence: Status: Acute (3) Bipolar 1 disorder: Status: Acute Problem details: Pt presented to [facility] with SI and a plan to overdose, stating this was the most intense the SI had ever been. This is in context of relapse of IV cocaine and heroin. Pt reported being homeless, stopping psychotropic medication regime which had been stabilized at [facility] in May 2020 (Abilify, Gabapentin, Lamictal, Trazodone) DS: Medications Discharge Medications Home Medications: Previous Rx's Medication Instructions Recorded aripiprazole [Abilify] 20 mg PO DAILY #30 tab 06/30/20 buprenorphine-naloxone 1 film BUCCAL DAILY #5 packet 06/30/20 cholecalciferol (vitamin D3) 25 mcg PO DAILY #30 tab 06/30/20 gabapentin 600 mg PO TID #90 cap 06/30/20 lamotrigine 25 mg PO DAILY #30 tab 06/30/20 lithium carbonate 450 mg PO BEDTIME #30 tab 06/30/20 multivitamin,tx-minerals [Vitamins 1 tab PO DAILY #30 tab 06/30/20 and Minerals] Discharge Plan Discharge Anticipated Discharge Date/Time: 06/30/20 01:00 Patient Disposition: Xfer Inpatient Rehab Fac Referrals: Physician,Unknown [Primary Care Provider] - 2 days Discharge Medications: New lithium carbonate 450 mg Tablet Extended Release 450 mg PO BEDTIME Qty: 30 RF: 0 lamotrigine 25 mg Tablet 25 mg PO DAILY Qty: 30 RF: 0 gabapentin 300 mg Capsule 600 mg PO TID Qty: 90 RF: 0 Vitamins and Minerals Tablet 1 tab PO DAILY Qty: 30 RF: 0 aripiprazole [Abilify] 20 mg Tablet 20 mg PO DAILY Qty: 30 RF: 0 cholecalciferol (vitamin D3) 25 mcg (1,000 unit) Tablet 25 mcg PO DAILY Qty: 30 RF: 0 buprenorphine-naloxone 8-2 mg film 1 film buccal DAILY Qty: 5 RF: 0 Discharge Orders: Discharge Order (Routine); Ordered 06/30/20 Ordered By: Leny Guardado Diet: advance to usual diet Activity on Discharge: As tolerated Discharge Date/Time: 06/30/20 12:05 Print Language: Moroccan Visit Report Forms: Patient Portal Discharge page Care Plan Goals: mood stability Health Concerns: Follow up with primary care for symptoms of vaginal discharge. Plan of Treatment: Transfer to [facility] Follow your treatment plan Follow up with therapy and medication appointments Consider longer term residential care when you have completed the [facility] Follow up with labs as we just started the [place]. Mental Status Exam Mental Status Exam Patient Appearance: Appropriate Patient Orientation: Person, Place, Time and Situation Level of Consciousness: Alert Patient Behavior: Appropriate Mood Description: Appropriate and Blunted Affect Description: Appropriate and Blunted Patient Cognition Impaired: No Ability to Follow Directions: Good Speech Pattern: Spontaneous Speech Memory Description: Intact Hallucinations: None Delusions: Not Present Thought Process: Intact Thought Content: positive for Intact Judgement: Good Data Data Completed and Pending Completed studies during hospitalization [Text1]: 06/23/20 06/23/20 18:50 18:50 Vitamin B12 467 25-OH Vitamin D Total 27.5 Folate 10.8 TSH 0.27 L Free T4 1.04 DS: Summary Hospital Course Hospital Course: Pt was admitted on conditional voluntary. She re-established medication regime with the addition of [place] to assist with SI managment and to augment Lamictal titration. She worked with the milieu team to stabilize and with social service to obtain admission to [facility]. Time spent discussing smoking cessation with patient: 3 to 10 minutes Status at Discharge Cognitive/behavioral status at discharge: alert, oriented to person, place, time and situation Functional status at discharge: independent ambulation Overall status at discharge: patient is progressing back to baseline Time Spent with Patient Time attestation: Total time spent providing and/or coordinating discharge services: 30 Time spent: Less than 30 minutes
== END 2020-06-30 12:05 | DRG 753 ==
LOC: HO.ED 22:58 → HO.PM5 06-23 15:05
PROVIDERS: Clinical Nurse Specialist Psychiatric/Mental Health, Adult; Admitting Provider Psychiatry & Neurology Psychiatry; Emergency Provider Student in an Organized Health Care Education/Training Program; Visit Provider Psychiatry & Neurology Psychiatry
DX: F31.9 Bipolar disorder, unspecified (principal); R45.851 Suicidal ideations; F11.20 Opioid dependence, uncomplicated; N89.8 Other specified noninflammatory disorders of vagina; F14.20 Cocaine dependence, uncomplicated; Z20.828 Contact with and (suspected) exposure to other viral communicable diseases; Z88.0 Allergy status to penicillin; Z79.899 Other long term (current) drug therapy
CPT/HCPCS: 36415; 80053; 80307; 80320; 81003; 81025; 82306; 82607; 82746; 83735; 84439; 84443; 85025; 87635; 90792; 93005; 99231; 99232; 99284; J0573; J0574

== ENCOUNTER 2020-07-03 14:53 | Emergency (ER) | payer OTHER, SELFPAY ==
--- NOTE | 2020-07-03 17:35 | PC.NURSE ---
CALLED PATIENT NO RESPONSE.
== END 2020-07-03 18:10 | disposition left against medical advice (07) ==
PROVIDERS: Emergency Provider Emergency Medicine
DX: Z04.9 Encounter for examination and observation for unspecified reason (principal)

== ENCOUNTER 2020-07-20 18:34 | Inpatient (IN) | payer MEDICAID, SELFPAY ==
[2020-07-20 18:38] VITALS: BP 207/168; PULSE 91; RESP 24; TEMP 36.5; O2SAT 99; BMI 19.4
--- NOTE | 2020-07-20 18:58 | ED.GENADULT ---
HPI - General Adult General Chief complaint: Overdose Stated complaint: DRUG USE Time Seen by Provider: 07/20/20 18:54 History of Present Illness HPI narrative: 30-year-old female who was brought to the emergency department by ambulance for evaluation of altered mental status. Report came from EMS. Apparently bystanders called 911. One bystander reported that the patient stepped out of a car and then the car drove away. The patient then lie down in the road. She was wearing a winter jacket. When the paramedics arrived on the scene, she admitted to doing a speedball which included heroin and cocaine. She injected it into her left neck. She states that she uses heroin daily in usually injected into her left neck. On presentation to the emergency department the patient appears to be very agitated. She has uncontrolled movement of her arms and legs and is spitting up saliva. She states that she needs intranasal Narcan to reverse the drugs that she received. Related Data Previous Rx's Medication Instructions Recorded aripiprazole [Abilify] 20 mg PO DAILY #30 tab 06/30/20 buprenorphine-naloxone 1 film BUCCAL DAILY #5 packet 06/30/20 cholecalciferol (vitamin D3) 25 mcg PO DAILY #30 tab 06/30/20 gabapentin 600 mg PO TID #90 cap 06/30/20 lamotrigine 25 mg PO DAILY #30 tab 06/30/20 lithium carbonate 450 mg PO BEDTIME #30 tab 06/30/20 multivitamin,tx-minerals [Vitamins 1 tab PO DAILY #30 tab 06/30/20 and Minerals] Allergies Allergy/AdvReac Type Severity Reaction Status Date / Time amoxicillin [Amoxicillin] Allergy Unknown HIVES Verified 06/22/20 20:19 From Augmentin Allergy Unknown HIVES Uncoded 03/03/20 18:12 [facility] Past Medical History Medical History (Updated 07/20/20 @ 23:28 by Nadeem Mayfield MD) Bipolar 1 disorder Cocaine dependence Interstitial cystitis Opioid dependence Pulmonary embolism Vaginal discharge Surgical History H/O adenoidectomy Hx of tonsillectomy Social History Social History Household Members: None Housing: Homeless Smoking Status: Never smoker Substance Use Type: Crack/Cocaine and Heroin Advance Directives: No Advance Directives Information Provided: Yes service: No Sexual orientation: Straight/Heterosexual Physical Exam Vital Signs: Vital Signs: Last Vital Signs Temp 97.7 F 07/20/20 18:38 Pulse 91 07/20/20 18:38 Resp 24 H 07/20/20 18:38 BP 207/168 H 07/20/20 18:38 Pulse Ox 99 07/20/20 18:38 Body Mass Index 19.4 Course Course Course Narrative: 30-year-old female who was brought to the emergency department by EMS after being found in the street, patient admits to [place] ball in IV cocaine and heroin. On presentation, the patient appeared to be having an adverse reaction to the drugs that she took, she appeared to either have dystonia or akathisia. The patient requested Narcan therefore she was given intranasal Narcan 4 mg with no change in her behavior. She was treated with Benadryl 50 mg IM and Ativan 2 mg IM with improvement of her symptoms. She was observed in the emergency department for least 4 hours, during which time she had no evidence increased somnolence or apnea. The patient was discharged home with verbal and printed instructions. The patient offered crisis counseling for her heroin and cocaine use disorder and she was also offered intranasal Narcan dispense pack but she refused and states that she just wants to be discharged home. Discharge Plan Discharge Clinical Impression: Heroin abuse, Cocaine abuse Adverse drug reaction Qualifiers: Encounter type: initial encounter Qualified Code(s): T50.905A - Adverse effect of unspecified drugs, medicaments and biological substances, initial encounter Patient Disposition: Home, Self-Care Instructions: Cocaine Abuse (ED), Opioid Use Disorder (ED) Additional Instructions: Your presentation is consistent with an adverse drug reaction to the drugs that you injected today. We treated you with Benadryl intramuscularly and Ativan intramuscularly. Follow-up with your doctor in 2 days. Please return to the emergency department if your symptoms get worse or if you develop any symptoms that are concerning to you. Prescriptions: No Action lithium carbonate 450 mg Tablet Extended Release 450 mg PO BEDTIME Qty: 30 RF: 0 lamotrigine 25 mg Tablet 25 mg PO DAILY Qty: 30 RF: 0 gabapentin 300 mg Capsule 600 mg PO TID Qty: 90 RF: 0 Vitamins and Minerals Tablet 1 tab PO DAILY Qty: 30 RF: 0 aripiprazole [Abilify] 20 mg Tablet 20 mg PO DAILY Qty: 30 RF: 0 cholecalciferol (vitamin D3) 25 mcg (1,000 unit) Tablet 25 mcg PO DAILY Qty: 30 RF: 0 buprenorphine-naloxone 8-2 mg film 1 film buccal DAILY Qty: 5 RF: 0
[2020-07-20] MEDS: LORazepam 2 MG/ML VIAL IM (19:10)
[2020-07-20] MEDS: Naloxone HCl Nasal 4 MG SPRAY NOSTRILALT (19:10)
[2020-07-20] MEDS: diphenhydrAMINE HCL 50 MG/ML VIAL IM (19:10)
[2020-07-20 20:00] VITALS: BP 170/74; PULSE 90; RESP 24
--- NOTE | 2020-07-20 20:50 | PC.NURSE ---
PT CALM BUT STILL TWITCHING, THRASHING ABOUT STRETCHER. NOT TO THE EXTREME UPON ARRIVAL BUT STILL PRESENT. PT DOES RESPOND WHEN AROUSED BY VERBAL STIMULI & IS A/O X 2. PER MD NO IV OR BLOOD DRAW AT THIS TIME. WILL CONT' TO MONITOR PT, W/SITTER @ BEDSIDE FOR HER SAFETY.
[2020-07-20 22:00] VITALS: O2SAT 100
[2020-07-21] VITALS (7 sets, daily range): BP systolic 101–144; BP diastolic 56–82; PULSE 66–101; RESP 16–20; TEMP 36.4–36.8; O2SAT 97–100
--- NOTE | 2020-07-21 01:36 | MHC.CARE ---
Attempted to meet with pt, who is asleep and does not respond to verbal prompts. Plan w/ Dr. Mayfield for CARE Team/ recovery team follow up in AM to discuss substance use resources.
--- NOTE | 2020-07-21 07:13 | PC.NURSE ---
PT SLEEPING. BKFST TRAY PROVIDED. AWAITING CARE TEAM
--- NOTE | 2020-07-21 09:30 | PC.NURSE ---
CARE TEAM BRENDA IN TO SEE PT. WANTS [facility] CONSULT NOW
--- NOTE | 2020-07-21 09:37 | MHC.RECOVSUP ---
Recovery Support note: Patient is a 30 year old Citizen Of [place] speaking female who presented to [facility] via EMS after an overdose. When patient initially arrived to the ED, she reported she was not interested in treatment. This typewriter operator automatic met with patient this morning to discuss recovery supports. Patient reported to this typewriter operator automatic that she wants to go inpatient and that she needs dual diagnosis treatment. Patient reports she is suicidal and has been having thoughts to harm herself. Patient reports that the recent overdose was accidental. Patient reports she would like to get psychiatric help and return to . This typewriter operator automatic discussed case with CARE Team and ED provider and recommended a [facility] crisis evaluation. This typewriter operator automatic available as needed.
--- NOTE | 2020-07-21 09:54 | PC.NURSE ---
PT NOW STATES SHE'S SI.
[2020-07-21] MEDS: LORazepam 1 MG TABLET PO (11:12)
--- NOTE | 2020-07-21 11:30 | PC.NURSE ---
UP TO BR. URINE OBTAINED. PT REQUESTING FOOD. CRACKERS/JELLO GIVEN UNTIL LUNCH
[2020-07-21 11:32] LABS: Glucose Urine UA NEG (NEG); Leukocyte Esterase Urine NEG (NEG); Nitrite Urine NEG (NEG); PH 7.5 (5.0-8.0); Specific Gravity - Urine 1.015 (1.005-1.025); Urine Blood NEG (NEG); Urine Ketones NEG (NEG); Urine Protein NEG (NEG-TRACE)
[2020-07-21 11:34] LABS: Appearance Urine HAZY; Color Urine YELLOW; UPreg QC Valid YES; Urine Pregnancy NEGATIVE (NEGATIVE)
[2020-07-21 12:04] LABS: Amphetamine Screen Urine Not Detected (Not Detect); Barbiturates, Urine Not Detected (Not Detect); Benzodiazepines Screen Urine Not Detected (Not Detect); Cannabinoid Screen Urine Not Detected (Not Detect); Cocaine Screen Urine POSITIVE (Not Detect); Opiate Screen Urine POSITIVE (Not Detect); Phencyclidine Screen Urine Not Detected (Not Detect)
--- NOTE | 2020-07-21 12:39 | PC.NURSE ---
PT GIVEN LUNCH. AWAITING BHN'S ANSWER
--- NOTE | 2020-07-21 12:45 | MHC.RECOVSUP ---
? Reason for consult:Continuity of care o Current location: o Identified substance use concern: Heroin - Overdose - Withdrawal - Seeking ATS (detox) - Support ? Intervention: o ATS bed search started/completed/in process o Community resources provided o ? Plan: o Referral to [facility] o Bed search in progress to oo Patient to follow up with HF after discharge ? Additional information: PT was not very cooperative, pt. seeking detox, put pt. on list for [facility]. Waiting for assessment from [facility] to send along with HNP to [facility]. [facility] will have a bed open either late today or tomorrow morning.
--- NOTE | 2020-07-21 14:13 | MHC.RECOVSUP ---
Recovery Support note: Patient was evaluated by [facility] and [facility] is recommending EATS level of care. Patient is agreeable to this at this time. Patient information has been faxed to [facility] ( ) and to [facility] ( ). [facility] reports they do not have any beds at this time and no planned discharges. This technical publications writer will follow up with [facility] facilities to get an estimate on when a bed will be available.
[2020-07-21 15:12] LABS: COVID-19 Test Negative (Negative)
--- NOTE | 2020-07-21 16:14 | MHC.RECOVSUP ---
Recovery Support note: Patient is on wait list for an EATS bed at [facility] ([phone]) and [facility] ([phone]). Both facilities are awaiting [facility] evaluation that N will fax when completed. [facility] reports that they do not have any beds or discharges planned. [facility] reports that they do have a bed at this time. [facility] will reach out to CARE Team with additional information regarding bed.
[2020-07-21] MEDS: traZODone HCL 100 MG TABLET PO (23:10)
[2020-07-21] MEDS: LORazepam 1 MG TABLET 2 MG PO (23:56)
[2020-07-22] VITALS: BP 135/90; PULSE 100; RESP 16; O2SAT 98
--- NOTE | 2020-07-22 00:05 | PC.NURSE ---
Patient was restless, twitchy lower extremity, sneezing, COW assessed scored 10, provider notified ordered ativan 2 mg administered as ordered. Will continue to monitor.
--- NOTE | 2020-07-22 10:42 | MHC.RECOVSUP ---
Recovery Support note: Patient is a 30 year old Barbadian speaking female who presented to [facility] on 07/20/20 after an accidental overdose. Patient initially declined treatment upon arrival, however the following morning she expressed that she is interested in getting help. Patient initially reported vague SI with an interest in going to a dual diagnosis program. Patient was evaluated by [facility] on 07/21 and [facility] recommended that patient would benefit from an EATS placement and that she could remain in the emergency department on a voluntary basis as there was no safety concerns at that time. Patient was referred to EATS facilities however no bed has become available. This typewriter aligner spoke with patient on 07/22 to see if patient would be willing to go to an ATS facility. Patient reports she is feeling better now that she has had time to rest in the emergency department and she denies SI or safety concerns at this time. Patient reports withdrawal symptoms and is still interested in getting help with her substance use disorder. Patient is agreeable to going to an ATS facility and is understanding that with ATS she will not have access to psychiatry. Patient is interested in pursuing dual diagnosis treatment later on after detox, possibly on an outpatient basis. This typewriter aligner will make referrals for patient to ATS facilities. Patient has been calm and cooperative while in the emergency department.
[2020-07-22 11:13] VITALS: BP 116/65; PULSE 92; TEMP 37.3; O2SAT 98
--- NOTE | 2020-07-22 15:52 | PC.NURSE ---
Report received. Pt sleeping at current. No signs of distress, respirations even and unlabored.
--- NOTE | 2020-07-22 16:02 | MHC.RECOVSUP ---
Recovery Support note: Patient was declined from [facility] due to previous SI statements that patient has made. This loan underwriter met with patient to update her on this and patient acknowledged and is reporting SI and that she is interested in getting psychiatric treatment. This loan underwriter discussed case with CARE Team, patient's ED provider and RN. Plan is for N to re-evaluate patient during [facility] with recommendations to change patient's disposition to inpatient psych.
[2020-07-22] MEDS: LORazepam 1 MG TABLET PO (16:22)
--- NOTE | 2020-07-22 18:19 | ECG_ITS ---
Test Reason : COCAINE USE Blood Pressure : / mmHG Vent. Rate : 079 BPM Atrial Rate : 079 BPM P-R Int : 124 ms QRS Dur : 080 ms QT Int : 386 ms P-R-T Axes : 006 070 033 degrees QTc Int : 442 ms Normal sinus rhythm Normal ECG When compared with ECG of 23-JUN-2020 09:31, T wave inversion no longer evident in Anterior leads Referred By: Lizzeth Siddiqi Electronically Signed By:ALEXI GASPAR
[2020-07-22 21:12] VITALS: BP 130/74; PULSE 89; TEMP 36.3; O2SAT 100
--- NOTE | 2020-07-22 21:58 | PC.ADMIT ---
patient was recently discharged 06/30/20. patient was a referral by radha from the [facility], initially was an EATS/detox bed search but was unsuccessful in finding placement. Pt then reporting continued thoughts of hopelessness and feelings of suicide in the context of homelessness and continued drug use. denies any significant alcohol use and reports use of heroin/cocaine ''I shoot up in my neck'' pt exhibiting w/d s/s of rhinitis and goose flesh but declined hs suboxone identifying that it causes sleep disturbance. will accept clonidine. VS wnl. medications ordered per discharge medications from previous admission although at lower doses as patient did not continue medications after [facility] admission. is eating and drinking well since admission. hx interstitial cystitis and has raw area on r thumb due to picking at it area is brown and hand appears swollen. is homeless, reports she does not have providers and did not follow after discharge but willing for program after hospitalization. oriented to unit. legal cv.
[2020-07-22] MEDS: Gabapentin 300 MG CAPSULE PO (22:04)
[2020-07-22] MEDS: hydrOXYzine HCL 25 MG TABLET PO (22:04)
[2020-07-22] MEDS: Lithium Carbonate ER 450 MG TABLET.ER PO (22:05)
[2020-07-22] MEDS: traZODone HCL 50 MG TABLET PO (22:05)
[2020-07-23 06:00] VITALS: BP 126/60; PULSE 82; RESP 16; TEMP 36.7; O2SAT 100
[2020-07-23] MEDS: lamoTRIgine 25 MG TABLET PO (08:47)
[2020-07-23] MEDS: Cholecalciferol (Vitamin D3) 25 MCG TABLET PO (08:47)
[2020-07-23] MEDS: Buprenorphine/Naloxone 4/1 mg FILM 1 FILM SUBLINGUAL (08:47)
[2020-07-23] MEDS: ARIPiprazole 10 MG TABLET PO (08:47)
[2020-07-23] MEDS: Gabapentin 300 MG CAPSULE PO ×3 (08:51→21:30)
--- NOTE | 2020-07-23 17:59 | P.HPPS_ITS ---
HPI Chief Complaint: Overdose, bipolar do Sources of Information: patient interviewed, chart reviewed and crisis/core team assessment reviewed HPI Narrative: pt readmitted to [facility] after relapse and injecting cocaine and heroin into her neck and having a severe adverse reaction in ED. pt is depressed and suicidal. She is withdrawn and isolative o unit Past Psychiatric History: [facility] admission recently with d/c on 07/13/20 ON the folowing meds: lithium carbonate 450 mg Tablet Extended Release 450 mg PO BEDTIME Qty: 30 RF: 0 lamotrigine 25 mg Tablet 25 mg PO DAILY Qty: 30 RF: 0 gabapentin 300 mg Capsule 600 mg PO TID Qty: 90 RF: 0 Vitamins and Minerals Tablet 1 tab PO DAILY Qty: 30 RF: 0 aripiprazole [Abilify] 20 mg Tablet 20 mg PO DAILY Qty: 30 RF: 0 cholecalciferol (vitamin D3) 25 mcg (1,000 unit) Tablet 25 mcg PO DAILY Qty: 30 RF: 0 buprenorphine-naloxone 8-2 mg film 1 film buccal DAILY Qty: 5 RF: 0 and plan to f/u with [facility] and out pt providers. Hx of Gatitoood admission May 2020 [facility] 2015 Trials: Risperdal-effective, Lamictal-effective, Madeline-effective, Olanzapine- hx of OD Medical Evaluation Reviewed: Yes [facility] Medical History (Updated 07/20/20 @ 23:28 by Nadeem Mayfield MD) Bipolar 1 disorder Cocaine dependence Interstitial cystitis Opioid dependence Pulmonary embolism Vaginal discharge Surgical History H/O adenoidectomy Hx of tonsillectomy Family History: Bipolar Disorder Social History: Pt reports she is homeless and unemployed. Trauma History: acknowledges without specific details. Diagnostics Vital Signs (24Hr): Vital Signs - 24 hr 07/22/20 21:12 07/23/20 06:00 Temperature 97.4 F 98.1 F Pulse Rate 89 82 Respiratory Rate 16 Blood Pressure 130/74 126/60 Pulse Oximetry 100 100 Body Mass Index 19.4 Meds/Allergies Meds Home Medications Acetaminophen (Acetaminophen 325 Mg Tablet) 650 mg PO Q6H PRN PRN Reason: Headache/Pain Mild Scale (1-3) Al Hydroxide/Mg Hydroxide (Magnesium Hydrox/Alum Hydrox 30 Ml Oral.Susp) 30 ml PO Q6H PRN PRN Reason: Heartburn/Nausea Aripiprazole (Aripiprazole 10 Mg Tablet) 10 mg PO DAILY [facility] Last Admin: 07/23/20 08:47 Dose: 10 mg Documented by: Buprenorphine/Naloxone (Buprenorphine/Naloxone 4/1 Mg Film) 1 film SUBLINGUAL DAILY [facility] Last Admin: 07/23/20 08:47 Dose: 1 film Documented by: Clonidine HCl (Clonidine Hcl 0.1 Mg Tablet) 0.1 mg PO BID PRN; Protocol PRN Reason: Opiate Withdrawal Diphenhydramine HCl (Diphenhydramine Hcl 25 Mg Tablet) 50 mg PO Q6H PRN PRN Reason: Muscle Spasm/dystonia Gabapentin (Gabapentin 300 Mg Capsule) 300 mg PO TID [facility] Last Admin: 07/23/20 14:17 Dose: 300 mg Documented by: Hydroxyzine HCl (Hydroxyzine Hcl 25 Mg Tablet) 25 mg PO BEDTIME PRN PRN Reason: Anxiety Last Admin: 07/22/20 22:04 Dose: 25 mg Documented by: Lamotrigine (Lamotrigine 25 Mg Tablet) 25 mg PO DAILY [facility] Last Admin: 07/23/20 08:47 Dose: 25 mg Documented by: Madeline Carbonate ([place] Carbonate Er 450 Mg Tablet.Er) 450 mg PO BEDTIME [facility] Last Admin: 07/22/20 22:05 Dose: 450 mg Documented by: Lorazepam (Lorazepam 1 Mg Tablet) 1 mg PO Q4H PRN PRN Reason: anxiety/restlessness Magnesium Hydroxide (Milk Of Magnesia 30 Ml Oral.Susp) 30 ml PO DAILY PRN PRN Reason: Constipation Multivitamins/Minerals (Multivitamin With Minerals Tablet) 1 tab PO DAILY [facility] Last Admin: 07/23/20 08:47 Dose: 1 tab Documented by: Nicotine (Nicotine 21 Mg Patch.Td24) 21 mg TRANSDERMA DAILY [facility] Last Admin: 07/23/20 12:58 Dose: Not Given Documented by: Nicotine Polacrilex (Nicotine Polacrilex 2 Mg Gum) 4 mg BUCCAL Q2H PRN PRN Reason: Nicotine Cravings Trazodone HCl (Trazodone Hcl 50 Mg Tablet) 50 mg PO BEDTIME PRN PRN Reason: Insomnia Last Admin: 07/22/20 22:05 Dose: 50 mg Documented by: Vitamin D (Cholecalciferol (Vitamin D3) 25 Mcg Tablet) 25 mcg PO DAILY [facility] Last Admin: 07/23/20 08:47 Dose: 25 mcg Documented by: Allergies Allergies Allergy/AdvReac Type Severity Reaction Status Date / Time amoxicillin [Amoxicillin] Allergy Unknown HIVES Verified 06/22/20 20:19 From Augmentin Allergy Unknown HIVES Uncoded 03/03/20 18:12 Mental Status Exam Mental Status Exam Patient Appearance: Disheveled and Unkempt Patient Orientation: Place, Time and Situation Level of Consciousness: Drowsy and Restless Patient Behavior: Asleep, Restless, Resistive to Care, Avoidant, Distractible and Isolative Behavior Comments: irritable but attempted to be cooperative Mood Description: Withdrawn, Hostile, Labile and Sad Affect Description: Withdrawn, Anxious, Labile, Flat and Sad Patient Cognition Impaired: No Ability to Follow Directions: Fair Speech Pattern: Impoverished, Monotone, Mumbled and Long Pauses Hallucinations: None (denies) Thought Process: Distracted and Slowed Thinking Thought Content: positive for Poverty of Content Depressive Symptoms: Sleeping More Than Usual, Feelings of Worthlessness and Thoughts of /Suicide Judgement: Poor Assessment & Plan Assessment & Plan (1) Bipolar 1 disorder: Status: Acute Code(s): F31.9 - Bipolar disorder, unspecified (2) Opioid dependence: Status: Acute Code(s): F11.20 - Opioid dependence, uncomplicated (3) Cocaine dependence: Status: Acute Code(s): F14.20 - Cocaine dependence, uncomplicated (4) Adverse drug reaction: Status: Acute Qualifiers: Encounter type: initial encounter Qualified Code(s): T50.905A - Adverse effect of unspecified drugs, medicaments and biological substances, initial encounter Code(s): T50.905A - Adverse effect of unspecified drugs, medicaments and biological substances, initial encounter Assessment and Plan: CV restart medications including suboxone monitor for withdrawal 5 minute checks for safety Patient educated on: diagnosis, medication risk/benefits and therapeutic strategies Informed Consent: further education needed Reason for continued inpatient stay Substantial Risk for: harm to self and med/psych decompensation
[2020-07-23] MEDS: Lithium Carbonate ER 450 MG TABLET.ER PO (21:30)
[2020-07-23] MEDS: hydrOXYzine HCL 25 MG TABLET PO (21:35)
[2020-07-23] MEDS: traZODone HCL 50 MG TABLET PO ×2 (21:35→22:44)
[2020-07-23 21:42] VITALS: BP 114/62; PULSE 81; TEMP 36.8
[2020-07-24 06:10] VITALS: BP 125/74; PULSE 81; RESP 18; TEMP 36.9; O2SAT 99
--- NOTE | 2020-07-24 07:29 | PM.EVENT ---
Event Note Date of Service: 07/24/20 Event Note: Patient refused to be evaluated.
[2020-07-24] MEDS: Gabapentin 300 MG CAPSULE PO ×3 (08:37→20:36)
[2020-07-24] MEDS: Cholecalciferol (Vitamin D3) 25 MCG TABLET PO (08:37)
[2020-07-24] MEDS: Buprenorphine/Naloxone 4/1 mg FILM 1 FILM SUBLINGUAL ×2 (08:37→10:30)
[2020-07-24] MEDS: ARIPiprazole 10 MG TABLET PO (08:37)
[2020-07-24] MEDS: lamoTRIgine 25 MG TABLET PO (08:37)
--- NOTE | 2020-07-24 15:40 | P.PNPSI_ITS ---
Subjective Subjective Date of Service: 07/24/20 Reason For Visit: Overdose, bipolar do Subjective Notes: Conditional Voluntary Interim History: pt refused hospitalist consult for thumb infection right thumb inflamed, red, with purulent drainage irritable, with drawn, medication compliant Medication Compliance: Yes Side effects from medications: No Attending Groups: Intermittent Review of Systems Review of Systems right thumb infection Mental Status Exam Mental Status Exam Patient Appearance: Disheveled and Unkempt Patient Orientation: Place, Time and Situation Level of Consciousness: Drowsy and Restless Patient Behavior: Asleep, Restless, Resistive to Care, Avoidant, Distractible and Isolative Behavior Comments: irritable but attempted to be cooperative Mood Description: Withdrawn, Hostile, Labile and Sad Affect Description: Withdrawn, Anxious, Labile, Flat and Sad Patient Cognition Impaired: No Ability to Follow Directions: Fair Speech Pattern: Impoverished, Monotone, Mumbled and Long Pauses Thought Process: Distracted Thought Content: positive for [place] and positive for Suicidal Ideation Depressive Symptoms: Loss of Int. in Activity and Difficulty Concentrating Abnormal Motor Activity Signs and Symptoms: Restlessness Judgement: Fair Diagnostics Vital Signs (24Hr): Vital Signs - 24 hr 07/23/20 21:42 07/24/20 06:10 Temperature 98.2 F 98.5 F Pulse Rate 81 81 Respiratory Rate 18 Blood Pressure 114/62 125/74 Pulse Oximetry 99 Body Mass Index 19.4 Medications Medications Current Medications Generic Name Dose Route Start Last Admin Trade Name Freq PRN Reason Stop Dose Admin Acetaminophen 650 mg 07/22/20 20:32 Acetaminophen 325 Mg Tablet PO Q6H PRN Headache/Pain Mild Scale (1-3) Al Hydroxide/Mg Hydroxide 30 ml 07/22/20 20:32 Magnesium Hydrox/Alum Hydrox 30 Ml Oral.Susp PO Q6H PRN Heartburn/Nausea Aripiprazole 15 mg 07/25/20 09:00 Aripiprazole 15 Mg Tablet PO DAILY [facility] Buprenorphine/Naloxone 1 tab 07/25/20 09:00 Buprenorphine/Naloxone 8/2 Mg Tab.Subl SUBLINGUAL DAILY [facility] Clonidine HCl 0.1 mg 07/24/20 10:17 Clonidine Hcl 0.1 Mg Tablet PO TID PRN Opiate Withdrawal Protocol Diphenhydramine HCl 50 mg 07/22/20 21:39 Diphenhydramine Hcl 25 Mg Tablet PO Q6H PRN Muscle Spasm/dystonia Doxycycline Hyclate 100 mg 07/24/20 14:00 07/24/20 14:00 Doxycycline Hyclate 100 Mg Tablet PO 100 mg Q12H [facility] Administration Gabapentin 300 mg 07/23/20 09:00 07/24/20 14:00 Gabapentin 300 Mg Capsule PO 300 mg TID [facility] Administration Hydroxyzine HCl 25 mg 07/22/20 20:32 07/23/20 21:35 Hydroxyzine Hcl 25 Mg Tablet PO 25 mg BEDTIME PRN Administration Anxiety Lamotrigine 25 mg 07/23/20 09:00 07/24/20 08:37 Lamotrigine 25 Mg Tablet PO 25 mg DAILY [facility] Administration [place] Carbonate 450 mg 07/22/20 21:09 07/23/20 21:30 [place] Carbonate Er 450 Mg Tablet.Er PO 450 mg BEDTIME [facility] Administration Lorazepam 1 mg 07/22/20 21:39 Lorazepam 1 Mg Tablet PO Q4H PRN anxiety/restlessness Magnesium Hydroxide 30 ml 07/22/20 20:32 Milk Of Magnesia 30 Ml Oral.Susp PO DAILY PRN Constipation Multivitamins/Minerals 1 tab 07/23/20 09:00 07/24/20 08:37 Multivitamin With Minerals Tablet PO 1 tab DAILY [facility] Administration Nicotine 21 mg 07/23/20 09:00 07/24/20 10:30 Nicotine 21 Mg Patch.Td24 TRANSDERMA Not Given DAILY [facility] Nicotine Polacrilex 4 mg 07/22/20 20:32 Nicotine Polacrilex 2 Mg Gum BUCCAL Q2H PRN Nicotine Cravings Trazodone HCl 50 mg 07/22/20 20:32 07/23/20 22:44 Trazodone Hcl 50 Mg Tablet PO 50 mg BEDTIME PRN Administration Insomnia Vitamin D 25 mcg 07/23/20 09:00 07/24/20 08:37 Cholecalciferol (Vitamin D3) 25 Mcg Tablet PO 25 mcg DAILY [facility] Administration Allergies Allergies Allergy/AdvReac Type Severity Reaction Status Date / Time amoxicillin [Amoxicillin] Allergy Unknown HIVES Verified 06/22/20 20:19 From Augmentin Allergy Unknown HIVES Uncoded 03/03/20 18:12 Assessment & Plan Assessment & Plan (1) Bipolar 1 disorder: Status: Acute Code(s): F31.9 - Bipolar disorder, unspecified (2) Opioid dependence: Status: Acute Code(s): F11.20 - Opioid dependence, uncomplicated (3) Cocaine dependence: Status: Acute Code(s): F14.20 - Cocaine dependence, uncomplicated (4) Adverse drug reaction: Qualifiers: Encounter type: initial encounter Qualified Code(s): T50.905A - Adverse effect of unspecified drugs, medicaments and biological substances, initial encounter Status: Acute Code(s): T50.905A - Adverse effect of unspecified drugs, medicaments and biological substances, initial encounter (5) Infection of thumb: Status: Acute Code(s): L08.9 - Local infection of the skin and subcutaneous tissue, unspecified Assessment and Plan: CV increase suboxone to 8mg/2mg SL increase abilify monitor for withdrawal 5 minute checks for safety tiger text consultation with Dr Orona and Dr Tran regarding probable MRSA infection of right thumb started on doxycycline 100mg BID x 10 days monitor response to antibiotic and consider re-order consult when pt more amenable Greater than 50% of the session was spent on counseling and/or coordination of care Patient educated on: diagnosis, medication risk/benefits, therapeutic strategies and medical condition Informed Consent: understands and further education needed Reason for contiued inpatient stay Substantial Risk for: harm to self, inability to function and med/psych decompensation
[2020-07-24 18:00] VITALS: BP 122/59; PULSE 82; TEMP 37.1
[2020-07-24 18:04] VITALS: BP 128/62; PULSE 98
[2020-07-24] MEDS: cloNIDine HCL 0.1 MG TABLET PO (18:04)
[2020-07-24] MEDS: traZODone HCL 50 MG TABLET PO (20:36)
[2020-07-24] MEDS: hydrOXYzine HCL 25 MG TABLET PO (20:36)
[2020-07-24] MEDS: Lithium Carbonate ER 450 MG TABLET.ER PO (20:36)
[2020-07-25 01:15] VITALS: BP 124/58; PULSE 99; RESP 18; TEMP 37.1; O2SAT 98
[2020-07-25 01:18] VITALS: BP 124/58; PULSE 99
[2020-07-25] MEDS: traZODone HCL 50 MG TABLET PO ×2 (01:18→21:19)
[2020-07-25] MEDS: LORazepam 1 MG TABLET PO ×2 (01:18→20:54)
[2020-07-25] MEDS: cloNIDine HCL 0.1 MG TABLET PO (01:18)
[2020-07-25 06:05] VITALS: BP 100/59; PULSE 65; RESP 16; TEMP 36.8; O2SAT 98
[2020-07-25] MEDS: Gabapentin 300 MG CAPSULE PO ×3 (08:22→21:18)
[2020-07-25] MEDS: Buprenorphine/Naloxone 8/2 mg TAB.SUBL 1 TAB SUBLINGUAL (08:22)
[2020-07-25] MEDS: Cholecalciferol (Vitamin D3) 25 MCG TABLET PO (08:22)
[2020-07-25] MEDS: lamoTRIgine 25 MG TABLET PO (08:23)
[2020-07-25] MEDS: ARIPiprazole 15 MG TABLET PO (08:23)
--- NOTE | 2020-07-25 17:46 | P.PNPSI_ITS ---
Subjective Subjective Date of Service: 07/26/20 Reason For Visit: Overdose, bipolar do Subjective Notes: Conditional Voluntary Interim History: I was going to go to the ER to have my neck evaluated. The counselor said to me, if you use, I want you to be careful . That triggered me. 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 Discussed almost losing her life. Discussed skilled nursing residential programming which she agrees is best. Believes her mood is still not as stable as it could be, identifies current impulsive act CLERK OPERATOR. Discussed titration of regime. Reports compliance with regime CLERK OPERATOR. Medication Compliance: Yes Side effects from medications: No Attending Groups: No Review of Systems Skin/Breast: Reports swelling (R thumb) Psychiatric: Reports irritability, Reports mood swings and Reports other (lability of mood) Mental Status Exam Mental Status Exam Patient Appearance: Appropriate Patient Orientation: Person, Place, Time and Situation Level of Consciousness: Awake and Alert Patient Behavior: Cooperative Mood Description: Labile Affect Description: Labile Patient Cognition Impaired: No Ability to Follow Directions: Good Speech Pattern: Spontaneous Speech and Rambling Memory Description: Intact Hallucinations: None Delusions: Not Present Thought Process: Racing and Distracted Thought Content: positive for [place] and positive for Circumstantial Depressive Symptoms: Increased Anxiety, Diff. Making Decisions and Difficulty Concentrating Abnormal Motor Activity Signs and Symptoms: Hyperactivity Judgement: Fair Diagnostics Vital Signs (24Hr): Vital Signs - 24 hr 07/24/20 18:00 07/24/20 18:04 07/25/20 01:15 Temperature 98.8 F 98.7 F Pulse Rate 82 98 99 Respiratory Rate 18 Blood Pressure 122/59 L 128/62 124/58 L Pulse Oximetry 98 07/25/20 01:18 07/25/20 06:05 Temperature 98.2 F Pulse Rate 99 65 Respiratory Rate 16 Blood Pressure 124/58 L 100/59 L Pulse Oximetry 98 Body Mass Index 19.4 Medications Medications Current Medications Generic Name Dose Route Start Last Admin Trade Name Freq PRN Reason Stop Dose Admin Acetaminophen 650 mg 07/22/20 20:32 Acetaminophen 325 Mg Tablet PO Q6H PRN Headache/Pain Mild Scale (1-3) Al Hydroxide/Mg Hydroxide 30 ml 07/22/20 20:32 Magnesium Hydrox/Alum Hydrox 30 Ml Oral.Susp PO Q6H PRN Heartburn/Nausea Aripiprazole 15 mg 07/25/20 09:00 07/25/20 08:23 Aripiprazole 15 Mg Tablet PO 15 mg DAILY [facility] Administration Buprenorphine/Naloxone 1 tab 07/25/20 09:00 07/25/20 08:22 Buprenorphine/Naloxone 8/2 Mg Tab.Subl SUBLINGUAL 1 tab DAILY [facility] Administration Clonidine HCl 0.1 mg 07/24/20 10:17 07/25/20 01:18 Clonidine Hcl 0.1 Mg Tablet PO 0.1 mg TID PRN Administration Opiate Withdrawal Protocol Diphenhydramine HCl 50 mg 07/22/20 21:39 Diphenhydramine Hcl 25 Mg Tablet PO Q6H PRN Muscle Spasm/dystonia Doxycycline Hyclate 100 mg 07/25/20 06:00 07/25/20 06:12 Doxycycline Hyclate 100 Mg Tablet PO 100 mg Q12H [facility] Administration Gabapentin 300 mg 07/23/20 09:00 07/25/20 14:47 Gabapentin 300 Mg Capsule PO 300 mg TID [facility] Administration Hydroxyzine HCl 25 mg 07/22/20 20:32 07/24/20 20:36 Hydroxyzine Hcl 25 Mg Tablet PO 25 mg BEDTIME PRN Administration Anxiety Lamotrigine 25 mg 07/23/20 09:00 07/25/20 08:23 Lamotrigine 25 Mg Tablet PO 25 mg DAILY [facility] Administration [place] Carbonate 450 mg 07/22/20 21:09 07/24/20 20:36 [place] Carbonate Er 450 Mg Tablet.Er PO 450 mg BEDTIME [facility] Administration Lorazepam 1 mg 07/22/20 21:39 07/25/20 01:18 Lorazepam 1 Mg Tablet PO 1 mg Q4H PRN Administration anxiety/restlessness Magnesium Hydroxide 30 ml 07/22/20 20:32 Milk Of Magnesia 30 Ml Oral.Susp PO DAILY PRN Constipation Multivitamins/Minerals 1 tab 07/23/20 09:00 07/25/20 08:22 Multivitamin With Minerals Tablet PO 1 tab DAILY [facility] Administration Nicotine 21 mg 07/23/20 09:00 07/25/20 09:32 Nicotine 21 Mg Patch.Td24 TRANSDERMA Not Given DAILY [facility] Nicotine Polacrilex 4 mg 07/22/20 20:32 Nicotine Polacrilex 2 Mg Gum BUCCAL Q2H PRN Nicotine Cravings Trazodone HCl 50 mg 07/22/20 20:32 02/08/21 01:18 Trazodone Hcl 50 Mg Tablet PO 50 mg BEDTIME PRN Administration Insomnia Vitamin D 25 mcg 07/23/20 09:00 07/25/20 08:22 Cholecalciferol (Vitamin D3) 25 Mcg Tablet PO 25 mcg DAILY [facility] Administration Allergies Allergies Allergy/AdvReac Type Severity Reaction Status Date / Time amoxicillin [Amoxicillin] Allergy Unknown HIVES Verified 06/22/20 20:19 From Augmentin Allergy Unknown HIVES Uncoded 03/03/20 18:12 Assessment & Plan Assessment & Plan (1) Bipolar 1 disorder: Status: Acute Code(s): F31.9 - Bipolar disorder, unspecified Assessment and Plan: -Increase [place] to 300 mg bid -Increase Abilify to 20 mg daily (2) Opioid dependence: Status: Acute Code(s): F11.20 - Opioid dependence, uncomplicated (3) Cocaine dependence: Status: Acute Code(s): F14.20 - Cocaine dependence, uncomplicated (4) Infection of thumb: Status: Acute Code(s): L08.9 - Local infection of the skin and subcutaneous tissue, unspecified Assessment and Plan: -Hospitalist consult. Pt reports pain, pressure. Will agree to treatment. Greater than 50% of the session was spent on counseling and/or coordination of care Reason for contiued inpatient stay Substantial Risk for: harm to self, inability to function, rapid decompensation and med/psych decompensation
[2020-07-25 18:00] VITALS: BP 160/72; PULSE 113; TEMP 37.1
[2020-07-25] MEDS: Magnesium Hydrox/Alum Hydrox 30 ML ORAL.SUSP PO (18:12)
[2020-07-25] MEDS: hydrOXYzine HCL 25 MG TABLET PO (21:19)
[2020-07-25] MEDS: Lithium Carbonate 300 MG CAPSULE PO (21:19)
[2020-07-26 06:20] VITALS: BP 103/61; PULSE 74; RESP 16; TEMP 36.8; O2SAT 98
[2020-07-26] MEDS: Gabapentin 300 MG CAPSULE PO ×2 (08:40→20:36)
[2020-07-26] MEDS: Lithium Carbonate 300 MG CAPSULE PO ×2 (08:40→20:35)
[2020-07-26] MEDS: lamoTRIgine 25 MG TABLET PO (08:41)
[2020-07-26] MEDS: Cholecalciferol (Vitamin D3) 25 MCG TABLET PO (08:41)
[2020-07-26] MEDS: Buprenorphine/Naloxone 8/2 mg TAB.SUBL 1 TAB SUBLINGUAL (08:41)
[2020-07-26] MEDS: ARIPiprazole 20 MG TABLET PO (08:41)
--- NOTE | 2020-07-26 10:50 | HO.PSYCHPN ---
Subjective Subjective Date of Service: 07/26/20 Reason For Visit: Overdose, bipolar do Subjective Notes: Conditional Voluntary Interim History: Discussed return to [facility] and longer term dual diagnoses needs. Medication Compliance: Yes Side effects from medications: No Attending Groups: Intermittent (discussed with pt.) Review of Systems Review of Systems Yes all other systems are reviewed and are negative (denies current sx.) Psychiatric: Reports mood swings Mental Status Exam Mental Status Exam Patient Appearance: Appropriate Patient Orientation: Person, Place, Time and Situation Level of Consciousness: Awake and Alert Patient Behavior: Appropriate, Talkative, Hyperactive, Anxious, Distractible and Good Eye Contact Mood Description: Labile and Expansive Affect Description: Labile Patient Cognition Impaired: No Ability to Follow Directions: Good Speech Pattern: Spontaneous Speech, Soft-Spoken and Rapid Memory Description: Episodic Impaired Hallucinations: None Delusions: Not Present Thought Process: Intact and Distracted Thought Content: positive for [place] and positive for Circumstantial Depressive Symptoms: Increased Anxiety Judgement: Fair Diagnostics Vital Signs (24Hr): Vital Signs - 24 hr 07/25/20 18:00 07/26/20 06:20 Temperature 98.8 F 98.3 F Pulse Rate 113 H 74 Respiratory Rate 16 Blood Pressure 160/72 H 103/61 Pulse Oximetry 98 Body Mass Index 19.4 Medications Medications Current Medications Generic Name Dose Route Start Last Admin Trade Name Freq PRN Reason Stop Dose Admin Acetaminophen 650 mg 07/22/20 20:32 Acetaminophen 325 Mg Tablet PO Q6H PRN Headache/Pain Mild Scale (1-3) Al Hydroxide/Mg Hydroxide 30 ml 07/22/20 20:32 07/25/20 18:12 Magnesium Hydrox/Alum Hydrox 30 Ml Oral.Susp PO 30 ml Q6H PRN Administration Heartburn/Nausea Aripiprazole 20 mg 07/26/20 09:00 07/26/20 08:41 Aripiprazole 20 Mg Tablet PO 20 mg DAILY [facility] Administration Buprenorphine/Naloxone 1 tab 07/25/20 09:00 07/26/20 08:41 Buprenorphine/Naloxone 8/2 Mg Tab.Subl SUBLINGUAL 1 tab DAILY [facility] Administration Clonidine HCl 0.1 mg 07/24/20 10:17 07/25/20 01:18 Clonidine Hcl 0.1 Mg Tablet PO 0.1 mg TID PRN Administration Opiate Withdrawal Protocol Diphenhydramine HCl 50 mg 07/22/20 21:39 Diphenhydramine Hcl 25 Mg Tablet PO Q6H PRN Muscle Spasm/dystonia Doxycycline Hyclate 100 mg 07/26/20 08:00 07/26/20 08:41 Doxycycline Hyclate 100 Mg Tablet PO 100 mg Q12H [facility] Administration Gabapentin 300 mg 07/23/20 09:00 07/26/20 08:40 Gabapentin 300 Mg Capsule PO 300 mg TID [facility] Administration Hydroxyzine HCl 25 mg 07/22/20 20:32 07/25/20 21:19 Hydroxyzine Hcl 25 Mg Tablet PO 25 mg BEDTIME PRN Administration Anxiety Lamotrigine 25 mg 07/23/20 09:00 07/26/20 08:41 Lamotrigine 25 Mg Tablet PO 25 mg DAILY [facility] Administration [place] Carbonate 300 mg 07/25/20 21:00 07/26/20 08:40 [place] Carbonate 300 Mg Capsule PO 300 mg BID [facility] Administration Lorazepam 1 mg 07/22/20 21:39 07/25/20 20:54 Lorazepam 1 Mg Tablet PO 1 mg Q4H PRN Administration anxiety/restlessness Magnesium Hydroxide 30 ml 07/22/20 20:32 Milk Of Magnesia 30 Ml Oral.Susp PO DAILY PRN Constipation Multivitamins/Minerals 1 tab 07/23/20 09:00 07/26/20 08:41 Multivitamin With Minerals Tablet PO 1 tab DAILY [facility] Administration Nicotine 21 mg 07/23/20 09:00 07/26/20 08:55 Nicotine 21 Mg Patch.Td24 TRANSDERMA Not Given DAILY [facility] Nicotine Polacrilex 4 mg 07/22/20 20:32 Nicotine Polacrilex 2 Mg Gum BUCCAL Q2H PRN Nicotine Cravings Trazodone HCl 50 mg 07/22/20 20:32 07/25/20 21:19 Trazodone Hcl 50 Mg Tablet PO 50 mg BEDTIME PRN Administration Insomnia Vitamin D 25 mcg 07/23/20 09:00 07/26/20 08:41 Cholecalciferol (Vitamin D3) 25 Mcg Tablet PO 25 mcg DAILY [facility] Administration Allergies Allergies Allergy/AdvReac Type Severity Reaction Status Date / Time amoxicillin [Amoxicillin] Allergy Unknown HIVES Verified 06/22/20 20:19 From Augmentin Allergy Unknown HIVES Uncoded 03/03/20 18:12 Assessment & Plan Assessment & Plan (1) Cellulitis of thumb, right: Status: Acute Code(s): L03.011 - Cellulitis of right finger Assessment and Plan: -Hospitalist consult much appreciated -Continue Doxycycline (2) Bipolar 1 disorder: Status: Acute Code(s): F31.9 - Bipolar disorder, unspecified Assessment and Plan: -Continue current regime. (3) Opioid dependence: Status: Acute Code(s): F11.20 - Opioid dependence, uncomplicated (4) Cocaine dependence: Status: Acute Code(s): F14.20 - Cocaine dependence, uncomplicated Greater than 50% of the session was spent on counseling and/or coordination of care Reason for contiued inpatient stay Substantial Risk for: harm to self, inability to function and rapid decompensation
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
[2020-07-26] MEDS: Acetaminophen 325 MG TABLET 650 MG PO (14:52)
--- NOTE | 2020-07-26 18:52 | P.PNPSI_ITS ---
Subjective Subjective Date of Service: 07/26/20 Reason For Visit: Overdose, bipolar do Diagnostics Vital Signs (24Hr): Vital Signs - 24 hr 07/26/20 06:20 Temperature 98.3 F Pulse Rate 74 Respiratory Rate 16 Blood Pressure 103/61 Pulse Oximetry 98 Body Mass Index 19.4 Medications Medications Current Medications Generic Name Dose Route Start Last Admin Trade Name Freq PRN Reason Stop Dose Admin Acetaminophen 650 mg 07/22/20 20:32 07/26/20 14:52 Acetaminophen 325 Mg Tablet PO 650 mg Q6H PRN Administration Headache/Pain Mild Scale (1-3) Al Hydroxide/Mg Hydroxide 30 ml 07/22/20 20:32 07/25/20 18:12 Magnesium Hydrox/Alum Hydrox 30 Ml Oral.Susp PO 30 ml Q6H PRN Administration Heartburn/Nausea Aripiprazole 20 mg 07/26/20 09:00 07/26/20 08:41 Aripiprazole 20 Mg Tablet PO 20 mg DAILY LUCAS Administration Buprenorphine/Naloxone 1 tab 07/25/20 09:00 07/26/20 08:41 Buprenorphine/Naloxone 8/2 Mg Tab.Subl SUBLINGUAL 1 tab DAILY LUCAS Administration Clonidine HCl 0.1 mg 07/24/20 10:17 07/25/20 01:18 Clonidine Hcl 0.1 Mg Tablet PO 0.1 mg TID PRN Administration Opiate Withdrawal Protocol Diphenhydramine HCl 50 mg 07/22/20 21:39 Diphenhydramine Hcl 25 Mg Tablet PO Q6H PRN Muscle Spasm/dystonia Doxycycline Hyclate 100 mg 07/26/20 08:00 07/26/20 08:41 Doxycycline Hyclate 100 Mg Tablet PO 100 mg Q12H LUCAS Administration Gabapentin 300 mg 07/23/20 09:00 07/26/20 14:49 Gabapentin 300 Mg Capsule PO Not Given TID LUCAS Hydroxyzine HCl 25 mg 07/22/20 20:32 07/25/20 21:19 Hydroxyzine Hcl 25 Mg Tablet PO 25 mg BEDTIME PRN Administration Anxiety Lamotrigine 25 mg 07/23/20 09:00 07/26/20 08:41 Lamotrigine 25 Mg Tablet PO 25 mg DAILY LUCAS Administration [place] Carbonate 300 mg 07/25/20 21:00 07/26/20 08:40 [place] Carbonate 300 Mg Capsule PO 300 mg BID LUCAS Administration Lorazepam 1 mg 07/22/20 21:39 07/25/20 20:54 Lorazepam 1 Mg Tablet PO 1 mg Q4H PRN Administration anxiety/restlessness Magnesium Hydroxide 30 ml 07/22/20 20:32 Milk Of Magnesia 30 Ml Oral.Susp PO DAILY PRN Constipation Multivitamins/Minerals 1 tab 07/23/20 09:00 07/26/20 08:41 Multivitamin With Minerals Tablet PO 1 tab DAILY LUCAS Administration Trazodone HCl 50 mg 07/22/20 20:32 07/25/20 21:19 Trazodone Hcl 50 Mg Tablet PO 50 mg BEDTIME PRN Administration Insomnia Vitamin D 25 mcg 07/23/20 09:00 07/26/20 08:41 Cholecalciferol (Vitamin D3) 25 Mcg Tablet PO 25 mcg DAILY LUCAS Administration Allergies Allergies Allergy/AdvReac Type Severity Reaction Status Date / Time amoxicillin [Amoxicillin] Allergy Unknown HIVES Verified 06/22/20 20:19 From Augmentin Allergy Unknown HIVES Uncoded 03/03/20 18:12 Assessment & Plan Greater than 50% of the session was spent on counseling and/or coordination of care
[2020-07-26] MEDS: traZODone HCL 100 MG TABLET PO (20:35)
[2020-07-26 20:43] VITALS: BP 114/57; PULSE 77; TEMP 36
[2020-07-27 06:25] VITALS: BP 124/58; PULSE 74; RESP 18; TEMP 37; O2SAT 98
[2020-07-27] MEDS: lamoTRIgine 25 MG TABLET PO (09:01)
[2020-07-27] MEDS: Lithium Carbonate 300 MG CAPSULE PO ×2 (09:01→20:10)
[2020-07-27] MEDS: ARIPiprazole 20 MG TABLET PO (09:01)
[2020-07-27] MEDS: Cholecalciferol (Vitamin D3) 25 MCG TABLET PO (09:01)
[2020-07-27] MEDS: Buprenorphine/Naloxone 8/2 mg TAB.SUBL 1 TAB SUBLINGUAL (09:01)
[2020-07-27] MEDS: Gabapentin 300 MG CAPSULE PO ×2 (09:01→15:15)
[2020-07-27 15:40] LABS: Influenza A PCR NEGATIVE (Negative); Influenza B PCR NEGATIVE (Negative); Resp Syncy Virus RNA Qual PCR NEGATIVE (Negative); SARS COV2 PCR INHOUSE NEGATIVE (Negative)
--- NOTE | 2020-07-27 16:53 | P.PNPSI_ITS ---
Subjective Subjective Date of Service: 07/27/20 Reason For Visit: Overdose, bipolar do Subjective Notes: Conditional Voluntary Interim History: Reports tolerating medications. Discussed previous regime given at [facility] and pt reports this was effective, however, when at [facility] they did not continue titration so we will proceed with a return to that regime at previous dosages. Pt reports rash-BLE, chest. Initially question of doxycycline reaction, however, pt reports rash was present long before antibiotic rx. Discussed having lab work which pt agrees to however recent labs cancelled due to inability of team to obtain a sample. Will reach out to the lab to plan. Pt reports she is pleased to return to [facility] level of care. Thinking and talking about what she needs to do differently to care for herself so she does not continue cycle of hospitalizations. Review of Systems Skin/Breast: Reports nail changes (thumb infection-doxycycline rx.) and Reports rash (reports alf, prior to antibiotic use) Psychiatric: Reports anxiety, Reports irritability and Reports mood swings Mental Status Exam Mental Status Exam Patient Appearance: Appropriate Patient Orientation: Person, Place and Time Level of Consciousness: Alert Patient Behavior: Anxious Mood Description: Angry Patient Cognition Impaired: No Ability to Follow Directions: Fair Speech Pattern: Spontaneous Speech Memory Description: Episodic Impaired Hallucinations: None Delusions: Not Present Thought Process: Intact Thought Content: positive for [place] and positive for Circumstantial Depressive Symptoms: Increased Irritability and Increased Fatigue Abnormal Motor Activity Signs and Symptoms: Agitation and Restlessness Judgement: Fair Diagnostics Vital Signs (24Hr): Vital Signs - 24 hr 07/26/20 20:43 07/27/20 06:25 Temperature 96.8 F 98.6 F Pulse Rate 77 74 Respiratory Rate 18 Blood Pressure 114/57 L 124/58 L Pulse Oximetry 98 Body Mass Index 19.4 Labs Labs: Laboratory Results - last 48 hr 07/27/20 14:36 Coronavirus (PCR) NEGATIVE Influenza Type A (PCR) NEGATIVE Influenza Type B (PCR) NEGATIVE RSV RNA Qual (PCR) NEGATIVE Medications Medications Current Medications Generic Name Dose Route Start Last Admin Trade Name Freq PRN Reason Stop Dose Admin Acetaminophen 650 mg 07/22/20 20:32 07/26/20 14:52 Acetaminophen 325 Mg Tablet PO 650 mg Q6H PRN Administration Headache/Pain Mild Scale (1-3) Al Hydroxide/Mg Hydroxide 30 ml 07/22/20 20:32 07/25/20 18:12 Magnesium Hydrox/Alum Hydrox 30 Ml Oral.Susp PO 30 ml Q6H PRN Administration Heartburn/Nausea Aripiprazole 20 mg 07/26/20 09:00 07/27/20 09:01 Aripiprazole 20 Mg Tablet PO 20 mg DAILY LUCAS Administration Buprenorphine/Naloxone 1 tab 07/25/20 09:00 07/27/20 09:01 Buprenorphine/Naloxone 8/2 Mg Tab.Subl SUBLINGUAL 1 tab DAILY LUCAS Administration Clonidine HCl 0.1 mg 07/24/20 10:17 07/25/20 01:18 Clonidine Hcl 0.1 Mg Tablet PO 0.1 mg TID PRN Administration Opiate Withdrawal Protocol Diphenhydramine HCl 50 mg 07/22/20 21:39 Diphenhydramine Hcl 25 Mg Tablet PO Q6H PRN Muscle Spasm/dystonia Doxycycline Hyclate 100 mg 07/26/20 08:00 07/27/20 09:01 Doxycycline Hyclate 100 Mg Tablet PO 100 mg Q12H LUCAS Administration Gabapentin 600 mg 07/27/20 21:00 Gabapentin 600 Mg Tablet PO TID LUCAS Hydroxyzine HCl 25 mg 07/22/20 20:32 07/25/20 21:19 Hydroxyzine Hcl 25 Mg Tablet PO 25 mg BEDTIME PRN Administration Anxiety Lamotrigine 25 mg 07/23/20 09:00 07/27/20 09:01 Lamotrigine 25 Mg Tablet PO 25 mg DAILY LUCAS Administration [place] Carbonate 300 mg 07/25/20 21:00 07/27/20 09:01 [place] Carbonate 300 Mg Capsule PO 300 mg BID LUCAS Administration Lorazepam 1 mg 07/22/20 21:39 07/25/20 20:54 Lorazepam 1 Mg Tablet PO 1 mg Q4H PRN Administration anxiety/restlessness Magnesium Hydroxide 30 ml 07/22/20 20:32 Milk Of Magnesia 30 Ml Oral.Susp PO DAILY PRN Constipation Multivitamins/Minerals 1 tab 07/23/20 09:00 07/27/20 09:01 Multivitamin With Minerals Tablet PO 1 tab DAILY LUCAS Administration Trazodone HCl 100 mg 07/26/20 21:00 07/26/20 20:35 Trazodone Hcl 100 Mg Tablet PO 100 mg BEDTIME LUCAS Administration Vitamin D 25 mcg 07/23/20 09:00 07/27/20 09:01 Cholecalciferol (Vitamin D3) 25 Mcg Tablet PO 25 mcg DAILY LUCAS Administration Allergies Allergies Allergy/AdvReac Type Severity Reaction Status Date / Time amoxicillin [Amoxicillin] Allergy Unknown HIVES Verified 06/22/20 20:19 From Augmentin Allergy Unknown HIVES Uncoded 03/03/20 18:12 Assessment & Plan Assessment & Plan (1) Bipolar 1 disorder: Status: Acute Code(s): F31.9 - Bipolar disorder, unspecified Assessment and Plan: - Titrate Gabapentin to 600 mg tid Greater than 50% of the session was spent on counseling and/or coordination of care Reason for contiued inpatient stay Substantial Risk for: harm to self, inability to function and rapid decompensation
[2020-07-27 18:00] VITALS: BP 122/54; PULSE 74; TEMP 36.8
[2020-07-27] MEDS: LORazepam 1 MG TABLET PO (19:04)
[2020-07-27] MEDS: traZODone HCL 100 MG TABLET PO (20:09)
[2020-07-27] MEDS: Gabapentin 600 MG TABLET PO (20:10)
[2020-07-28 06:05] VITALS: BP 104/57; PULSE 67; RESP 14; TEMP 36.6; O2SAT 97
[2020-07-28 07:00] VITALS: BMI 20.3
[2020-07-28] MEDS: Lithium Carbonate 300 MG CAPSULE PO ×2 (09:35→20:29)
[2020-07-28] MEDS: Cholecalciferol (Vitamin D3) 25 MCG TABLET PO (09:35)
[2020-07-28] MEDS: Gabapentin 600 MG TABLET PO ×3 (09:35→20:28)
[2020-07-28] MEDS: Buprenorphine/Naloxone 8/2 mg TAB.SUBL 1 TAB SUBLINGUAL (09:35)
[2020-07-28] MEDS: lamoTRIgine 25 MG TABLET PO (09:35)
[2020-07-28] MEDS: ARIPiprazole 20 MG TABLET PO (09:35)
--- NOTE | 2020-07-28 16:51 | P.PNPSI_ITS ---
Subjective Subjective Date of Service: 07/28/20 Reason For Visit: Overdose, bipolar do Subjective Notes: Conditional Voluntary Interim History: Prepared to transfer to [facility]. Agrees to lab draw. Labile, discussed lamictal titration. Will hold on [place] to see a level on 07/29. Denies SI, HI plan, intent. Sleep and appetite she reports are stabilizing. Medication Compliance: Yes Side effects from medications: No Attending Groups: Yes Review of Systems Reports behavioral changes and Reports numbness (fingers) Psychiatric: Reports behavioral changes, Reports irritability and Reports mood swings Mental Status Exam Mental Status Exam Patient Appearance: Disheveled Patient Orientation: Person, Place, Time and Situation Level of Consciousness: Awake and Alert Patient Behavior: Talkative and Distractible Mood Description: Labile Affect Description: Labile Patient Cognition Impaired: No Ability to Follow Directions: Good Speech Pattern: Spontaneous Speech and Soft-Spoken Memory Description: Episodic Impaired Hallucinations: None Delusions: Not Present Thought Process: Distracted Thought Content: positive for [place] and positive for Circumstantial Depressive Symptoms: Increased Irritability Judgement: Fair Diagnostics Vital Signs (24Hr): Vital Signs - 24 hr 07/27/20 18:00 07/28/20 06:05 Temperature 98.2 F 97.9 F Pulse Rate 74 67 Respiratory Rate 14 Blood Pressure 122/54 L 104/57 L Pulse Oximetry 97 Body Mass Index 19.4 Labs Labs: Laboratory Results - last 48 hr 07/27/20 14:36 Coronavirus (PCR) NEGATIVE Influenza Type A (PCR) NEGATIVE Influenza Type B (PCR) NEGATIVE RSV RNA Qual (PCR) NEGATIVE -Agrees to lab draw on 07/29/20. Medications Medications Current Medications Generic Name Dose Route Start Last Admin Trade Name Freq PRN Reason Stop Dose Admin Acetaminophen 650 mg 07/22/20 20:32 07/26/20 14:52 Acetaminophen 325 Mg Tablet PO 650 mg Q6H PRN Administration Headache/Pain Mild Scale (1-3) Al Hydroxide/Mg Hydroxide 30 ml 07/22/20 20:32 07/25/20 18:12 Magnesium Hydrox/Alum Hydrox 30 Ml Oral.Susp PO 30 ml Q6H PRN Administration Heartburn/Nausea Aripiprazole 20 mg 07/26/20 09:00 07/28/20 09:35 Aripiprazole 20 Mg Tablet PO 20 mg DAILY LUCAS Administration Buprenorphine/Naloxone 1 tab 07/25/20 09:00 07/28/20 09:35 Buprenorphine/Naloxone 8/2 Mg Tab.Subl SUBLINGUAL 1 tab DAILY LUCAS Administration Clonidine HCl 0.1 mg 07/24/20 10:17 07/25/20 01:18 Clonidine Hcl 0.1 Mg Tablet PO 0.1 mg TID PRN Administration Opiate Withdrawal Protocol Diphenhydramine HCl 50 mg 07/22/20 21:39 Diphenhydramine Hcl 25 Mg Tablet PO Q6H PRN Muscle Spasm/dystonia Doxycycline Hyclate 100 mg 07/26/20 08:00 07/28/20 09:35 Doxycycline Hyclate 100 Mg Tablet PO 100 mg Q12H LUCAS Administration Gabapentin 600 mg 07/27/20 21:00 07/28/20 14:54 Gabapentin 600 Mg Tablet PO 600 mg TID LUCAS Administration Hydroxyzine HCl 25 mg 07/22/20 20:32 07/25/20 21:19 Hydroxyzine Hcl 25 Mg Tablet PO 25 mg BEDTIME PRN Administration Anxiety Lamotrigine 25 mg 07/23/20 09:00 07/28/20 09:35 Lamotrigine 25 Mg Tablet PO 25 mg DAILY LUCAS Administration [place] Carbonate 300 mg 07/25/20 21:00 07/28/20 09:35 [place] Carbonate 300 Mg Capsule PO 300 mg BID LUCAS Administration Magnesium Hydroxide 30 ml 07/22/20 20:32 Milk Of Magnesia 30 Ml Oral.Susp PO DAILY PRN Constipation Multivitamins/Minerals 1 tab 07/23/20 09:00 07/28/20 09:35 Multivitamin With Minerals Tablet PO 1 tab DAILY LUCAS Administration Trazodone HCl 100 mg 07/26/20 21:00 07/27/20 20:09 Trazodone Hcl 100 Mg Tablet PO 100 mg BEDTIME LUCAS Administration Vitamin D 25 mcg 07/23/20 09:00 07/28/20 09:35 Cholecalciferol (Vitamin D3) 25 Mcg Tablet PO 25 mcg DAILY LUCAS Administration Allergies Allergies Allergy/AdvReac Type Severity Reaction Status Date / Time amoxicillin [Amoxicillin] Allergy Unknown HIVES Verified 06/22/20 20:19 From Augmentin Allergy Unknown HIVES Uncoded 03/03/20 18:12 Assessment & Plan Assessment & Plan (1) Bipolar 1 disorder: Status: Acute Code(s): F31.9 - Bipolar disorder, unspecified Assessment and Plan: -Lab draw 07/29/20 -Continue current regime -Increase Lamictal to 50 mg. (2) Opioid dependence: Status: Acute Code(s): F11.20 - Opioid dependence, uncomplicated Assessment and Plan: -Planning [facility] admission. [employer] has sent applications (3) Cocaine dependence: Status: Acute Code(s): F14.20 - Cocaine dependence, uncomplicated (4) Cellulitis of thumb, right: Status: Acute Code(s): L03.011 - Cellulitis of right finger Assessment and Plan: Reports numbness in fingers of right hand. Will monitor. Greater than 50% of the session was spent on counseling and/or coordination of care Reason for contiued inpatient stay Substantial Risk for: harm to self and rapid decompensation
[2020-07-28 17:48] VITALS: BP 143/65; PULSE 82
[2020-07-28] MEDS: cloNIDine HCL 0.1 MG TABLET PO (17:48)
[2020-07-28 18:00] VITALS: BP 122/63; PULSE 84; TEMP 36.6
[2020-07-28] MEDS: traZODone HCL 100 MG TABLET PO (20:28)
[2020-07-28] MEDS: hydrOXYzine HCL 25 MG TABLET PO (21:05)
[2020-07-29 06:10] VITALS: BP 95/53; PULSE 64; RESP 18; TEMP 36.8; O2SAT 99
[2020-07-29] MEDS: Gabapentin 600 MG TABLET PO ×3 (09:08→20:09)
[2020-07-29] MEDS: Cholecalciferol (Vitamin D3) 25 MCG TABLET PO (09:08)
[2020-07-29] MEDS: ARIPiprazole 20 MG TABLET PO (09:08)
[2020-07-29] MEDS: Lithium Carbonate 300 MG CAPSULE PO ×2 (09:08→20:09)
[2020-07-29] MEDS: Buprenorphine/Naloxone 8/2 mg TAB.SUBL 1 TAB SUBLINGUAL (10:10)
[2020-07-29] MEDS: lamoTRIgine 25 MG TABLET 50 MG PO (13:16)
[2020-07-29 18:00] VITALS: BP 124/60; PULSE 72; TEMP 37.1
--- NOTE | 2020-07-29 18:36 | P.PNPSI_ITS ---
Subjective Subjective Date of Service: 07/30/20 Reason For Visit: Overdose, bipolar do Subjective Notes: Conditional Voluntary Interim History: Refused labs today-several refusals-discussed with pt. She wants to continue to try to get labs-has fear of lab draw-encouraged her to reach out to team who can be a support. Ready to transition to TSS. Reports depressive sx. Medication Compliance: Yes Side effects from medications: No Attending Groups: Yes Review of Systems Psychiatric: Reports depression, Reports difficulty concentrating, Reports irritability and Reports mood swings Mental Status Exam Mental Status Exam Patient Appearance: Disheveled Patient Orientation: Person, Place, Time and Situation Level of Consciousness: Awake and Alert Patient Behavior: Talkative, Anxious, Distractible and Impulsive Mood Description: Depressed, Anxious and Labile Affect Description: Depressed and Labile Patient Cognition Impaired: No Ability to Follow Directions: Good Speech Pattern: Spontaneous Speech Memory Description: Episodic Impaired Hallucinations: None Delusions: Not Present Thought Process: Rumination Thought Content: positive for [place], positive for Circumstantial and positive for [place] Depressive Symptoms: Increased Irritability, Unhappiness, Loss of Energy and Difficulty Concentrating Judgement: Fair Diagnostics Vital Signs (24Hr): Vital Signs - 24 hr 07/29/20 06:10 Temperature 98.2 F Pulse Rate 64 Respiratory Rate 18 Blood Pressure 95/53 L Pulse Oximetry 99 Body Mass Index 20.3 Labs Results: 07/30/20 08:11 07/30/20 08:11 Medications Medications Current Medications Generic Name Dose Route Start Last Admin Trade Name Freq PRN Reason Stop Dose Admin Acetaminophen 650 mg 07/22/20 20:32 07/26/20 14:52 Acetaminophen 325 Mg Tablet PO 650 mg Q6H PRN Administration Headache/Pain Mild Scale (1-3) Al Hydroxide/Mg Hydroxide 30 ml 07/22/20 20:32 07/25/20 18:12 Magnesium Hydrox/Alum Hydrox 30 Ml Oral.Susp PO 30 ml Q6H PRN Administration Heartburn/Nausea Aripiprazole 20 mg 07/26/20 09:00 07/29/20 09:08 Aripiprazole 20 Mg Tablet PO 20 mg DAILY LUCAS Administration Buprenorphine/Naloxone 1 tab 07/25/20 09:00 07/29/20 10:10 Buprenorphine/Naloxone 8/2 Mg Tab.Subl SUBLINGUAL 1 tab DAILY LUCAS Administration Bupropion HCl 75 mg 07/30/20 09:00 Bupropion Hcl 75 Mg Tablet PO DAILY LUCAS Clonidine HCl 0.1 mg 07/24/20 10:17 07/28/20 17:48 Clonidine Hcl 0.1 Mg Tablet PO 0.1 mg TID PRN Administration Opiate Withdrawal Protocol Diphenhydramine HCl 50 mg 07/22/20 21:39 Diphenhydramine Hcl 25 Mg Tablet PO Q6H PRN Muscle Spasm/dystonia Doxycycline Hyclate 100 mg 07/26/20 08:00 07/29/20 09:08 Doxycycline Hyclate 100 Mg Tablet PO 100 mg Q12H LUCAS Administration Gabapentin 600 mg 07/27/20 21:00 07/29/20 15:23 Gabapentin 600 Mg Tablet PO 600 mg TID LUCAS Administration Hydroxyzine HCl 25 mg 07/22/20 20:32 07/28/20 21:05 Hydroxyzine Hcl 25 Mg Tablet PO 25 mg BEDTIME PRN Administration Anxiety Lamotrigine 50 mg 07/29/20 12:30 07/29/20 13:16 Lamotrigine 25 Mg Tablet PO 50 mg DAILY LUCAS Administration [place] Carbonate 300 mg 07/25/20 21:00 07/29/20 09:08 [place] Carbonate 300 Mg Capsule PO 300 mg BID LUCAS Administration Magnesium Hydroxide 30 ml 07/22/20 20:32 Milk Of Magnesia 30 Ml Oral.Susp PO DAILY PRN Constipation Multivitamins/Minerals 1 tab 07/23/20 09:00 07/29/20 09:08 Multivitamin With Minerals Tablet PO 1 tab DAILY LUCAS Administration Trazodone HCl 100 mg 07/26/20 21:00 07/28/20 20:28 Trazodone Hcl 100 Mg Tablet PO 100 mg BEDTIME LUCAS Administration Vitamin D 25 mcg 07/23/20 09:00 07/29/20 09:08 Cholecalciferol (Vitamin D3) 25 Mcg Tablet PO 25 mcg DAILY LUCAS Administration Allergies Allergies Allergy/AdvReac Type Severity Reaction Status Date / Time amoxicillin [Amoxicillin] Allergy Unknown HIVES Verified 06/22/20 20:19 From Augmentin Allergy Unknown HIVES Uncoded 03/03/20 18:12 Assessment & Plan Assessment & Plan (1) Bipolar 1 disorder: Status: Acute Code(s): F31.9 - Bipolar disorder, unspecified Assessment and Plan: -Wellbutrin 75 mg a.m. (2) Opioid dependence: Status: Acute Code(s): F11.20 - Opioid dependence, uncomplicated Assessment and Plan: -CSS admission pending (3) Cocaine dependence: Status: Acute Code(s): F14.20 - Cocaine dependence, uncomplicated Assessment and Plan: -CSS admission pending Greater than 50% of the session was spent on counseling and/or coordination of care Reason for contiued inpatient stay Substantial Risk for: harm to self, rapid decompensation and other (relapse)
[2020-07-29] MEDS: hydrOXYzine HCL 25 MG TABLET PO (20:09)
[2020-07-29] MEDS: traZODone HCL 100 MG TABLET PO (21:16)
[2020-07-30 06:42] VITALS: BP 96/49; PULSE 64; RESP 14; TEMP 36.3; O2SAT 99
[2020-07-30 08:18] LABS: MANUAL DIFF FLAG NO
[2020-07-30] MEDS: Gabapentin 600 MG TABLET PO ×3 (08:20→20:23)
[2020-07-30] MEDS: Cholecalciferol (Vitamin D3) 25 MCG TABLET PO (08:20)
[2020-07-30] MEDS: ARIPiprazole 20 MG TABLET PO (08:20)
[2020-07-30] MEDS: lamoTRIgine 25 MG TABLET 50 MG PO (08:22)
[2020-07-30] MEDS: Lithium Carbonate 300 MG CAPSULE PO ×2 (08:22→20:23)
[2020-07-30] MEDS: buPROPion HCL 75 MG TABLET PO (08:22)
[2020-07-30 08:23] LABS: Basophils Percent Auto 0.2 % (0-2); Eosinophils Absolute Auto 0.3 X10*3/uL (0.0-0.4); Eosinophils Percent Auto 3.8 % (0-4); Hematocrit 36.2 % (37-47); Hemoglobin 11.3 g/dl (12.0-16.0); Imm Gran Abs Auto 0.02 X10*3/uL (0.00-0.03); Imm Gran Pct Auto 0.3 % (0.0-0.4); Lymphocytes Absolute Auto 2.7 X10*3/uL (1.2-4.9); Mean Corpuscular HGB Conc 31.2 g/dl (31.0-35.0); Mean Corpuscular Hemoglobin 24.5 pg (27.0-33.0); Mean Corpuscular Volume 78.5 fL (80-98); Monocytes Absolute Auto 0.6 X10*3/uL (0.1-1.2); Monocytes Percent Auto 8.8 % (2-11); Neutrophils Percent Auto 45.9 % (45-73); Platelet Count 269 X10*3/uL (160-400); Red Blood Count 4.61 X10*6/uL (4.20-5.50); Red Cell Distribution Width 16.4 % (11.0-16.0); White Blood Count 6.6 X10*3/uL (4.8-10.8)
[2020-07-30 08:37] LABS: Lithium 0.33 mmol/L (0.60-1.20)
[2020-07-30 08:43] LABS: Alanine Aminotransferase 71 U/L (0-31); Albumin Level 3.6 g/dL (3.5-5.0); Alkaline Phosphatase 58 U/L (39-117); Anion Gap 13 (12-20); Aspartate Amino Transferase 41 U/L (5-31); Bilirubin Total 0.5 mg/dL (0.0-1.0); Blood Urea Nitrogen 23 mg/dL (9-16); Calcium 9.2 mg/dL (8.4-10.2); Carbon Dioxide 27 mmol/L (22-29); Chloride 105 mmol/L (96-108); Cholesterol 206 mg/dL; Estimated Glomerular Filt Rate > 60; Glucose Random 91 mg/dL (60-115); HDL Cholesterol 62 mg/dL; LDL Cholesterol Calculated 124 mg/dl; Potassium 4.2 mmol/L (3.3-5.1); Sodium 141 mmol/L (135-145); Total Protein 6.8 g/dL (6.5-8.0); Triglycerides 101 mg/dL
[2020-07-30 08:46] LABS: Estimated Average Glucose 111 mg/dL; Hemoglobin A1c % 5.5 %
[2020-07-30] MEDS: Buprenorphine/Naloxone 8/2 mg TAB.SUBL 1 TAB SUBLINGUAL (08:59)
[2020-07-30 09:04] LABS: Thyroid Stimulating Hormone 1.74 uIU/mL (0.32-4.0)
[2020-07-30 17:06] VITALS: BP 109/58; PULSE 70; TEMP 37
[2020-07-30] MEDS: traZODone HCL 100 MG TABLET PO (20:23)
[2020-07-30] MEDS: hydrOXYzine HCL 25 MG TABLET PO (20:26)
--- NOTE | 2020-07-30 22:13 | HO.PSYCHPN ---
Subjective Subjective Date of Service: 07/30/20 Reason For Visit: Overdose, bipolar do Interim History: pt seen, chart reviewed vitals reviewed: mild hypotension Pt reports she's good and denies any SI/HI/AVH. She says mood is better and that she's sleeping well. She says she was just started on Wellbutrin which she says seems like it's working already; she denies any side-effects. Nursing reported pt refused Suboxone in AM but took it later on in day Medication Compliance: Yes Side effects from medications: No Attending Groups: Yes Mental Status Exam Mental Status Exam Narrative: Patient Appearance: Appropriate Patient Orientation: Person, Place, Time and Situation Level of Consciousness: Awake and Appropriate Patient Behavior: Appropriate and Good Eye Contact Mood Description: Calm and Relaxed Affect Description: Calm and Appropriate Patient Cognition Impaired: No Ability to Follow Directions: Good Speech Pattern: Clear Memory Description: Intact Hallucinations: None Delusions: Not Present Thought Process: Intact Thought Content: positive for Intact Judgement and Insight: appear intact Diagnostics Vital Signs (24Hr): Vital Signs - 24 hr 07/30/20 06:42 07/30/20 17:06 Temperature 97.4 F 98.6 F Pulse Rate 64 70 Respiratory Rate 14 Blood Pressure 96/49 L 109/58 L Pulse Oximetry 99 Body Mass Index 20.3 Labs Results: 07/30/20 08:11 07/30/20 08:11 Labs: Laboratory Results - last 48 hr 07/30/20 07/30/20 07/30/20 08:11 08:11 08:11 WBC 6.6 RBC 4.61 Hgb 11.3 L Hct 36.2 L MCV 78.5 L MCH 24.5 L MCHC 31.2 RDW 16.4 H Plt Count 269 MPV 12.0 Immature Gran % (Auto) 0.3 Neut % (Auto) 45.9 Lymph % (Auto) 41.0 H [place] % (Auto) 8.8 Eos % (Auto) 3.8 Baso % (Auto) 0.2 Lymph # (Auto) 2.7 [place] # (Auto) 0.6 Eos # (Auto) 0.3 Baso # (Auto) 0.0 Abs Immat Gran (auto) 0.02 Absolute Neuts (auto) 3.0 Absolute Nucleated RBC 0.000 Nucleated RBC % (auto) 0.0 Sodium 141 Potassium 4.2 Chloride 105 Carbon Dioxide 27 Anion Gap 13 BUN 23 H D Creatinine 0.79 Estim Creat Clear Calc 94.0 Estimated GFR > 60 Random Glucose 91 Estimat Average Glucose 111 Hemoglobin A1c % 5.5 Calcium 9.2 Total Bilirubin 0.5 AST 41 H D ALT 71 H Alkaline Phosphatase 58 Total Protein 6.8 Albumin 3.6 Triglycerides 101 Cholesterol 206 LDL Cholesterol, Calc 124 HDL Cholesterol 62 TSH 1.74 [place] 07/30/20 08:11 WBC RBC Hgb Hct MCV MCH MCHC RDW Plt Count MPV Immature Gran % (Auto) Neut % (Auto) Lymph % (Auto) [place] % (Auto) Eos % (Auto) Baso % (Auto) Lymph # (Auto) [place] # (Auto) Eos # (Auto) Baso # (Auto) Abs Immat Gran (auto) Absolute Neuts (auto) Absolute Nucleated RBC Nucleated RBC % (auto) Sodium Potassium Chloride Carbon Dioxide Anion Gap BUN Creatinine Estim Creat Clear Calc Estimated GFR Random Glucose Estimat Average Glucose Hemoglobin A1c % Calcium Total Bilirubin AST ALT Alkaline Phosphatase Total Protein Albumin Triglycerides Cholesterol LDL Cholesterol, Calc HDL Cholesterol TSH [place] 0.33 L Medications Medications Current Medications Generic Name Dose Route Start Last Admin Trade Name Freq PRN Reason Stop Dose Admin Acetaminophen 650 mg 07/22/20 20:32 07/26/20 14:52 Acetaminophen 325 Mg Tablet PO 650 mg Q6H PRN Administration Headache/Pain Mild Scale (1-3) Al Hydroxide/Mg Hydroxide 30 ml 07/22/20 20:32 07/25/20 18:12 Magnesium Hydrox/Alum Hydrox 30 Ml Oral.Susp PO 30 ml Q6H PRN Administration Heartburn/Nausea Aripiprazole 20 mg 07/26/20 09:00 07/30/20 08:20 Aripiprazole 20 Mg Tablet PO 20 mg DAILY LUCAS Administration Buprenorphine/Naloxone 1 tab 07/25/20 09:00 07/30/20 08:59 Buprenorphine/Naloxone 8/2 Mg Tab.Subl SUBLINGUAL 1 tab DAILY LUCAS Administration Bupropion HCl 75 mg 07/30/20 09:00 07/30/20 08:22 Bupropion Hcl 75 Mg Tablet PO 75 mg DAILY LUCAS Administration Clonidine HCl 0.1 mg 07/24/20 10:17 07/28/20 17:48 Clonidine Hcl 0.1 Mg Tablet PO 0.1 mg TID PRN Administration Opiate Withdrawal Protocol Diphenhydramine HCl 50 mg 07/22/20 21:39 Diphenhydramine Hcl 25 Mg Tablet PO Q6H PRN Muscle Spasm/dystonia Doxycycline Hyclate 100 mg 07/26/20 08:00 07/30/20 20:23 Doxycycline Hyclate 100 Mg Tablet PO 100 mg Q12H LUCAS Administration Gabapentin 600 mg 07/27/20 21:00 07/30/20 20:23 Gabapentin 600 Mg Tablet PO 600 mg TID LUCAS Administration Hydroxyzine HCl 25 mg 07/22/20 20:32 07/30/20 20:26 Hydroxyzine Hcl 25 Mg Tablet PO 25 mg BEDTIME PRN Administration Anxiety Lamotrigine 50 mg 07/29/20 12:30 07/30/20 08:22 Lamotrigine 25 Mg Tablet PO 50 mg DAILY LUCAS Administration [place] Carbonate 300 mg 07/25/20 21:00 07/30/20 20:23 [place] Carbonate 300 Mg Capsule PO 300 mg BID LUCAS Administration Magnesium Hydroxide 30 ml 07/22/20 20:32 Milk Of Magnesia 30 Ml Oral.Susp PO DAILY PRN Constipation Multivitamins/Minerals 1 tab 07/23/20 09:00 07/30/20 08:22 Multivitamin With Minerals Tablet PO 1 tab DAILY LUCAS Administration Trazodone HCl 100 mg 07/26/20 21:00 07/30/20 20:23 Trazodone Hcl 100 Mg Tablet PO 100 mg BEDTIME LUCAS Administration Vitamin D 25 mcg 07/23/20 09:00 07/30/20 08:20 Cholecalciferol (Vitamin D3) 25 Mcg Tablet PO 25 mcg DAILY LUCAS Administration Allergies Allergies Allergy/AdvReac Type Severity Reaction Status Date / Time amoxicillin [Amoxicillin] Allergy Unknown HIVES Verified 06/22/20 20:19 From Augmentin Allergy Unknown HIVES Uncoded 03/03/20 18:12 Assessment & Plan Impression: pt stable; reports in good mood; appropriate behaviors on unit and adhering with treatment. DX: bipolar opioid use disorder on maintenance therapy plan: no changes to current treatment plan at this time [place] level low, however, pt appears stable, sleeping and w/out manic symptoms so will leave dose as is for now Greater than 50% of the session was spent on counseling and/or coordination of care Reason for contiued inpatient stay Substantial Risk for: med/psych decompensation
[2020-07-31 06:00] VITALS: BP 100/50; PULSE 58; RESP 16; TEMP 36.9; O2SAT 98
[2020-07-31] MEDS: ARIPiprazole 20 MG TABLET PO (09:05)
[2020-07-31] MEDS: buPROPion HCL 75 MG TABLET PO (09:05)
[2020-07-31] MEDS: Cholecalciferol (Vitamin D3) 25 MCG TABLET PO (09:05)
[2020-07-31] MEDS: Lithium Carbonate 300 MG CAPSULE PO ×2 (09:06→21:09)
[2020-07-31] MEDS: lamoTRIgine 25 MG TABLET 50 MG PO (09:06)
--- NOTE | 2020-07-31 10:49 | P.PNPSI_ITS ---
Subjective Subjective Date of Service: 07/31/20 Reason For Visit: Overdose, bipolar do Interim History: pt seen, chart reviewed vitals reviewed: mild hypotension Pt reports she's in good mood and will likely discharge next week. She reports sleeping well. [employer] Install[employer] inquired why she did not take Suboxone today and pt reports it makes her too sedated. She says she does not want to be on it anymore, thinks that her opioid use is minimal and thus, will stay abstinent without it. [employer]ic discussed withdrawal and pt said that at current dose, she will not go into withdrawal and does not want a taper. On further discussion of maintenance medication, pt says she'd like to get on Vivitrol if possible. Pt also wants Gabapentin PRN since it too can make her feel sedated. She agreed to leave as is and will just refuse if wants to. Medication Compliance: Intermittent Side effects from medications: No Attending Groups: Yes Mental Status Exam Mental Status Exam Narrative: Patient Appearance: Well Grooomed today in dress, hair done Patient Orientation: Person, Place, Time and Situation Level of Consciousness: Awake and Appropriate Patient Behavior: Appropriate and Good Eye Contact Mood Description: Calm and Relaxed Affect Description: Calm and Appropriate Patient Cognition Impaired: No Ability to Follow Directions: Good Speech Pattern: Clear Memory Description: Intact Hallucinations: None Delusions: Not Present Thought Process: Intact Thought Content: positive for Intact Judgement and Insight: appear intact, though some minimizing of relapse risk Diagnostics Vital Signs (24Hr): Vital Signs - 24 hr 07/30/20 17:06 07/31/20 06:00 Temperature 98.6 F 98.4 F Pulse Rate 70 58 Respiratory Rate 16 Blood Pressure 109/58 L 100/50 L Pulse Oximetry 98 Body Mass Index 20.3 Labs Results: 07/30/20 08:11 07/30/20 08:11 Labs: Laboratory Results - last 48 hr 07/30/20 07/30/20 07/30/20 08:11 08:11 08:11 WBC 6.6 RBC 4.61 Hgb 11.3 L Hct 36.2 L MCV 78.5 L MCH 24.5 L MCHC 31.2 RDW 16.4 H Plt Count 269 MPV 12.0 Immature Gran % (Auto) 0.3 Neut % (Auto) 45.9 Lymph % (Auto) 41.0 H [place] % (Auto) 8.8 Eos % (Auto) 3.8 Baso % (Auto) 0.2 Lymph # (Auto) 2.7 [place] # (Auto) 0.6 Eos # (Auto) 0.3 Baso # (Auto) 0.0 Abs Immat Gran (auto) 0.02 Absolute Neuts (auto) 3.0 Absolute Nucleated RBC 0.000 Nucleated RBC % (auto) 0.0 Sodium 141 Potassium 4.2 Chloride 105 Carbon Dioxide 27 Anion Gap 13 BUN 23 H D Creatinine 0.79 Estim Creat Clear Calc 94.0 Estimated GFR > 60 Random Glucose 91 Estimat Average Glucose 111 Hemoglobin A1c % 5.5 Calcium 9.2 Total Bilirubin 0.5 AST 41 H D ALT 71 H Alkaline Phosphatase 58 Total Protein 6.8 Albumin 3.6 Triglycerides 101 Cholesterol 206 LDL Cholesterol, Calc 124 HDL Cholesterol 62 TSH 1.74 [place] 07/30/20 08:11 WBC RBC Hgb Hct MCV MCH MCHC RDW Plt Count MPV Immature Gran % (Auto) Neut % (Auto) Lymph % (Auto) [place] % (Auto) Eos % (Auto) Baso % (Auto) Lymph # (Auto) [place] # (Auto) Eos # (Auto) Baso # (Auto) Abs Immat Gran (auto) Absolute Neuts (auto) Absolute Nucleated RBC Nucleated RBC % (auto) Sodium Potassium Chloride Carbon Dioxide Anion Gap BUN Creatinine Estim Creat Clear Calc Estimated GFR Random Glucose Estimat Average Glucose Hemoglobin A1c % Calcium Total Bilirubin AST ALT Alkaline Phosphatase Total Protein Albumin Triglycerides Cholesterol LDL Cholesterol, Calc HDL Cholesterol TSH [place] 0.33 L Medications Medications Current Medications Generic Name Dose Route Start Last Admin Trade Name Freq PRN Reason Stop Dose Admin Acetaminophen 650 mg 07/22/20 20:32 07/26/20 14:52 Acetaminophen 325 Mg Tablet PO 650 mg Q6H PRN Administration Headache/Pain Mild Scale (1-3) Al Hydroxide/Mg Hydroxide 30 ml 07/22/20 20:32 07/25/20 18:12 Magnesium Hydrox/Alum Hydrox 30 Ml Oral.Susp PO 30 ml Q6H PRN Administration Heartburn/Nausea Aripiprazole 20 mg 07/26/20 09:00 07/31/20 09:05 Aripiprazole 20 Mg Tablet PO 20 mg DAILY LUCAS Administration Buprenorphine/Naloxone 1 tab 07/25/20 09:00 07/31/20 09:09 Buprenorphine/Naloxone 8/2 Mg Tab.Subl SUBLINGUAL Not Given DAILY LUCAS Bupropion HCl 75 mg 07/30/20 09:00 07/31/20 09:05 Bupropion Hcl 75 Mg Tablet PO 75 mg DAILY LUCAS Administration Clonidine HCl 0.1 mg 07/24/20 10:17 07/28/20 17:48 Clonidine Hcl 0.1 Mg Tablet PO 0.1 mg TID PRN Administration Opiate Withdrawal Protocol Diphenhydramine HCl 50 mg 07/22/20 21:39 Diphenhydramine Hcl 25 Mg Tablet PO Q6H PRN Muscle Spasm/dystonia Doxycycline Hyclate 100 mg 07/26/20 08:00 07/31/20 09:06 Doxycycline Hyclate 100 Mg Tablet PO 100 mg Q12H LUCAS Administration Gabapentin 600 mg 07/27/20 21:00 07/31/20 09:09 Gabapentin 600 Mg Tablet PO Not Given TID LUCAS Hydroxyzine HCl 25 mg 07/22/20 20:32 07/30/20 20:26 Hydroxyzine Hcl 25 Mg Tablet PO 25 mg BEDTIME PRN Administration Anxiety Lamotrigine 50 mg 07/29/20 12:30 07/31/20 09:06 Lamotrigine 25 Mg Tablet PO 50 mg DAILY LUCAS Administration [place] Carbonate 300 mg 07/25/20 21:00 07/31/20 09:06 [place] Carbonate 300 Mg Capsule PO 300 mg BID LUCAS Administration Magnesium Hydroxide 30 ml 07/22/20 20:32 Milk Of Magnesia 30 Ml Oral.Susp PO DAILY PRN Constipation Multivitamins/Minerals 1 tab 07/23/20 09:00 07/31/20 09:05 Multivitamin With Minerals Tablet PO 1 tab DAILY LUCAS Administration Trazodone HCl 100 mg 07/26/20 21:00 07/30/20 20:23 Trazodone Hcl 100 Mg Tablet PO 100 mg BEDTIME LUCAS Administration Vitamin D 25 mcg 07/23/20 09:00 07/31/20 09:05 Cholecalciferol (Vitamin D3) 25 Mcg Tablet PO 25 mcg DAILY LUCAS Administration Allergies Allergies Allergy/AdvReac Type Severity Reaction Status Date / Time amoxicillin [Amoxicillin] Allergy Unknown HIVES Verified 06/22/20 20:19 From Augmentin Allergy Unknown HIVES Uncoded 03/03/20 18:12 Assessment & Plan Impression: pt stable; remains in good mood; appropriate behaviors on unit and adhering with treatment. wants off Suboxone but curious about Vivitrol DX: bipolar opioid use disorder on maintenance therapy plan: Will DC Suboxone since pt does not want anymore (does not want taper) Primary team to discuss Vivitrol, which pt would like [place] level low, however, pt appears stable, sleeping and w/out manic symptoms so will leave dose as is for now Greater than 50% of the session was spent on counseling and/or coordination of care Patient educated on: medication risk/benefits and substance abuse Reason for contiued inpatient stay Substantial Risk for: med/psych decompensation
[2020-07-31] MEDS: Gabapentin 600 MG TABLET 300 MG PO (13:49)
[2020-07-31] MEDS: Acetaminophen 325 MG TABLET 650 MG PO (16:06)
[2020-07-31] MEDS: Gabapentin 300 MG CAPSULE PO (16:46)
[2020-07-31 16:47] VITALS: BP 110/58; PULSE 72; TEMP 37.1
[2020-07-31] MEDS: Gabapentin 600 MG TABLET PO (21:09)
[2020-07-31] MEDS: traZODone HCL 100 MG TABLET PO (21:09)
[2020-07-31] MEDS: hydrOXYzine HCL 25 MG TABLET PO (21:18)
[2020-08-01 06:20] VITALS: BP 97/52; PULSE 56; RESP 16; TEMP 36.5; O2SAT 98
[2020-08-01] MEDS: ARIPiprazole 20 MG TABLET PO (09:22)
[2020-08-01] MEDS: lamoTRIgine 25 MG TABLET 50 MG PO (09:22)
[2020-08-01] MEDS: Cholecalciferol (Vitamin D3) 25 MCG TABLET PO (09:22)
[2020-08-01] MEDS: Lithium Carbonate 300 MG CAPSULE PO ×2 (09:22→20:16)
[2020-08-01] MEDS: buPROPion HCL 75 MG TABLET PO (09:23)
--- NOTE | 2020-08-01 10:51 | P.PNPSI_ITS ---
Subjective Subjective Date of Service: 08/01/20 Reason For Visit: Overdose, bipolar do Interim History: pt seen, chart reviewed vitals reviewed: hypotension Pt sitting on bed, reading book; she's friendly and calm. Pt reports she's in good mood and says she's quite well; she reports good sleep and says no complaints. Pt says neurotin continues to make her tired; she is ambivalent a bout lowering dose vs just not taking it but will discuss w/ primary team. Pt denies withdrawal since still not taking Suboxone. She remains interested in getting on Vivitrol. Medication Compliance: Intermittent Side effects from medications: No Attending Groups: Yes Medication Compliance: Yes Side effects from medications: Yes (gabapentin: sedation) Attending Groups: Yes Mental Status Exam Mental Status Exam Narrative: Patient Appearance: Well Groomed, lipstick Patient Orientation: Person, Place, Time and Situation Level of Consciousness: Awake and Appropriate Patient Behavior: Appropriate and Good Eye Contact Mood Description: Calm and Relaxed Affect Description: Calm and Appropriate Patient Cognition Impaired: No Ability to Follow Directions: Good Speech Pattern: Clear Memory Description: Intact Hallucinations: None Delusions: Not Present Thought Process: Intact Thought Content: positive for Intact Judgement and Insight: appear intact Diagnostics Vital Signs (24Hr): Vital Signs - 24 hr 07/31/20 16:47 08/01/20 06:20 Temperature 98.8 F 97.7 F Pulse Rate 72 56 Respiratory Rate 16 Blood Pressure 110/58 L 97/52 L Pulse Oximetry 98 Body Mass Index 20.3 Labs Results: 07/30/20 08:11 07/30/20 08:11 Medications Medications Current Medications Generic Name Dose Route Start Last Admin Trade Name Johnsonq PRN Reason Stop Dose Admin Acetaminophen 650 mg 07/22/20 20:32 07/31/20 16:06 Acetaminophen 325 Mg Tablet PO 650 mg Q6H PRN Administration Headache/Pain Mild Scale (1-3) Al Hydroxide/Mg Hydroxide 30 ml 07/22/20 20:32 07/25/20 18:12 Magnesium Hydrox/Alum Hydrox 30 Ml Oral.Susp PO 30 ml Q6H PRN Administration Heartburn/Nausea Aripiprazole 20 mg 07/26/20 09:00 08/01/20 09:22 Aripiprazole 20 Mg Tablet PO 20 mg DAILY LUCAS Administration Buprenorphine/Naloxone 1 tab 07/25/20 09:00 07/31/20 09:09 Buprenorphine/Naloxone 8/2 Mg Tab.Subl SUBLINGUAL Not Given DAILY LUCAS Bupropion HCl 75 mg 07/30/20 09:00 08/01/20 09:23 Bupropion Hcl 75 Mg Tablet PO 75 mg DAILY LUCAS Administration Clonidine HCl 0.1 mg 07/24/20 10:17 07/28/20 17:48 Clonidine Hcl 0.1 Mg Tablet PO 0.1 mg TID PRN Administration Opiate Withdrawal Protocol Diphenhydramine HCl 50 mg 07/22/20 21:39 Diphenhydramine Hcl 25 Mg Tablet PO Q6H PRN Muscle Spasm/dystonia Doxycycline Hyclate 100 mg 07/26/20 08:00 08/01/20 09:22 Doxycycline Hyclate 100 Mg Tablet PO 100 mg Q12H LUCAS Administration Gabapentin 600 mg 07/31/20 21:00 08/01/20 09:23 Gabapentin 600 Mg Tablet PO Not Given TID LUCAS Hydroxyzine HCl 25 mg 07/22/20 20:32 07/31/20 21:18 Hydroxyzine Hcl 25 Mg Tablet PO 25 mg BEDTIME PRN Administration Anxiety Lamotrigine 50 mg 07/29/20 12:30 08/01/20 09:22 Lamotrigine 25 Mg Tablet PO 50 mg DAILY LUCAS Administration [place] Carbonate 300 mg 07/25/20 21:00 08/01/20 09:22 [place] Carbonate 300 Mg Capsule PO 300 mg BID LUCAS Administration Magnesium Hydroxide 30 ml 07/22/20 20:32 Milk Of Magnesia 30 Ml Oral.Susp PO DAILY PRN Constipation Multivitamins/Minerals 1 tab 07/23/20 09:00 08/01/20 09:22 Multivitamin With Minerals Tablet PO 1 tab DAILY LUCAS Administration Trazodone HCl 100 mg 07/26/20 21:00 07/31/20 21:09 Trazodone Hcl 100 Mg Tablet PO 100 mg BEDTIME LUCAS Administration Vitamin D 25 mcg 07/23/20 09:00 08/01/20 09:22 Cholecalciferol (Vitamin D3) 25 Mcg Tablet PO 25 mcg DAILY LUCAS Administration Allergies Allergies Allergy/AdvReac Type Severity Reaction Status Date / Time amoxicillin [Amoxicillin] Allergy Unknown HIVES Verified 06/22/20 20:19 From Augmentin Allergy Unknown HIVES Uncoded 03/03/20 18:12 Assessment & Plan Impression: pt remains stable, good mood, sleeping, eating well and waiting for discharge. Has decided to stop Suboxone and would like to get on Vivitrol. Ambivalent about Gabapentin, saying it makes her drowsy. DX: (1) Bipolar 1 disorder: (2) Opioid dependence: stopping suboxone; maybe vivitrol (3) Cocaine dependence: -[facility] admission pending plan: DC suboxone leaving Gabapentin at 600mg TID; pt will refuse if wants to and discuss more w/ primary team Discuss Vivitrol w/ primary team no other changes Greater than 50% of the session was spent on counseling and/or coordination of care Reason for contiued inpatient stay Substantial Risk for: med/psych decompensation
[2020-08-01] MEDS: Gabapentin 600 MG TABLET PO ×2 (14:40→20:15)
[2020-08-01] MEDS: Acetaminophen 325 MG TABLET 650 MG PO ×2 (15:26→20:15)
[2020-08-01 16:58] VITALS: BP 103/56; PULSE 74; TEMP 37.1
[2020-08-01 18:40] VITALS: BP 117/68; PULSE 83
[2020-08-01] MEDS: cloNIDine HCL 0.1 MG TABLET PO (18:40)
[2020-08-01] MEDS: traZODone HCL 100 MG TABLET PO (20:16)
[2020-08-01] MEDS: hydrOXYzine HCL 25 MG TABLET PO (20:26)
[2020-08-01] MEDS: diphenhydrAMINE HCL 25 MG TABLET 50 MG PO (22:17)
[2020-08-02 06:00] VITALS: BP 107/53; PULSE 58; RESP 14; TEMP 36.3; O2SAT 100
[2020-08-02] MEDS: buPROPion HCL 75 MG TABLET PO (09:00)
[2020-08-02] MEDS: ARIPiprazole 20 MG TABLET PO (09:00)
[2020-08-02] MEDS: Lithium Carbonate 300 MG CAPSULE PO (09:00)
[2020-08-02] MEDS: Cholecalciferol (Vitamin D3) 25 MCG TABLET PO (09:01)
[2020-08-02] MEDS: lamoTRIgine 25 MG TABLET 50 MG PO (09:01)
[2020-08-02] MEDS: Gabapentin 600 MG TABLET PO ×3 (09:45→21:23)
[2020-08-02] MEDS: Acetaminophen 325 MG TABLET 650 MG PO ×3 (11:44→20:05)
[2020-08-02] MEDS: Buprenorphine/Naloxone 8/2 mg TAB.SUBL 1 TAB SUBLINGUAL (16:34)
--- NOTE | 2020-08-02 17:01 | HO.PSYCHPN ---
Subjective Subjective Date of Service: 08/02/20 Reason For Visit: Overdose, bipolar do Subjective Notes: Conditional Voluntary Interim History: Suboxone held over the weekend as pt is reconsidering Lissyitrol. Today, she asks for Suboxone to be [id number] plan to continue. Preparing for discharge-feeling overmedicated with Gabapentin-dosage decreased, [place] increased as level is subtherapeutic and Wellbutrin titrated. Pt feeling prepared to leave. Feeling some improvement with medications. Medication Compliance: Yes Side effects from medications: Yes (sedation) Attending Groups: No Review of Systems Review of Systems Yes all other systems are reviewed and are negative Skin/Breast: Reports other (thumb is healing.) Mental Status Exam Mental Status Exam Patient Appearance: Appropriate Patient Orientation: Person, Place, Time and Situation Level of Consciousness: Alert Patient Behavior: Talkative and Anxious Mood Description: Anxious and Apprehensive Affect Description: Anxious Patient Cognition Impaired: No Ability to Follow Directions: Good Speech Pattern: Spontaneous Speech Memory Description: Intact Hallucinations: None Delusions: Not Present Thought Process: Intact Thought Content: positive for [place] Depressive Symptoms: Increased Anxiety Judgement: Good Diagnostics Vital Signs (24Hr): Vital Signs - 24 hr 08/01/20 18:40 08/02/20 06:00 Temperature 97.4 F Pulse Rate 83 58 Respiratory Rate 14 Blood Pressure 117/68 107/53 L Pulse Oximetry 100 Body Mass Index 20.3 Labs Results: 07/30/20 08:11 07/30/20 08:11 Medications Medications Current Medications Generic Name Dose Route Start Last Admin Trade Name Freq PRN Reason Stop Dose Admin Acetaminophen 650 mg 08/01/20 19:50 08/02/20 15:58 Acetaminophen 325 Mg Tablet PO 650 mg Q4H PRN Administration Headache/Pain Mild Scale (1-3) Al Hydroxide/Mg Hydroxide 30 ml 07/22/20 20:32 07/25/20 18:12 Magnesium Hydrox/Alum Hydrox 30 Ml Oral.Susp PO 30 ml Q6H PRN Administration Heartburn/Nausea Aripiprazole 20 mg 07/26/20 09:00 08/02/20 09:00 Aripiprazole 20 Mg Tablet PO 20 mg DAILY LUCAS Administration Buprenorphine/Naloxone 1 tab 08/02/20 16:30 08/02/20 16:34 Buprenorphine/Naloxone 8/2 Mg Tab.Subl SUBLINGUAL 1 tab DAILY LUCAS Administration Bupropion HCl 100 mg 08/03/20 09:00 Bupropion Hcl 100 Mg Tablet PO DAILY [facility] Clonidine HCl 0.1 mg 07/24/20 10:17 08/01/20 18:40 Clonidine Hcl 0.1 Mg Tablet PO 0.1 mg TID PRN Administration Opiate Withdrawal Protocol Diphenhydramine HCl 50 mg 07/22/20 21:39 08/01/20 22:17 Diphenhydramine Hcl 25 Mg Tablet PO 50 mg Q6H PRN Administration Muscle Spasm/dystonia Gabapentin 300 mg 08/03/20 09:00 Gabapentin 300 Mg Capsule PO DAILY [facility] Hydroxyzine HCl 25 mg 07/22/20 20:32 08/01/20 20:26 Hydroxyzine Hcl 25 Mg Tablet PO 25 mg BEDTIME PRN Administration Anxiety Lamotrigine 50 mg 07/29/20 12:30 08/02/20 09:01 Lamotrigine 25 Mg Tablet PO 50 mg DAILY LUCAS Administration [place] Carbonate 300 mg 08/03/20 09:00 [place] Carbonate 300 Mg Tablet PO DAILY [facility] [place] Carbonate 600 mg 08/02/20 21:00 [place] Carbonate 300 Mg Capsule PO BEDTIME LUCAS Magnesium Hydroxide 30 ml 07/22/20 20:32 Milk Of Magnesia 30 Ml Oral.Susp PO DAILY PRN Constipation Multivitamins/Minerals 1 tab 07/23/20 09:00 08/02/20 09:00 Multivitamin With Minerals Tablet PO 1 tab DAILY LUCAS Administration Trazodone HCl 100 mg 07/26/20 21:00 08/01/20 20:16 Trazodone Hcl 100 Mg Tablet PO 100 mg BEDTIME LUCAS Administration Vitamin D 25 mcg 07/23/20 09:00 08/02/20 09:01 Cholecalciferol (Vitamin D3) 25 Mcg Tablet PO 25 mcg DAILY LUCAS Administration Allergies Allergies Allergy/AdvReac Type Severity Reaction Status Date / Time amoxicillin [Amoxicillin] Allergy Unknown HIVES Verified 06/22/20 20:19 From Augmentin Allergy Unknown HIVES Uncoded 03/03/20 18:12 Assessment & Plan Assessment & Plan (1) Bipolar 1 disorder: Status: Acute Code(s): F31.9 - Bipolar disorder, unspecified Assessment and Plan: -Increase Wellbutrin to 100 mg a.m. -Increase [place] to 300 mg a.m. 600 mg p.m. -Decrease Gabapentin to 300 mg a.m. 600 mg 1300 and 2100. (2) Opioid dependence: Status: Acute Code(s): F11.20 - Opioid dependence, uncomplicated Assessment and Plan: -Pt asks to re-start Suboxone. -Considering Vivitrol, but not currently (3) Cocaine dependence: Status: Acute Code(s): F14.20 - Cocaine dependence, uncomplicated Assessment and Plan: -[facility] transfer this week. Greater than 50% of the session was spent on counseling and/or coordination of care Reason for contiued inpatient stay Substantial Risk for: harm to self, inability to function and rapid decompensation
[2020-08-02 17:20] VITALS: BP 105/64; PULSE 86; TEMP 37.1
[2020-08-02] MEDS: Lithium Carbonate 300 MG CAPSULE 600 MG PO (22:26)
[2020-08-02] MEDS: traZODone HCL 100 MG TABLET PO (22:27)
[2020-08-02] MEDS: hydrOXYzine HCL 25 MG TABLET PO (22:34)
[2020-08-03 00:04] VITALS: BP 129/70; PULSE 68
[2020-08-03] MEDS: cloNIDine HCL 0.1 MG TABLET PO (00:04)
[2020-08-03] MEDS: Acetaminophen 325 MG TABLET 650 MG PO ×3 (00:05→15:57)
[2020-08-03] MEDS: diphenhydrAMINE HCL 25 MG TABLET 50 MG PO (00:05)
[2020-08-03 06:10] VITALS: BP 104/51; PULSE 61; RESP 16; TEMP 36.4; O2SAT 98
[2020-08-03] MEDS: Cholecalciferol (Vitamin D3) 25 MCG TABLET PO (08:28)
[2020-08-03] MEDS: ARIPiprazole 20 MG TABLET PO (08:28)
[2020-08-03] MEDS: Lithium Carbonate 300 MG TABLET PO (08:28)
[2020-08-03] MEDS: Buprenorphine/Naloxone 8/2 mg TAB.SUBL 1 TAB SUBLINGUAL (08:28)
[2020-08-03] MEDS: lamoTRIgine 25 MG TABLET 50 MG PO (08:28)
[2020-08-03] MEDS: buPROPion HCL 100 MG TABLET PO (08:28)
[2020-08-03] MEDS: Gabapentin 600 MG TABLET PO ×2 (13:14→20:31)
[2020-08-03] MEDS: OLANZapine 5 MG TABLET PO ×2 (13:21→20:26)
[2020-08-03 17:20] LABS: MANUAL DIFF FLAG NO
[2020-08-03 17:31] LABS: Basophils Percent Auto 0.3 % (0-2); Eosinophils Absolute Auto 0.2 X10*3/uL (0.0-0.4); Eosinophils Percent Auto 2.9 % (0-4); Hematocrit 35.7 % (37-47); Hemoglobin 11.6 g/dl (12.0-16.0); Imm Gran Abs Auto 0.08 X10*3/uL (0.00-0.03); Imm Gran Pct Auto 1.1 % (0.0-0.4); Lymphocytes Absolute Auto 2.5 X10*3/uL (1.2-4.9); Lymphocytes Percent Auto 35.2 % (20-40); Mean Corpuscular HGB Conc 32.5 g/dl (31.0-35.0); Mean Corpuscular Hemoglobin 24.8 pg (27.0-33.0); Mean Corpuscular Volume 76.4 fL (80-98); Mean Platelet Volume 12.2 fL (9.4-12.3); Monocytes Absolute Auto 0.8 X10*3/uL (0.1-1.2); Monocytes Percent Auto 10.4 % (2-11); Neutrophils Absolute Auto 3.6 X10*3/uL (2.0-8.3); Neutrophils Percent Auto 50.1 % (45-73); Platelet Count 266 X10*3/uL (160-400); Red Blood Count 4.67 X10*6/uL (4.20-5.50); Red Cell Distribution Width 16.8 % (11.0-16.0); White Blood Count 7.2 X10*3/uL (4.8-10.8)
--- NOTE | 2020-08-03 17:51 | P.PNPSI_ITS ---
Subjective Subjective Date of Service: 08/03/20 Reason For Visit: Overdose, bipolar do Subjective Notes: Conditional Voluntary Interim History: Asking for outright discharge to father's home. She was told after requesting she could not live with father as he is disabled, living with pt's grandmother and extended family. Reports craving. Discussed a return to Suboxone for a solid period of time which she agrees will help. Labile, struggling with current situation Review of regime and function of each agent. PRN Olanzapine added for breakthrough lability. Continues to wait for [place] CSS. Medication Compliance: Yes Side effects from medications: No Attending Groups: Yes Review of Systems Comments: Reports dental pain. Hospitalist consult requested. Reports behavioral changes Psychiatric: Reports anxiety, Reports behavioral changes, Reports depression, Reports difficulty concentrating, Reports irritability and Reports mood swings Mental Status Exam Mental Status Exam Patient Appearance: Appropriate Patient Orientation: Person, Place, Time and Situation Level of Consciousness: Awake and Alert Patient Behavior: Talkative, Passive, Aggressive, Restless, Anxious, Distractible, Good Eye Contact and Impulsive Mood Description: Labile Affect Description: Labile Patient Cognition Impaired: No Ability to Follow Directions: Good Speech Pattern: Spontaneous Speech Memory Description: Intact Hallucinations: None Delusions: Not Present Thought Process: Distracted and Rumination Thought Content: positive for Circumstantial and positive for Perseveration Depressive Symptoms: Increased Anxiety Judgement: Fair Diagnostics Vital Signs (24Hr): Vital Signs - 24 hr 08/03/20 00:04 08/03/20 06:10 Temperature 97.5 F Pulse Rate 68 61 Respiratory Rate 16 Blood Pressure 129/70 104/51 L Pulse Oximetry 98 Body Mass Index 20.3 Labs Results: 08/03/20 17:15 07/30/20 08:11 Labs: Laboratory Results - last 48 hr 08/03/20 17:15 WBC 7.2 RBC 4.67 Hgb 11.6 L Hct 35.7 L MCV 76.4 L MCH 24.8 L MCHC 32.5 RDW 16.8 H Plt Count 266 MPV 12.2 Immature Gran % (Auto) 1.1 H Neut % (Auto) 50.1 Lymph % (Auto) 35.2 [place] % (Auto) 10.4 Eos % (Auto) 2.9 Baso % (Auto) 0.3 Lymph # (Auto) 2.5 [place] # (Auto) 0.8 Eos # (Auto) 0.2 Baso # (Auto) 0.0 Abs Immat Gran (auto) 0.08 H Absolute Neuts (auto) 3.6 Absolute Nucleated RBC 0.000 Nucleated RBC % (auto) 0.0 Medications Medications Current Medications Generic Name Dose Route Start Last Admin Trade Name Freq PRN Reason Stop Dose Admin Acetaminophen 650 mg 08/01/20 19:50 08/03/20 15:57 Acetaminophen 325 Mg Tablet PO 650 mg Q4H PRN Administration Headache/Pain Mild Scale (1-3) Al Hydroxide/Mg Hydroxide 30 ml 07/22/20 20:32 07/25/20 18:12 Magnesium Hydrox/Alum Hydrox 30 Ml Oral.Susp PO 30 ml Q6H PRN Administration Heartburn/Nausea Aripiprazole 20 mg 07/26/20 09:00 08/03/20 08:28 Aripiprazole 20 Mg Tablet PO 20 mg DAILY LUCAS Administration Benzocaine 1 appl 08/02/20 20:13 08/03/20 16:40 Benzocaine 10 % Oral Gel 9 Gm Tube MUCOUS MEM 1 appl QID PRN Administration tooth pain Protocol Buprenorphine/Naloxone 1 tab 08/02/20 16:30 08/03/20 08:28 Buprenorphine/Naloxone 8/2 Mg Tab.Subl SUBLINGUAL 1 tab DAILY LUCAS Administration Bupropion HCl 100 mg 08/03/20 09:00 08/03/20 08:28 Bupropion Hcl 100 Mg Tablet PO 100 mg DAILY LCUAS Administration Clonidine HCl 0.1 mg 07/24/20 10:17 08/03/20 00:04 Clonidine Hcl 0.1 Mg Tablet PO 0.1 mg TID PRN Administration Opiate Withdrawal Protocol Diphenhydramine HCl 50 mg 07/22/20 21:39 08/03/20 00:05 Diphenhydramine Hcl 25 Mg Tablet PO 50 mg Q6H PRN Administration Muscle Spasm/dystonia Gabapentin 300 mg 08/03/20 09:00 08/03/20 08:47 Gabapentin 300 Mg Capsule PO Not Given DAILY LUCAS Gabapentin 600 mg 08/02/20 21:00 08/03/20 13:14 Gabapentin 600 Mg Tablet PO 600 mg DAILY@1300,2100 LUCAS Administration Hydroxyzine HCl 25 mg 07/22/20 20:32 08/02/20 22:34 Hydroxyzine Hcl 25 Mg Tablet PO 25 mg BEDTIME PRN Administration Anxiety Lamotrigine 75 mg 08/04/20 09:00 Lamotrigine 25 Mg Tablet PO DAILY LUCAS [place] Carbonate 300 mg 08/03/20 09:00 08/03/20 08:28 [place] Carbonate 300 Mg Tablet PO 300 mg DAILY LUCAS Administration [place] Carbonate 600 mg 08/02/20 21:00 08/02/20 22:26 [place] Carbonate 300 Mg Capsule PO 600 mg BEDTIME LUCAS Administration Magnesium Hydroxide 30 ml 07/22/20 20:32 Milk Of Magnesia 30 Ml Oral.Susp PO DAILY PRN Constipation Multivitamins/Minerals 1 tab 07/23/20 09:00 08/03/20 08:28 Multivitamin With Minerals Tablet PO 1 tab DAILY LUCAS Administration Olanzapine 5 mg 08/03/20 12:03 08/03/20 13:21 Olanzapine 5 Mg Tablet PO 5 mg Q4H PRN Administration agitation Trazodone HCl 100 mg 07/26/20 21:00 08/02/20 22:27 Trazodone Hcl 100 Mg Tablet PO 100 mg BEDTIME LUCAS Administration Vitamin D 25 mcg 07/23/20 09:00 08/03/20 08:28 Cholecalciferol (Vitamin D3) 25 Mcg Tablet PO 25 mcg DAILY LUCAS Administration Allergies Allergies Allergy/AdvReac Type Severity Reaction Status Date / Time amoxicillin [Amoxicillin] Allergy Unknown HIVES Verified 06/22/20 20:19 From Augmentin Allergy Unknown HIVES Uncoded 03/03/20 18:12 Assessment & Plan Assessment & Plan (1) Pain, dental: Status: Acute Code(s): K08.89 - Other specified disorders of teeth and supporting structures Assessment and Plan: -Consult with hospitalist (2) Cellulitis of thumb, right: Status: Acute Code(s): L03.011 - Cellulitis of right finger Assessment and Plan: -Resolved (3) Bipolar 1 disorder: Status: Acute Code(s): F31.9 - Bipolar disorder, unspecified Assessment and Plan: -Continue current plan (4) Opioid dependence: Status: Acute Code(s): F11.20 - Opioid dependence, uncomplicated Assessment and Plan: -Awaiting CSS [place] (5) Cocaine dependence: Status: Acute Code(s): F14.20 - Cocaine dependence, uncomplicated Assessment and Plan: -Awaiting CSS [place] Greater than 50% of the session was spent on counseling and/or coordination of care Reason for contiued inpatient stay Substantial Risk for: harm to self, inability to function and rapid decompens ation
[2020-08-03 18:00] VITALS: BP 120/64; PULSE 65; TEMP 36.6
--- NOTE | 2020-08-03 18:27 | P.CONIM_ITS ---
History of Present Illness Data of Consult Service Date: 08/03/20 Requesting physician: Leny Lemus Primary Care Provider: Unknown Physician HPI Reason for consult: Dental pain 30-year-old woman admitted to for psychiatric care. Patient reports left- sided dental pain for 4 days. She denies fever, chills, nausea, vomiting, diarrhea. She does report poor dentition and inability to receive dental care she is homeless. She has been medicated with Tylenol for pain. Review of Systems Review of Systems: Denies any recent fever chills or decrease in appetite respiratory denies any shortness of breath coverage production gastrointestinal denies any dysphagia abdominal pain nausea vomiting or diarrhea genitourinary denies any dysuria frequency or hematuria musculoskeletal denies any joint pain or swelling Left side neck pain all other systems reviewed are negative FOR[facility]LY [facility] Medical History Bipolar 1 disorder Cocaine dependence Interstitial cystitis Opioid dependence Pulmonary embolism Vaginal discharge Functional capacity: independent ambulation Family history: reviewed and not pertinent Surgical History H/O adenoidectomy Hx of tonsillectomy Social History Household Members: None Housing: Homeless Do you presently have visiting nurse or other home services: No Smoking Status: Light tobacco smoker Tobacco Type: Cigarette Packs Per Day: 0.4 Cigarettes Per Day: 8.0 Years Smoked: off and on Smoked in Last 30 Days: Yes Patient Interested in Nicotine Replacement: Yes Second Hand Smoke Exposure: Yes Use of substances other than those prescribed or required for medical reasons: Yes Substance Use Type: Crack/Cocaine and Opiates Substance Use Frequency: Chronic Longstanding Last Used Substance: Just Prior to Admission Currently Displaying Signs/Symptoms of Drug Intoxication Withdrawal: No Any prior treatment program specific to substance use: Yes Have you been hit, kicked, punched, or otherwise hurt by someone within the past year? If so, by whom?: No Do you feel safe in your current relationship?: No Current Relationship Is there a partner from a previous relationship who is making you feel unsafe now?: No Are you made to feel afraid or neglected: No Spiritual Healthcare Practices: none identified Yarsani Healthcare Practices: none identified Cultural Healthcare Practices: none identified Advance Directives: No Advance Directives Information Provided: Yes Advance Directives on File: No Do you have thoughts of harming others: None Do you have a plan to hurt others: No Plan Recently lost weight without trying: No service: No (Patient refused to be assessed by this video games storywriter) Sexual orientation: Patient refused to be assessed by this video games storywriter Meds Allergies Allergy/AdvReac Type Severity Reaction Status Date / Time amoxicillin [Amoxicillin] Allergy Unknown HIVES Verified 06/22/20 20:19 From Augmentin Allergy Unknown HIVES Uncoded 03/03/20 18:12 Active Medications: Current Medications Generic Name Dose Route Start Last Admin Trade Name Freq PRN Reason Stop Dose Admin Acetaminophen 650 mg 08/01/20 19:50 08/03/20 15:57 Acetaminophen 325 Mg Tablet PO 650 mg Q4H PRN Administration Headache/Pain Mild Scale (1-3) Acetaminophen 650 mg 08/03/20 18:30 Acetaminophen 325 Mg Tablet PO Q6H LUCAS Al Hydroxide/Mg Hydroxide 30 ml 07/22/20 20:32 07/25/20 18:12 Magnesium Hydrox/Alum Hydrox 30 Ml Oral.Susp PO 30 ml Q6H PRN Administration Heartburn/Nausea Aripiprazole 20 mg 07/26/20 09:00 08/03/20 08:28 Aripiprazole 20 Mg Tablet PO 20 mg DAILY LUCAS Administration Benzocaine 1 appl 08/02/20 20:13 08/03/20 16:40 Benzocaine 10 % Oral Gel 9 Gm Tube MUCOUS MEM 1 appl QID PRN Administration tooth pain Protocol Buprenorphine/Naloxone 1 tab 08/02/20 16:30 08/03/20 08:28 Buprenorphine/Naloxone 8/2 Mg Tab.Subl SUBLINGUAL 1 tab DAILY LUCAS Administration Bupropion HCl 100 mg 08/03/20 09:00 08/03/20 08:28 Bupropion Hcl 100 Mg Tablet PO 100 mg DAILY LUCAS Administration Clindamycin HCl 300 mg 08/03/20 18:30 Clindamycin Hcl 300 Mg Capsule PO 08/10/20 18:29 Q8H LUCAS Clonidine HCl 0.1 mg 07/24/20 10:17 08/03/20 00:04 Clonidine Hcl 0.1 Mg Tablet PO 0.1 mg TID PRN Administration Opiate Withdrawal Protocol Diphenhydramine HCl 50 mg 07/22/20 21:39 08/03/20 00:05 Diphenhydramine Hcl 25 Mg Tablet PO 50 mg Q6H PRN Administration Muscle Spasm/dystonia Gabapentin 300 mg 08/03/20 09:00 08/03/20 08:47 Gabapentin 300 Mg Capsule PO Not Given DAILY LUCAS Gabapentin 600 mg 08/02/20 21:00 08/03/20 13:14 Gabapentin 600 Mg Tablet PO 600 mg DAILY@1300,2100 LUCAS Administration Hydroxyzine HCl 25 mg 07/22/20 20:32 08/02/20 22:34 Hydroxyzine Hcl 25 Mg Tablet PO 25 mg BEDTIME PRN Administration Anxiety Lamotrigine 75 mg 08/04/20 09:00 Lamotrigine 25 Mg Tablet PO DAILY LUCAS [place] Carbonate 300 mg 08/03/20 09:00 08/03/20 08:28 [place] Carbon[place] 300 Mg Tablet PO 300 mg DAILY LUCAS Administration [place] Carbonate 600 mg 08/02/20 21:00 08/02/20 22:26 [place] Carbonate 300 Mg Capsule PO 600 mg BEDTIME LUCAS Administration Magnesium Hydroxide 30 ml 07/22/20 20:32 Milk Of Magnesia 30 Ml Oral.Susp PO DAILY PRN Constipation Multivitamins/Minerals 1 tab 07/23/20 09:00 08/03/20 08:28 Multivitamin With Minerals Tablet PO 1 tab DAILY LUCAS Administration Olanzapine 5 mg 08/03/20 12:03 08/03/20 13:21 Olanzapine 5 Mg Tablet PO 5 mg Q4H PRN Administration agitation Trazodone HCl 100 mg 07/26/20 21:00 08/02/20 22:27 Trazodone Hcl 100 Mg Tablet PO 100 mg BEDTIME LUCAS Administration Vitamin D 25 mcg 07/23/20 09:00 08/03/20 08:28 Cholecalciferol (Vitamin D3) 25 Mcg Tablet PO 25 mcg DAILY LUCAS Administration Physical Exam Vital Signs and Narrative: Vital Signs: Last Vital Signs Temp 97.5 F 08/03/20 06:10 Pulse 61 08/03/20 06:10 Resp 16 08/03/20 06:10 BP 104/51 L 08/03/20 06:10 Pulse Ox 98 08/03/20 06:10 Body Mass Index 20.3 Appearing in no acute distress head is normocephalic atraumatic eyes pupils are PERRLA sclera is anicteric mouth throat mucous membranes are intact and moist, very poor dentitian , no trauma to hard or soft palate neck left sided lymphadenopathy lung sounds are clear to auscultation Results Labs CBC and Chem 7: 08/03/20 17:15 07/30/20 08:11 Labs: Laboratory Results - last 24 hr 08/03/20 17:15 MCV 76.4 L MCH 24.8 L MCHC 32.5 RDW 16.8 H Plt Count 266 MPV 12.2 Immature Gran % (Auto) 1.1 H Neut % (Auto) 50.1 Lymph % (Auto) 35.2 [place] % (Auto) 10.4 Eos % (Auto) 2.9 Baso % (Auto) 0.3 Lymph # (Auto) 2.5 [place] # (Auto) 0.8 Eos # (Auto) 0.2 Baso # (Auto) 0.0 Abs Immat Gran (auto) 0.08 H Absolute Neuts (auto) 3.6 Absolute Nucleated RBC 0.000 Nucleated RBC % (auto) 0.0 Assessment and Plan (1) Pain, dental: Status: Acute 30-year-old woman admitted to for psychiatric care. She has complaints of dental pain. Unfortunately patient is homeless and has no access to dental care and has very poor dentition.She was noted to have some lymphadenopathy to the left side for neck no oral abscess erythema or drainage noted. Dental pain with some lymphadenopathy. Will start clindamycin, scheduled Tylenol for pain, warm compress. Will also obtain soft tissue neck CT to rule out abscess. If abscess found consider consulting Infectious Disease. All other care as per Psychiatry team.
--- NOTE | 2020-08-03 19:29 | PC.NURSE ---
Patient was seen by Trina Harris and orders were put in for additional labs and CT with contrast of the soft tissue of the neck. This casualty underwriter texted Dr. He to check on the possiblity of Tramadol for pain. Dr. He replied that Tramadol with interact with psych medications. Patient was informed.
[2020-08-03 20:20] LABS: Anion Gap 11 (12-20); Blood Urea Nitrogen 15 mg/dL (9-16); Calcium 9.1 mg/dL (8.4-10.2); Carbon Dioxide 26 mmol/L (22-29); Chloride 105 mmol/L (96-108); Creatinine Clr Calc Pharmacy 103.1; Estimated Glomerular Filt Rate > 60; Glucose Random 108 mg/dL (60-115); Potassium 4.7 mmol/L (3.3-5.1); Sodium 137 mmol/L (135-145)
[2020-08-03] MEDS: Lithium Carbonate 300 MG CAPSULE 600 MG PO (20:25)
[2020-08-03] MEDS: traZODone HCL 100 MG TABLET PO (20:26)
[2020-08-03] MEDS: hydrOXYzine HCL 25 MG TABLET PO (20:31)
[2020-08-03] MEDS: Ibuprofen 800 MG TABLET PO (20:45)
--- NOTE | 2020-08-03 23:49 | PC.NURSE ---
Patient was given her first dose of Cleocin which was 300 mg. This teletypewriter installer spoke with Dr. He regarding additional pain medications. He deferred to the psychiatrist. He did increase the Cleocin to 600 mg. The next dose will start the [address] Kim was notified about the need for additional pain relief. Ibuprofen 800 mg x 1 dose was ordered and given to the patient. Patient was given a warm compress as well. Patient was asleep by 2200 and in NAD.
[2020-08-04 06:00] VITALS: BP 118/56; PULSE 68; RESP 14; TEMP 36.1; O2SAT 98
[2020-08-04] MEDS: lamoTRIgine 25 MG TABLET 75 MG PO (09:13)
[2020-08-04] MEDS: Gabapentin 300 MG CAPSULE PO ×2 (09:14→09:25)
[2020-08-04] MEDS: Lithium Carbonate 300 MG TABLET PO (09:17)
[2020-08-04] MEDS: Acetaminophen 325 MG TABLET 650 MG PO ×2 (09:22→20:29)
[2020-08-04] MEDS: Cholecalciferol (Vitamin D3) 25 MCG TABLET PO (09:29)
[2020-08-04] MEDS: ARIPiprazole 20 MG TABLET PO (09:29)
[2020-08-04] MEDS: buPROPion HCL 100 MG TABLET PO (09:30)
[2020-08-04] MEDS: Gabapentin 600 MG TABLET PO ×2 (13:04→20:38)
[2020-08-04] MEDS: Ibuprofen 800 MG TABLET PO (13:06)
[2020-08-04 15:24] VITALS: BMI 20.2
--- NOTE | 2020-08-04 17:13 | HO.PSYCHPN ---
Subjective Subjective Date of Service: 08/04/20 Reason For Visit: Overdose, bipolar do Subjective Notes: Conditional Voluntary Interim History: Ambivalent about Suboxone-refused dosing this a.m. Discussed with pt this having an effect upon her discharge planning and CSS placement. Pt will discontinue. Requiring pain mgt for dental pain-Ibuprofen ordered-[place] dosage decreased temporarily. Declined CAT Scan to evaluate abscess. Mood is labile. Medication Compliance: Yes Side effects from medications: No Attending Groups: No Review of Systems Reports dental pain (r/o abscess-clindamycin rx) Reports behavioral changes Psychiatric: Reports anxiety, Reports behavioral changes and Reports irritability (pain-dental) Mental Status Exam Mental Status Exam Patient Appearance: Fatigued Patient Orientation: Person, Place, Time and Situation Level of Consciousness: Alert Patient Behavior: Talkative, Anxious, Resistive to Care, Fatigued and Good Eye Contact Mood Description: Withdrawn Affect Description: Flat Patient Cognition Impaired: No Ability to Follow Directions: Good Speech Pattern: Spontaneous Speech Memory Description: Intact Hallucinations: None Delusions: Not Present Thought Process: Distracted Thought Content: positive for [place] and positive for Circumstantial Depressive Symptoms: Increased Anxiety Judgement: Fair Diagnostics Vital Signs (24Hr): Vital Signs - 24 hr 08/03/20 18:00 08/04/20 06:00 Temperature 97.8 F 97 F Pulse Rate 65 68 Respiratory Rate 14 Blood Pressure 120/64 118/56 L Pulse Oximetry 98 Body Mass Index 20.2 Labs Results: 08/03/20 17:15 08/03/20 19:45 Labs: Laboratory Results - last 48 hr 08/03/20 08/03/20 17:15 19:45 WBC 7.2 RBC 4.67 Hgb 11.6 L Hct 35.7 L MCV 76.4 L MCH 24.8 L MCHC 32.5 RDW 16.8 H Plt Count 266 MPV 12.2 Immature Gran % (Auto) 1.1 H Neut % (Auto) 50.1 Lymph % (Auto) 35.2 [place] % (Auto) 10.4 Eos % (Auto) 2.9 Baso % (Auto) 0.3 Lymph # (Auto) 2.5 [place] # (Auto) 0.8 Eos # (Auto) 0.2 Baso # (Auto) 0.0 Abs Immat Gran (auto) 0.08 H Absolute Neuts (auto) 3.6 Absolute Nucleated RBC 0.000 Nucleated RBC % (auto) 0.0 Sodium 137 Potassium 4.7 Chloride 105 Carbon Dioxide 26 Anion Gap 11 L BUN 15 Creatinine 0.72 Estim Creat Clear Calc 103.1 Estimated GFR > 60 Random Glucose 108 Calcium 9.1 Medications Medications Current Medications Generic Name Dose Route Start Last Admin Trade Name Freq PRN Reason Stop Dose Admin Acetaminophen 650 mg 08/01/20 19:50 08/03/20 15:57 Acetaminophen 325 Mg Tablet PO 650 mg Q4H PRN Administration Headache/Pain Mild Scale (1-3) Acetaminophen 650 mg 08/03/20 18:30 08/04/20 09:22 Acetaminophen 325 Mg Tablet PO 650 mg Q6H LUCAS Administration Al Hydroxide/Mg Hydroxide 30 ml 07/22/20 20:32 07/25/20 18:12 Magnesium Hydrox/Alum Hydrox 30 Ml Oral.Susp PO 30 ml Q6H PRN Administration Heartburn/Nausea Aripiprazole 20 mg 07/26/20 09:00 08/04/20 09:29 Aripiprazole 20 Mg Tablet PO 20 mg DAILY LUCAS Administration Benzocaine 1 appl 08/02/20 20:13 08/03/20 16:40 Benzocaine 10 % Oral Gel 9 Gm Tube MUCOUS MEM 1 appl QID PRN Administration tooth pain Protocol Buprenorphine/Naloxone 1 tab 08/02/20 16:30 08/04/20 09:27 Buprenorphine/Naloxone 8/2 Mg Tab.Subl SUBLINGUAL Not Given DAILY LUCAS Bupropion HCl 100 mg 08/03/20 09:00 08/04/20 09:30 Bupropion Hcl 100 Mg Tablet PO 100 mg DAILY LUCAS Administration Clindamycin HCl 600 mg 08/04/20 00:00 08/04/20 15:53 Clindamycin Hcl 300 Mg Capsule PO 600 mg Q8H LUCAS Administration Clonidine HCl 0.1 mg 07/24/20 10:17 08/03/20 00:04 Clonidine Hcl 0.1 Mg Tablet PO 0.1 mg TID PRN Administration Opiate Withdrawal Protocol Diphenhydramine HCl 50 mg 07/22/20 21:39 08/03/20 00:05 Diphenhydramine Hcl 25 Mg Tablet PO 50 mg Q6H PRN Administration Muscle Spasm/dystonia Gabapentin 300 mg 08/03/20 09:00 08/04/20 09:25 Gabapentin 300 Mg Capsule PO 300 mg DAILY LUCAS Administration Gabapentin 600 mg 08/02/20 21:00 08/04/20 13:04 Gabapentin 600 Mg Tablet PO 600 mg DAILY@1300,2100 LUCAS Administration Hydroxyzine HCl 25 mg 07/22/20 20:32 08/03/20 20:31 Hydroxyzine Hcl 25 Mg Tablet PO 25 mg BEDTIME PRN Administration Anxiety Ibuprofen 800 mg 08/04/20 10:10 08/04/20 13:06 Ibuprofen 800 Mg Tablet PO 800 mg BID PRN Administration Pain, Mild (Pain Scale 1-3) Lamotrigine 75 mg 08/04/20 09:00 08/04/20 09:13 Lamotrigine 25 Mg Tablet PO 75 mg DAILY LUCAS Administration [place] Carbonate 300 mg 08/03/20 09:00 08/04/20 09:17 [place] Carbonate 300 Mg Tablet PO 300 mg DAILY LUCAS Administration [place] Carbonate 600 mg 08/02/20 21:00 08/03/20 20:25 [place] Carbonate 300 Mg Capsule PO 600 mg BEDTIME LUCAS Administration Magnesium Hydroxide 30 ml 07/22/20 20:32 Milk Of Magnesia 30 Ml Oral.Susp PO DAILY PRN Constipation Multivitamins/Minerals 1 tab 07/23/20 09:00 08/04/20 09:13 Multivitamin With Minerals Tablet PO 1 tab DAILY LUCAS Administration Olanzapine 5 mg 08/03/20 12:03 08/03/20 20:26 Olanzapine 5 Mg Tablet PO 5 mg Q4H PRN Administration agitation Trazodone HCl 100 mg 07/26/20 21:00 08/03/20 20:26 Trazodone Hcl 100 Mg Tablet PO 100 mg BEDTIME LUCAS Administration Vitamin D 25 mcg 07/23/20 09:00 08/04/20 09:29 Cholecalciferol (Vitamin D3) 25 Mcg Tablet PO 25 mcg DAILY LUCAS Administration Allergies Allergies Allergy/AdvReac Type Severity Reaction Status Date / Time amoxicillin [Amoxicillin] Allergy Unknown HIVES Verified 06/22/20 20:19 From Augmentin Allergy Unknown HIVES Uncoded 03/03/20 18:12 Assessment & Plan Assessment & Plan (1) Pain, dental: Status: Acute Code(s): K08.89 - Other specified disorders of teeth and supporting structures Assessment and Plan: -Clindamycin -Refusing CAT to assess abscess (2) Bipolar 1 disorder: Status: Acute Code(s): F31.9 - Bipolar disorder, unspecified Assessment and Plan: -Decrease [place] to 300 mg bid-using ibuprofen for pain mgt. Pt is difficult to draw labs and often refuses, thus this temporary intervention. (3) Opioid dependence: Status: Acute Code(s): F11.20 - Opioid dependence, uncomplicated Assessment and Plan: CSS application (4) Cocaine dependence: Status: Acute Code(s): F14.20 - Cocaine dependence, uncomplicated Assessment and Plan: CSS application Greater than 50% of the session was spent on counseling and/or coordination of care Reason for contiued inpatient stay Substantial Risk for: harm to self, inability to function and rapid decompensation
[2020-08-04 18:00] VITALS: BP 117/64; PULSE 94; TEMP 36.6
[2020-08-04] MEDS: Lithium Carbonate 300 MG CAPSULE PO (20:29)
[2020-08-04] MEDS: OLANZapine 5 MG TABLET PO (20:29)
[2020-08-04] MEDS: traZODone HCL 100 MG TABLET PO (20:29)
[2020-08-05 06:05] VITALS: BP 99/52; PULSE 64; RESP 16; TEMP 36.7; O2SAT 99
[2020-08-05] MEDS: Lithium Carbonate 300 MG CAPSULE PO (08:46)
[2020-08-05] MEDS: Cholecalciferol (Vitamin D3) 25 MCG TABLET PO (08:46)
[2020-08-05] MEDS: ARIPiprazole 20 MG TABLET PO (08:46)
[2020-08-05] MEDS: Acetaminophen 325 MG TABLET 650 MG PO ×2 (08:46→18:12)
[2020-08-05] MEDS: lamoTRIgine 25 MG TABLET 75 MG PO (08:46)
[2020-08-05] MEDS: buPROPion HCL 100 MG TABLET PO (08:46)
[2020-08-05] MEDS: Gabapentin 600 MG TABLET PO ×2 (13:00→20:13)
--- NOTE | 2020-08-05 14:59 | P.PNPSI_ITS ---
Documented by User: Lenyyaniv Lemus, SWAGER OPERATOR 08/05/20 15:31 Subjective Subjective Date of Service: 08/05/20 Reason For Visit: Overdose, bipolar do Subjective Notes: Conditional Voluntary Interim History: Pt reports dental pain is resolved. Asks to discontinue Ibuprofen and resume previous [place] dosage with use of Tylenol prn for pain. Continues to decline CAT to detect possible absess as she believes she can only have blood drawn in her feet. Review of regime/efficacy. Pt finding Wellbutrin and [place] useful-Lamictal titration continues. Gabapentin may not be needed at some point she reports. She reports she is prepared for CSS. Suboxone has been discontinued-She states she would need to awaken at 0600 to receive Suboxone in both programs and does not want that responsibility. Discussed cravings, ambivalence, but attempting to stay on track with her recovery. Considering Vivitrol. Medication Compliance: Yes Side effects from medications: No Attending Groups: No Review of Systems Reports dental pain (resolved) Psychiatric: Reports anxiety and Reports mood swings Mental Status Exam Mental Status Exam Patient Appearance: Appropriate Patient Orientation: Person, Place, Time and Situation Level of Consciousness: Awake, Restless and Alert Patient Behavior: Talkative, Restless, Anxious, Distractible, Good Eye Contact and Impulsive Mood Description: Labile Affect Description: Labile Patient Cognition Impaired: No Ability to Follow Directions: Good Speech Pattern: Perseverating and Spontaneous Speech Memory Description: Episodic Impaired Hallucinations: None Delusions: Not Present Thought Process: Distracted Thought Content: positive for [place], positive for Circumstantial and positive for Perseveration Depressive Symptoms: Increased Anxiety, Diff. Making Decisions and Increased Irritability Abnormal Motor Activity Signs and Symptoms: Restlessness Judgement: Fair Diagnostics Vital Signs (24Hr): Vital Signs - 24 hr 08/04/20 18:00 08/05/20 06:05 Temperature 97.9 F 98.1 F Pulse Rate 94 64 Respiratory Rate 16 Blood Pressure 117/64 99/52 L Pulse Oximetry 99 Body Mass Index 20.2 Labs Results: 08/03/20 17:15 08/03/20 19:45 Labs: Laboratory Results - last 48 hr 08/03/20 08/03/20 17:15 19:45 WBC 7.2 RBC 4.67 Hgb 11.6 L Hct 35.7 L MCV 76.4 L MCH 24.8 L MCHC 32.5 RDW 16.8 H Plt Count 266 MPV 12.2 Immature Gran % (Auto) 1.1 H Neut % (Auto) 50.1 Lymph % (Auto) 35.2 [place] % (Auto) 10.4 Eos % (Auto) 2.9 Baso % (Auto) 0.3 Lymph # (Auto) 2.5 [place] # (Auto) 0.8 Eos # (Auto) 0.2 Baso # (Auto) 0.0 Abs Immat Gran (auto) 0.08 H Absolute Neuts (auto) 3.6 Absolute Nucleated RBC 0.000 Nucleated RBC % (auto) 0.0 Sodium 137 Potassium 4.7 Chloride 105 Carbon Dioxide 26 Anion Gap 11 L BUN 15 Creatinine 0.72 Estim Creat Clear Calc 103.1 Estimated GFR > 60 Random Glucose 108 Calcium 9.1 Medications Medications Current Medications Generic Name Dose Route Start Last Admin Trade Name Freq PRN Reason Stop Dose Admin Acetaminophen 650 mg 08/01/20 19:50 08/04/20 20:29 Acetaminophen 325 Mg Tablet PO 650 mg Q4H PRN Administration Headache/Pain Mild Scale (1-3) Acetaminophen 650 mg 08/03/20 18:30 08/05/20 13:01 Acetaminophen 325 Mg Tablet PO Not Given Q6H LUCAS Al Hydroxide/Mg Hydroxide 30 ml 07/22/20 20:32 07/25/20 18:12 Magnesium Hydrox/Alum Hydrox 30 Ml Oral.Susp PO 30 ml Q6H PRN Administration Heartburn/Nausea Aripiprazole 20 mg 07/26/20 09:00 08/05/20 08:46 Aripiprazole 20 Mg Tablet PO 20 mg DAILY LUCAS Administration Benzocaine 1 appl 08/02/20 20:13 08/03/20 16:40 Benzocaine 10 % Oral Gel 9 Gm Tube MUCOUS MEM 1 appl QID PRN Administration tooth pain Protocol Bupropion HCl 100 mg 08/03/20 09:00 08/05/20 08:46 Bupropion Hcl 100 Mg Tablet PO 100 mg DAILY LUCAS Administration Clindamycin HCl 600 mg 08/04/20 00:00 08/05/20 08:45 Clindamycin Hcl 300 Mg Capsule PO 600 mg Q8H LUCAS Administration Clonidine HCl 0.1 mg 07/24/20 10:17 08/03/20 00:04 Clonidine Hcl 0.1 Mg Tablet PO 0.1 mg TID PRN Administration Opiate Withdrawal Protocol Diphenhydramine HCl 50 mg 07/22/20 21:39 08/03/20 00:05 Diphenhydramine Hcl 25 Mg Tablet PO 50 mg Q6H PRN Administration Muscle Spasm/dystonia Gabapentin 300 mg 08/03/20 09:00 08/04/20 09:25 Gabapentin 300 Mg Capsule PO 300 mg DAILY LUCAS Administration Gabapentin 600 mg 08/02/20 21:00 08/05/20 13:00 Gabapentin 600 Mg Tablet PO 600 mg DAILY@1300,2100 LUCAS Administration Hydroxyzine HCl 25 mg 07/22/20 20:32 08/03/20 20:31 Hydroxyzine Hcl 25 Mg Tablet PO 25 mg BEDTIME PRN Administration Anxiety Ibuprofen 800 mg 08/04/20 10:10 08/04/20 13:06 Ibuprofen 800 Mg Tablet PO 800 mg BID PRN Administration Pain, Mild (Pain Scale 1-3) Lamotrigine 75 mg 08/04/20 09:00 08/05/20 08:46 Lamotrigine 25 Mg Tablet PO 75 mg DAILY LUCAS Administration [place] Carbonate 300 mg 08/04/20 21:00 08/05/20 08:46 [place] Carbonate 300 Mg Capsule PO 300 mg BID LUCAS Administration Magnesium Hydroxide 30 ml 07/22/20 20:32 Milk Of Magnesia 30 Ml Oral.Susp PO DAILY PRN Constipation Multivitamins/Minerals 1 tab 07/23/20 09:00 08/05/20 08:46 Multivitamin With Minerals Tablet PO 1 tab DAILY LUCAS Administration Olanzapine 5 mg 08/03/20 12:03 08/04/20 20:29 Olanzapine 5 Mg Tablet PO 5 mg Q4H PRN Administration agitation Trazodone HCl 100 mg 07/26/20 21:00 08/04/20 20:29 Trazodone Hcl 100 Mg Tablet PO 100 mg BEDTIME LUCAS Administration Vitamin D 25 mcg 07/23/20 09:00 08/05/20 08:46 Cholecalciferol (Vitamin D3) 25 Mcg Tablet PO 25 mcg DAILY LUCAS Administration Allergies Allergies Allergy/AdvReac Type Severity Reaction Status Date / Time amoxicillin [Amoxicillin] Allergy Unknown HIVES Verified 06/22/20 20:19 From Augmentin Allergy Unknown HIVES Uncoded 03/03/20 18:12 Assessment & Plan Assessment & Plan (1) Pain, dental: Status: Acute Code(s): K08.89 - Other specified disorders of teeth and supporting structures Assessment and Plan: -Resolved per pt report (2) Bipolar 1 disorder: Status: Acute Code(s): F31.9 - Bipolar disorder, unspecified Assessment and Plan: Return [place] to 300 mg am. 600 mg hs as she has stopped using ibuprofen for dental pain (3) Opioid dependence: Status: Acute Code(s): F11.20 - Opioid dependence, uncomplicated Assessment and Plan: CSS pending Considering Vivitrol (4) Cocaine dependence: Status: Acute Code(s): F14.20 - Cocaine dependence, uncomplicated Greater than 50% of the session was spent on counseling and/or coordination of care Reason for contiued inpatient stay Substantial Risk for: harm to self and rapid decompensation Documented by User: Daniel Medley MD 08/06/20 19:38 Subjective Subjective Date of Service: 08/06/20 Reason For Visit: Overdose, bipolar do Diagnostics Labs Results: 08/03/20 17:15 08/03/20 19:45
[2020-08-05 18:00] VITALS: BP 136/85; PULSE 89; TEMP 37.1
[2020-08-05 20:56] VITALS: BP 138/67; PULSE 82
[2020-08-05] MEDS: Lithium Carbonate 300 MG CAPSULE 600 MG PO (20:56)
[2020-08-05] MEDS: traZODone HCL 100 MG TABLET PO (20:56)
[2020-08-05] MEDS: hydrOXYzine HCL 25 MG TABLET PO (20:56)
[2020-08-05] MEDS: cloNIDine HCL 0.1 MG TABLET PO (20:56)
[2020-08-06 05:25] VITALS: BP 107/62; PULSE 79; RESP 18; TEMP 36.7; O2SAT 98
[2020-08-06] MEDS: Gabapentin 300 MG CAPSULE PO (09:39)
[2020-08-06] MEDS: buPROPion HCL 100 MG TABLET PO (09:40)
[2020-08-06] MEDS: Lithium Carbonate 300 MG CAPSULE PO (09:40)
[2020-08-06] MEDS: ARIPiprazole 20 MG TABLET PO (09:41)
[2020-08-06] MEDS: Cholecalciferol (Vitamin D3) 25 MCG TABLET PO (09:41)
[2020-08-06] MEDS: OLANZapine 5 MG TABLET PO (09:54)
[2020-08-06] MEDS: lamoTRIgine 25 MG TABLET 75 MG PO (10:40)
[2020-08-06] MEDS: Acetaminophen 325 MG TABLET 650 MG PO ×2 (12:06→18:29)
[2020-08-06] MEDS: Gabapentin 600 MG TABLET PO ×2 (12:56→19:58)
--- NOTE | 2020-08-06 14:44 | P.PNPSI_ITS ---
Subjective Subjective Date of Service: 08/06/20 Reason For Visit: Overdose, bipolar do Subjective Notes: Conditional Voluntary Interim History: Preeti was focused on not sleeping. She is medication seeking and has difficulty letting it go. She was offered a small increase in trazodone and this was acceptable to her. Medication Compliance: Yes Side effects from medications: No Attending Groups: Intermittent Review of Systems Acute medical concerns: No Medical Review of Systems: unchanged Review of Systems Review of Systems Denies any recent fever chills or decrease in appetite respiratory denies any shortness of breath coverage production gastrointestinal denies any dysphagia abdominal pain nausea vomiting or diarrhea genitourinary denies any dysuria frequency or hematuria musculoskeletal denies any joint pain or swelling Left side neck pain all other systems reviewed are negative Yes all other systems are reviewed and are negative Reports dental pain (resolved) Musculoskeletal: Reports numbness (fingers) Skin/Breast: Reports swelling (R thumb), Reports nail changes (thumb infection- doxycycline rx.), Reports rash (reports care home, prior to antibiotic use) and Reports other (thumb is healing.) Reports behavioral changes and Reports numbness (fingers) Psychiatric: Reports anxiety, Reports behavioral changes, Reports depression, Reports difficulty concentrating, Reports irritability (pain-dental), Reports mood swings and Reports other (lability of mood) Mental Status Exam Mental Status Exam Patient Appearance: Appropriate Patient Orientation: Person, Place, Time and Situation Level of Consciousness: Awake, Restless and Alert Patient Behavior: Talkative, Restless, Anxious, Distractible, Good Eye Contact and Impulsive Mood Description: Labile Affect Description: Labile Patient Cognition Impaired: No Ability to Follow Directions: Good Speech Pattern: Perseverating and Spontaneous Speech Memory Description: Episodic Impaired Thought Content: negative for Suicidal Ideation and negative for Homicidal Ideation Judgement: Fair Diagnostics Vital Signs (24Hr): Vital Signs - 24 hr 08/05/20 18:00 08/05/20 20:56 08/06/20 05:25 Temperature 98.8 F 98.1 F Pulse Rate 89 82 79 Respiratory Rate 18 Blood Pressure 136/85 138/67 107/62 Pulse Oximetry 98 Body Mass Index 20.2 Labs Results: 08/03/20 17:15 08/03/20 19:45 Medications Medications Current Medications Generic Name Dose Route Start Last Admin Trade Name Freq PRN Reason Stop Dose Admin Acetaminophen 650 mg 08/03/20 18:30 08/06/20 12:06 Acetaminophen 325 Mg Tablet PO 650 mg Q6H LUCAS Administration Al Hydroxide/Mg Hydroxide 30 ml 07/22/20 20:32 07/25/20 18:12 Magnesium Hydrox/Alum Hydrox 30 Ml Oral.Susp PO 30 ml Q6H PRN Administration Heartburn/Nausea Aripiprazole 20 mg 07/26/20 09:00 08/06/20 09:41 Aripiprazole 20 Mg Tablet PO 20 mg DAILY LUCAS Administration Benzocaine 1 appl 08/02/20 20:13 08/03/20 16:40 Benzocaine 10 % Oral Gel 9 Gm Tube MUCOUS MEM 1 appl QID PRN Administration tooth pain Protocol Bupropion HCl 100 mg 08/03/20 09:00 08/06/20 09:40 Bupropion Hcl 100 Mg Tablet PO 100 mg DAILY LUCAS Administration Clindamycin HCl 600 mg 08/04/20 00:00 08/06/20 09:38 Clindamycin Hcl 300 Mg Capsule PO 600 mg Q8H LUCAS Administration Clonidine HCl 0.1 mg 07/24/20 10:17 08/05/20 20:56 Clonidine Hcl 0.1 Mg Tablet PO 0.1 mg TID PRN Administration Opiate Withdrawal Protocol Diphenhydramine HCl 50 mg 07/22/20 21:39 08/03/20 00:05 Diphenhydramine Hcl 25 Mg Tablet PO 50 mg Q6H PRN Administration Muscle Spasm/dystonia Gabapentin 300 mg 08/03/20 09:00 08/06/20 09:39 Gabapentin 300 Mg Capsule PO 300 mg DAILY LUCAS Administration Gabapentin 600 mg 08/02/20 21:00 08/06/20 12:56 Gabapentin 600 Mg Tablet PO 600 mg DAILY@1300,2100 LUCAS Administration Hydroxyzine HCl 25 mg 07/22/20 20:32 08/05/20 20:56 Hydroxyzine Hcl 25 Mg Tablet PO 25 mg BEDTIME PRN Administration Anxiety Lamotrigine 75 mg 08/04/20 09:00 08/06/20 10:40 Lamotrigine 25 Mg Tablet PO 75 mg DAILY LUCAS Administration [place] Carbonate 600 mg 08/05/20 21:00 08/05/20 20:56 [place] Carbonate 300 Mg Capsule PO 600 mg BEDTIME LUCAS Administration [place] Carbonate 300 mg 08/06/20 09:00 08/06/20 09:40 [place] Carbonate 300 Mg Capsule PO 300 mg DAILY LUCAS Administration Magnesium Hydroxide 30 ml 07/22/20 20:32 Milk Of Magnesia 30 Ml Oral.Susp PO DAILY PRN Constipation Multivitamins/Minerals 1 tab 07/23/20 09:00 08/06/20 09:40 Multivitamin With Minerals Tablet PO 1 tab DAILY LUCAS Administration Olanzapine 5 mg 08/03/20 12:03 08/06/20 09:54 Olanzapine 5 Mg Tablet PO 5 mg Q4H PRN Administration agitation Trazodone HCl 100 mg 07/26/20 21:00 08/05/20 20:56 Trazodone Hcl 100 Mg Tablet PO 100 mg BEDTIME LUCAS Administration Vitamin D 25 mcg 07/23/20 09:00 08/06/20 09:41 Cholecalciferol (Vitamin D3) 25 Mcg Tablet PO 25 mcg DAILY LUCAS Administration Allergies Allergies Allergy/AdvReac Type Severity Reaction Status Date / Time amoxicillin [Amoxicillin] Allergy Unknown HIVES Verified 06/22/20 20:19 From Augmentin Allergy Unknown HIVES Uncoded 03/03/20 18:12 Assessment & Plan Assessment & Plan (1) Pain, dental: Status: Acute Code(s): K08.89 - Other specified disorders of teeth and supporting structures Assessment and Plan: -Resolved per pt report (2) Bipolar 1 disorder: Status: Acute Code(s): F31.9 - Bipolar disorder, unspecified Assessment and Plan: Return [place] to 300 mg am. 600 mg hs as she has stopped using ibuprofen for dental pain (3) Opioid dependence: Status: Acute Code(s): F11.20 - Opioid dependence, uncomplicated Assessment and Plan: CSS pending Considering Vivitrol On suboxone (4) Cocaine dependence: Status: Acute Code(s): F14.20 - Cocaine dependence, uncomplicated Greater than 50% of the session was spent on counseling and/or coordination of care Reason for contiued inpatient stay Substantial Risk for: harm to self
[2020-08-06 18:00] VITALS: BP 137/68; PULSE 84; TEMP 36.8
[2020-08-06] MEDS: Lithium Carbonate 300 MG CAPSULE 600 MG PO (21:49)
[2020-08-06] MEDS: traZODone HCL 50 MG TABLET 150 MG PO (21:49)
[2020-08-07 06:00] VITALS: BP 112/59; PULSE 71; RESP 14; TEMP 36.4; O2SAT 98
[2020-08-07] MEDS: Acetaminophen 325 MG TABLET 650 MG PO (08:45)
[2020-08-07] MEDS: buPROPion HCL 100 MG TABLET PO (08:46)
[2020-08-07] MEDS: ARIPiprazole 20 MG TABLET PO (08:46)
[2020-08-07] MEDS: Cholecalciferol (Vitamin D3) 25 MCG TABLET PO (08:46)
[2020-08-07] MEDS: Lithium Carbonate 300 MG CAPSULE PO (08:46)
[2020-08-07] MEDS: Gabapentin 300 MG CAPSULE PO (08:46)
[2020-08-07] MEDS: lamoTRIgine 25 MG TABLET 75 MG PO (08:47)
[2020-08-07] MEDS: OLANZapine 5 MG TABLET PO ×3 (09:21→18:17)
[2020-08-07] MEDS: Gabapentin 600 MG TABLET PO ×2 (13:11→21:09)
[2020-08-07 14:16] VITALS: BP 119/65; PULSE 91
[2020-08-07] MEDS: cloNIDine HCL 0.1 MG TABLET PO (14:16)
--- NOTE | 2020-08-07 14:18 | P.PNPSI_ITS ---
Subjective Subjective Date of Service: 08/07/20 Reason For Visit: Overdose, bipolar do Subjective Notes: Conditional Voluntary Interim History: Preeti was still focused on not sleeping. She is medication seeking and has difficulty letting it go. She requested and increase in vistaril which was ordered. She had no other complaints. She is waiting for [facility] Medication Compliance: Yes Side effects from medications: No Attending Groups: Intermittent Review of Systems Review of Systems Denies any recent fever chills or decrease in appetite respiratory denies any shortness of breath coverage production gastrointestinal denies any dysphagia abdominal pain nausea vomiting or diarrhea genitourinary denies any dysuria frequency or hematuria musculoskeletal denies any joint pain or swelling Left side neck pain all other systems reviewed are negative Yes all other systems are reviewed and are negative Reports dental pain (resolved) Musculoskeletal: Reports numbness (fingers) Skin/Breast: Reports swelling (R thumb), Reports nail changes (thumb infection- doxycycline rx.), Reports rash (reports intermediate frame tender, prior to antibiotic use) and Reports other (thumb is healing.) Reports behavioral changes and Reports numbness (fingers) Psychiatric: Reports anxiety, Reports behavioral changes, Reports depression, Reports difficulty concentrating, Reports irritability (pain-dental), Reports mood swings and Reports other (lability of mood) Mental Status Exam Mental Status Exam Patient Appearance: Appropriate Patient Orientation: Person, Place, Time and Situation Level of Consciousness: Awake, Restless and Alert Patient Behavior: Talkative, Restless, Anxious, Distractible, Good Eye Contact and Impulsive Mood Description: Labile Affect Description: Labile Patient Cognition Impaired: No Ability to Follow Directions: Good Speech Pattern: Perseverating and Spontaneous Speech Memory Description: Episodic Impaired Thought Content: negative for Suicidal Ideation and negative for Homicidal Ideation Diagnostics Vital Signs (24Hr): Vital Signs - 24 hr 08/06/20 18:00 08/07/20 06:00 08/07/20 14:16 Temperature 98.3 F 97.6 F Pulse Rate 84 71 91 Respiratory Rate 14 Blood Pressure 137/68 112/59 L 119/65 Pulse Oximetry 98 Body Mass Index 20.2 Labs Results: 08/03/20 17:15 08/03/20 19:45 Medications Medications Current Medications Generic Name Dose Route Start Last Admin Trade Name Freq PRN Reason Stop Dose Admin Acetaminophen 650 mg 08/03/20 18:30 08/07/20 08:45 Acetaminophen 325 Mg Tablet PO 650 mg Q6H LUCAS Administration Al Hydroxide/Mg Hydroxide 30 ml 07/22/20 20:32 07/25/20 18:12 Magnesium Hydrox/Alum Hydrox 30 Ml Oral.Susp PO 30 ml Q6H PRN Administration Heartburn/Nausea Aripiprazole 20 mg 07/26/20 09:00 08/07/20 08:46 Aripiprazole 20 Mg Tablet PO 20 mg DAILY LUCAS Administration Benzocaine 1 appl 08/02/20 20:13 08/03/20 16:40 Benzocaine 10 % Oral Gel 9 Gm Tube MUCOUS MEM 1 appl QID PRN Administration tooth pain Protocol Bupropion HCl 100 mg 08/03/20 09:00 08/07/20 08:46 Bupropion Hcl 100 Mg Tablet PO 100 mg DAILY LUCAS Administration Clindamycin HCl 600 mg 08/04/20 00:00 08/07/20 08:46 Clindamycin Hcl 300 Mg Capsule PO 600 mg Q8H LUCAS Administration Clonidine HCl 0.1 mg 07/24/20 10:17 08/07/20 14:16 Clonidine Hcl 0.1 Mg Tablet PO 0.1 mg TID PRN Administration Opiate Withdrawal Protocol Diphenhydramine HCl 50 mg 07/22/20 21:39 08/03/20 00:05 Diphenhydramine Hcl 25 Mg Tablet PO 50 mg Q6H PRN Administration Muscle Spasm/dystonia Gabapentin 300 mg 08/03/20 09:00 08/07/20 08:46 Gabapentin 300 Mg Capsule PO 300 mg DAILY LUCAS Administration Gabapentin 600 mg 08/02/20 21:00 08/07/20 13:11 Gabapentin 600 Mg Tablet PO 600 mg DAILY@1300,2100 LUCAS Administration Hydroxyzine HCl 100 mg 08/07/20 10:31 Hydroxyzine Hcl 25 Mg Tablet PO BEDTIME PRN Anxiety Lamotrigine 75 mg 08/04/20 09:00 08/07/20 08:47 Lamotrigine 25 Mg Tablet PO 75 mg DAILY LUCAS Administration [place] Carbonate 600 mg 08/05/20 21:00 08/06/20 21:49 [place] Carbonate 300 Mg Capsule PO 600 mg BEDTIME LUCAS Administration [place] Carbonate 300 mg 08/06/20 09:00 08/07/20 08:46 [place] Carbonate 300 Mg Capsule PO 300 mg DAILY LUCAS Administration Magnesium Hydroxide 30 ml 07/22/20 20:32 Milk Of Magnesia 30 Ml Oral.Susp PO DAILY PRN Constipation Multivitamins/Minerals 1 tab 07/23/20 09:00 08/07/20 08:46 Multivitamin With Minerals Tablet PO 1 tab DAILY LUCAS Administration Olanzapine 5 mg 08/03/20 12:03 08/07/20 14:16 Olanzapine 5 Mg Tablet PO 5 mg Q4H PRN Administration agitation Trazodone HCl 150 mg 08/06/20 21:00 08/06/20 21:49 Trazodone Hcl 50 Mg Tablet PO 150 mg BEDTIME LUCAS Administration Vitamin D 25 mcg 07/23/20 09:00 08/07/20 08:46 Cholecalciferol (Vitamin D3) 25 Mcg Tablet PO 25 mcg DAILY LUCAS Administration Allergies Allergies Allergy/AdvReac Type Severity Reaction Status Date / Time amoxicillin [Amoxicillin] Allergy Unknown HIVES Verified 06/22/20 20:19 From Augmentin Allergy Unknown HIVES Uncoded 03/03/20 18:12 Assessment & Plan Assessment & Plan (1) Pain, dental: Status: Acute Code(s): K08.89 - Other specified disorders of teeth and supporting structures Assessment and Plan: -Resolved per pt report (2) Bipolar 1 disorder: Status: Acute Code(s): F31.9 - Bipolar disorder, unspecified Assessment and Plan: Return [place] to 300 mg am. 600 mg hs as she has stopped using ibuprofen for dental pain (3) Opioid dependence: Status: Acute Code(s): F11.20 - Opioid dependence, uncomplicated Assessment and Plan: CSS pending Considering Vivitrol On suboxone (4) Cocaine dependence: Status: Acute Code(s): F14.20 - Cocaine dependence, uncomplicated Greater than 50% of the session was spent on counseling and/or coordination of care Patient educated on: diagnosis, medication risk/benefits and substance abuse Informed Consent: further education needed Reason for contiued inpatient stay Substantial Risk for: inability to function
[2020-08-07 16:56] VITALS: BP 139/76; PULSE 82; TEMP 36.3
[2020-08-07] MEDS: diphenhydrAMINE HCL 25 MG TABLET 50 MG PO (17:48)
[2020-08-07] MEDS: hydrOXYzine HCL 25 MG TABLET 100 MG PO (21:07)
[2020-08-07] MEDS: Lithium Carbonate 300 MG CAPSULE 600 MG PO (21:08)
[2020-08-07] MEDS: traZODone HCL 50 MG TABLET 150 MG PO (21:09)
[2020-08-08 06:05] VITALS: BP 132/71; PULSE 76; RESP 18; TEMP 36.7; O2SAT 99
[2020-08-08] MEDS: Acetaminophen 325 MG TABLET 650 MG PO (08:33)
[2020-08-08] MEDS: lamoTRIgine 25 MG TABLET 75 MG PO (08:34)
[2020-08-08] MEDS: Cholecalciferol (Vitamin D3) 25 MCG TABLET PO (08:35)
[2020-08-08] MEDS: Lithium Carbonate 300 MG CAPSULE PO (08:35)
[2020-08-08] MEDS: ARIPiprazole 20 MG TABLET PO (08:35)
[2020-08-08] MEDS: buPROPion HCL 100 MG TABLET PO (08:35)
[2020-08-08] MEDS: Gabapentin 600 MG TABLET PO ×2 (13:15→21:15)
[2020-08-08] MEDS: OLANZapine 5 MG TABLET PO ×2 (16:42→23:20)
--- NOTE | 2020-08-08 16:51 | HO.PSYCHPN ---
Subjective Subjective Date of Service: 08/08/20 Reason For Visit: Overdose, bipolar do Subjective Notes: Conditional Voluntary Interim History: Weekend team reports increases of Trazodone, Vistaril. Pt said to be med seeking. Reports she is able to sleep, but not as long as she wants to sleep. Today, she was denied admission with [facility] and declined [facility] as she reports she does not want to be awakened at 6am daily. Appears agitated. Wellbutrin discontinued, [place]/Abilify increased. Using prn Olanzapine. Discussed with pt discharge plans and she does not have a clear idea. Discussed a friend in [place], [place] [phone] who would be a support if she were to go to residential treatment in [place], he declines her request to live with him. She reports craving. She asks for discharge. Denies attending groups as well. Medication Compliance: Yes Side effects from medications: Yes (?Wellbutrin SE of agitation) Attending Groups: No Review of Systems Constitutional: Reports other (refusal of CAT Scan of her neck ordered last week and attempted x 3) Reports behavioral changes Psychiatric: Reports anxiety, Reports behavioral changes, Reports depression, Reports difficulty concentrating, Reports irritability and Reports mood swings Mental Status Exam Mental Status Exam Patient Appearance: Appropriate Patient Orientation: Person, Place, Time and Situation Level of Consciousness: Awake and Alert Patient Behavior: Talkative, Restless, Anxious, Resistive to Care, Avoidant, Distractible, Crying, Uncooperative, Impulsive and Pacing Mood Description: Labile and Angry Affect Description: Labile and Angry Patient Cognition Impaired: No Ability to Follow Directions: Good Speech Pattern: Spontaneous Speech Memory Description: Episodic Impaired Hallucinations: None Delusions: Not Present Thought Process: Illogical and Distracted Thought Content: positive for [place], positive for Obsessional Thoughts, positive for Circumstantial and positive for Evasive Depressive Symptoms: Diff. Making Decisions and Increased Irritability Abnormal Motor Activity Signs and Symptoms: Agitation and Restlessness Judgement: Poor Diagnostics Vital Signs (24Hr): Vital Signs - 24 hr 08/07/20 16:56 08/08/20 06:05 Temperature 97.4 F 98.0 F Pulse Rate 82 76 Respiratory Rate 18 Blood Pressure 139/76 132/71 Pulse Oximetry 99 Body Mass Index 20.2 Labs Results: 08/03/20 17:15 08/03/20 19:45 Medications Medications Current Medications Generic Name Dose Route Start Last Admin Trade Name Freq PRN Reason Stop Dose Admin Acetaminophen 650 mg 08/08/20 14:48 Acetaminophen 325 Mg Tablet PO Q4H PRN Pain, Mild (Pain Scale 1-3) Al Hydroxide/Mg Hydroxide 30 ml 07/22/20 20:32 07/25/20 18:12 Magnesium Hydrox/Alum Hydrox 30 Ml Oral.Susp PO 30 ml Q6H PRN Administration Heartburn/Nausea Aripiprazole 20 mg 07/26/20 09:00 08/08/20 08:35 Aripiprazole 20 Mg Tablet PO 20 mg DAILY LUCAS Administration Benzocaine 1 appl 08/02/20 20:13 08/03/20 16:40 Benzocaine 10 % Oral Gel 9 Gm Tube MUCOUS MEM 1 appl QID PRN Administration tooth pain Protocol Clindamycin HCl 600 mg 08/04/20 00:00 08/08/20 16:07 Clindamycin Hcl 300 Mg Capsule PO 600 mg Q8H LUCAS Administration Clonidine HCl 0.1 mg 07/24/20 10:17 08/07/20 14:16 Clonidine Hcl 0.1 Mg Tablet PO 0.1 mg TID PRN Administration Opiate Withdrawal Protocol Diphenhydramine HCl 50 mg 07/22/20 21:39 08/07/20 17:48 Diphenhydramine Hcl 25 Mg Tablet PO 50 mg Q6H PRN Administration Muscle Spasm/dystonia Gabapentin 300 mg 08/03/20 09:00 08/08/20 08:34 Gabapentin 300 Mg Capsule PO Not Given DAILY LUCAS Gabapentin 600 mg 08/02/20 21:00 08/08/20 13:15 Gabapentin 600 Mg Tablet PO 600 mg DAILY@1300,2100 LUCAS Administration Hydroxyzine HCl 100 mg 08/07/20 10:31 08/07/20 21:07 Hydroxyzine Hcl 25 Mg Tablet PO 100 mg BEDTIME PRN Administration Anxiety Lamotrigine 75 mg 08/04/20 09:00 08/08/20 08:34 Lamotrigine 25 Mg Tablet PO 75 mg DAILY LUCAS Administration [place] Carbonate 600 mg 08/08/20 21:00 [place] Carbonate 300 Mg Capsule PO BID LUCAS Magnesium Hydroxide 30 ml 07/22/20 20:32 Milk Of Magnesia 30 Ml Oral.Susp PO DAILY PRN Constipation Multivitamins/Minerals 1 tab 07/23/20 09:00 08/08/20 08:35 Multivitamin With Minerals Tablet PO 1 tab DAILY LUCAS Administration Olanzapine 5 mg 08/03/20 12:03 08/07/20 18:17 Olanzapine 5 Mg Tablet PO 5 mg Q4H PRN Administration agitation Trazodone HCl 150 mg 08/06/20 21:00 08/07/20 21:09 Trazodone Hcl 50 Mg Tablet PO 150 mg BEDTIME LUCAS Administration Vitamin D 25 mcg 07/23/20 09:00 08/08/20 08:35 Cholecalciferol (Vitamin D3) 25 Mcg Tablet PO 25 mcg DAILY LUCAS Administration Allergies Allergies Allergy/AdvReac Type Severity Reaction Status Date / Time amoxicillin [Amoxicillin] Allergy Unknown HIVES Verified 06/22/20 20:19 From Augmentin Allergy Unknown HIVES Uncoded 03/03/20 18:12 Assessment & Plan Assessment & Plan (1) Pain, dental: Status: Acute Code(s): K08.89 - Other specified disorders of teeth and supporting structures Assessment and Plan: -Discontinue scheduled tylenol, tylenol prn -Pt refused CAT Scan x3 -Antibiotic Rx (2) Bipolar 1 disorder: Status: Acute Code(s): F31.9 - Bipolar disorder, unspecified Assessment and Plan: -Discontinue Wellbutrin -Increase [place] to 600 mg bid -Increase Abilify to 25 mg daily (3) Opioid dependence: Status: Acute Code(s): F11.20 - Opioid dependence, uncomplicated Assessment and Plan: -Pt has been declined by [facility] and refused to go to [facility]. -She is asking for outright discharge and reports a friend in [place] will be a support if she goes to residential care, however, she is not wanting residential care. Reports craving and wanting to use. -Consultation with team, will file Section XXXV on 08/09/20. (4) Cocaine dependence: Status: Acute Code(s): F14.20 - Cocaine dependence, uncomplicated Greater than 50% of the session was spent on counseling and/or coordination of care Patient educated on: medication risk/benefits, substance abuse and therapeutic strategies Informed Consent: understands and further education needed Reason for contiued inpatient stay Substantial Risk for: harm to self and rapid decompensation
[2020-08-08 18:00] VITALS: BP 131/86; PULSE 99; TEMP 36.6
[2020-08-08] MEDS: traZODone HCL 50 MG TABLET 150 MG PO (21:09)
[2020-08-08] MEDS: Lithium Carbonate 300 MG CAPSULE 600 MG PO (21:10)
[2020-08-08] MEDS: hydrOXYzine HCL 25 MG TABLET 100 MG PO (21:24)
[2020-08-08 23:57] VITALS: BP 128/76; PULSE 91
[2020-08-08] MEDS: diphenhydrAMINE HCL 25 MG TABLET 50 MG PO (23:57)
[2020-08-08] MEDS: cloNIDine HCL 0.1 MG TABLET PO (23:57)
[2020-08-09 06:15] VITALS: BP 108/61; PULSE 64; RESP 18; TEMP 37.1; O2SAT 99
[2020-08-09] MEDS: ARIPiprazole 5 MG TABLET 25 MG PO (08:48)
[2020-08-09] MEDS: lamoTRIgine 25 MG TABLET 75 MG PO (08:48)
[2020-08-09] MEDS: Lithium Carbonate 300 MG CAPSULE 600 MG PO (08:49)
[2020-08-09] MEDS: Cholecalciferol (Vitamin D3) 25 MCG TABLET PO (08:50)
--- NOTE | 2020-08-09 11:09 | PC.NURSE ---
Pt signed 3 day notice on 08/09/2020. Up on 08/12/2020. , social work, and Shanti Madrid notified.
--- NOTE | 2020-08-09 11:36 | PM.PSYDC ---
DS: Providers Provider Date of Service: 08/09/20 Date of admission: 07/22/20 20:32 Date of discharge: 08/09/20 Primary care physician: Roseanna Merlos Admitting clinician: Linda Ji Attending physician on admission: Daniel Medley Consults: 07/23/20 13:12 Consult to Hospitalist Routine Consulting Provider: Hospitalist 07/25/20 17:58 Consult to Hospitalist Routine Consulting Provider: Hospitalist 08/03/20 12:26 Consult to Hospitalist Routine Consulting Provider: Hospitalist Reason For Exam: pt reporting dental abscess/pain Attending physician on discharge: Daniel Medley Discharging clinician: Leny Lemus DS: Diagnosis Discharge Diagnosis (1) Pain, dental: Status: Acute (2) Bipolar 1 disorder: Status: Acute Problem details: Reports mood lability and requests we continue to work with her regime. (3) Opioid dependence: Status: Acute Problem details: 30 yo female, recent admission, to ER s/p injecting cocaine, fentanyl in her neck with severe adverse response, requiring Narcan. Pt was discharged from [facility] to [facility]-she reports she left the program to have her neck evaluated as when using she injects into her neck and was triggered to relapse by the team at [facility] encouraging her to remain clean. Agreed to return to residential care/[facility] upon discharge. (4) Cocaine dependence: Status: Acute DS: Medications Discharge Medications Home Medications: Previous Rx's Medication Instructions Recorded Vitamins and Minerals 1 tab PO DAILY #30 tab 06/30/20 aripiprazole [Abilify] 20 mg PO DAILY #30 tab 06/30/20 cholecalciferol (vitamin D3) 25 mcg PO DAILY #30 tab 06/30/20 aripiprazole [Abilify] 25 mg PO DAILY #10 tab 08/09/20 gabapentin 300 mg PO DAILY #10 cap 08/09/20 gabapentin 600 mg PO DAILY@1300,2100 #10 tab 08/09/20 lamotrigine 75 mg PO DAILY #21 tab 08/09/20 lithium carbonate 600 mg PO BID #28 cap 08/09/20 Discharge Plan Discharge Anticipated Discharge Date/Time: 08/09/20 12:00 Patient Disposition: Xfer Other Referrals: Martine Naik, therapist [Other] - 08/13/20 11:00 am (Telehealth) Roseanna Merlos psychiatrist [Other] - 09/07/20 11:20 am (Telehealth) Roseanna Merlos [employer] DIRECT[employer] [Nurse Practitioner] - 09/28/20 10:20 am (Telehealth) Discharge Medications: New gabapentin 600 mg Tablet 600 mg PO DAILY@1300,2100 Qty: 10 RF: 0 lamotrigine 25 mg Tablet 75 mg PO DAILY Qty: 21 RF: 0 lithium carbonate 300 mg Capsule 600 mg PO BID Qty: 28 RF: 0 gabapentin 300 mg Capsule 300 mg PO DAILY Qty: 10 RF: 0 aripiprazole [Abilify] 5 mg Tablet 25 mg PO DAILY Qty: 10 RF: 0 Narcan 4 mg/actuation spray,non-aerosol 4 mg intranasal Q2M PRN (Reason: opioid overdose) Qty: 2 RF: 0 Continued Vitamins and Minerals Tablet 1 tab PO DAILY Qty: 30 RF: 0 aripiprazole [Abilify] 20 mg Tablet 20 mg PO DAILY Qty: 30 RF: 0 cholecalciferol (vitamin D3) 25 mcg (1,000 unit) Tablet 25 mcg PO DAILY Qty: 30 RF: 0 Discontinued lithium carbonate 450 mg Tablet Extended Release 450 mg PO BEDTIME Qty: 30 RF: 0 lamotrigine 25 mg Tablet 25 mg PO DAILY Qty: 30 RF: 0 gabapentin 300 mg Capsule 600 mg PO TID Qty: 90 RF: 0 buprenorphine-naloxone 8-2 mg film 1 film buccal DAILY Qty: 5 RF: 0 Discharge Orders: Discharge Order (Routine); Ordered 08/09/20 Ordered By: Leny Lemus Diet: advance to usual diet Activity on Discharge: As tolerated Stand Alone Forms: Patient Portal Discharge page, Community Support Care Plan Goals: Mood Stabilization Sobriety Health Concerns: Opiate Dependence Cocaine Dependence Bipolar Disorder Plan of Treatment: You have signed a three day notice of intent to leave. You have declined referral to [facility] You have declined treatment options to support sobriety We have asked the court to consider Section XXXV as your use of drugs has impaired and threatened your life. The court has agreed and you will be admitted to the [facility] [place] per Section XXXV. Patient Instructions: Cocaine Abuse (ED), Opioid Use Disorder (ED) Discharge Date/Time: 08/09/20 13:15 Mental Status Exam Mental Status Exam Patient Appearance: Appropriate Patient Orientation: Person, Place, Time and Situation Level of Consciousness: Alert Patient Behavior: Anxious, Fearful, Resistive to Care and Avoidant Mood Description: Fearful, Angry and Apprehensive Affect Description: Constricted Patient Cognition Impaired: No Ability to Follow Directions: Good Speech Pattern: Spontaneous Speech Memory Description: Intact Hallucinations: None Delusions: Not Present Thought Process: Intact Thought Content: positive for Intact Depressive Symptoms: Increased Anxiety and Diff. Making Decisions Abnormal Motor Activity Signs and Symptoms: Agitation and Restlessness Judgement: Poor Data Data Completed and Pending Completed studies during hospitalization [Text1]: 08/03/20 08/03/20 17:15 19:45 WBC 7.2 RBC 4.67 Hgb 11.6 L Hct 35.7 L MCV 76.4 L MCH 24.8 L MCHC 32.5 RDW 16.8 H Plt Count 266 MPV 12.2 Immature Gran % (Auto) 1.1 H Neut % (Auto) 50.1 Lymph % (Auto) 35.2 [place] % (Auto) 10.4 Eos % (Auto) 2.9 Baso % (Auto) 0.3 Lymph # (Auto) 2.5 [place] # (Auto) 0.8 Eos # (Auto) 0.2 Baso # (Auto) 0.0 Abs Immat Gran (auto) 0.08 H Absolute Neuts (auto) 3.6 Absolute Nucleated RBC 0.000 Nucleated RBC % (auto) 0.0 Sodium 137 Potassium 4.7 Chloride 105 Carbon Dioxide 26 Anion Gap 11 L BUN 15 Creatinine 0.72 Estim Creat Clear Calc 103.1 Estimated GFR > 60 Random Glucose 108 Calcium 9.1 DS: Summary Hospital Course Hospital Course: Pt was admitted on a conditional voluntary. During her admission she did not participate often in the milieu and did not attend many groups, but remained isolative in spite of team efforts to engage her. She agreed to return to [facility], then began to express ambivalence regarding using Suboxone and finally discontinued it. Mood lability was evident, Abilify, Gabapentin, Lamictal and [place] were titrated during this time. A brief trial of Wellbutrin was completed and was tolerated but not helpful per her report. She was open in talking about cravings, however would not allow interventions. At the end of her admission she declined transfer to residential care, asked her father and former partner (in [place]) if they would be willing to have her live with them-both declined she reported, and she decided to go to the streets, signing a three day notice of intent to leave. She declined CAT scan of her neck to evaluate for injury after her injecting prior to admission. The team approached the court due to concern about her overdose and refusal of treatment. The court granted a Section XXXV and pt was admitted to the [facility] [place]. Time spent discussing smoking cessation with patient: 3 to 10 minutes Status at Discharge Cognitive/behavioral status at discharge: Angry- pt was discharged with police with a warrant to attend court for Section XXXV Functional status at discharge: independent ambulation Overall status at discharge: patient is not back to baseline Time Spent with Patient Time attestation: Total time spent providing and/or coordinating discharge services: Time spent: Less than 30 minutes
[2020-08-09] MEDS: Gabapentin 600 MG TABLET PO (13:13)
--- NOTE | 2020-08-09 13:30 | PC.NURSE ---
PT WAS SECTION 35ED AND PICKED UP BY [employer]. PT WAS CALM AND COOPERATIVE.
== END 2020-08-09 13:15 | disposition other institution (70) | DRG 753 ==
LOC: HO.ED 07-22 20:28 → HO.PM5 07-22 20:42
PROVIDERS: Internal Medicine; Physician Assistant; Admitting Provider Psychiatry & Neurology Psychiatry; Emergency Provider Emergency Medicine Emergency Medical Services; Visit Provider Clinical Nurse Specialist Psychiatric/Mental Health, Adult
DX: F31.9 Bipolar disorder, unspecified (principal); R45.851 Suicidal ideations; F11.20 Opioid dependence, uncomplicated; Z59.0 Homelessness; L08.9 Local infection of the skin and subcutaneous tissue, unspecified; F14.20 Cocaine dependence, uncomplicated; K08.89 Other specified disorders of teeth and supporting structures; L03.011 Cellulitis of right finger; F17.210 Nicotine dependence, cigarettes, uncomplicated; Z71.6 Tobacco abuse counseling; Z88.0 Allergy status to penicillin; Z79.899 Other long term (current) drug therapy
CPT/HCPCS: 0241U; 36415; 80048; 80053; 80061; 80178; 80307; 81003; 81025; 83036; 84443; 85025; 87635; 93005; 99285; J0573; J0574; J1200; J2060; Q0163